=== PATIENT | male | born 1935 | race Hispanic/Latino ===

== ENCOUNTER 2017-12-07 08:13 | Inpatient (IN) | payer MEDICARE ==
[2017-12-07] MEDS ORDERED: Nitroglycerin 50 MG/250 ML BOT 0 ML ONE (08:24)
[2017-12-07] MEDS ORDERED: Nitroglycerin 0.4 MG TAB (25 Tab Bottle) ONE (08:27)
[2017-12-07 08:37] LABS: Actual Bicarbonate (HCO3a) 25.7 mEq/L (22-26); Base Excess (BEa) -0.5 mEq/L (0 (+/-) 2.5); Hematocrit-ABG 37.7 % (42.0-52.0); Hemoglobin (Hb) 11.8 g/dL (14.0-18.0); O2 Tension (PaO2) 64.9 mmHg (80.0-100.0); pH, Arterial 7.34 (7.35-7.45)
[2017-12-07 08:38] LABS: Analyzer IN Cardio ER; Calcium, Ionized 1.2 mmol/L (1.12-1.30); Puncture Site RRA
[2017-12-07 08:44] LABS: #Eosinphils 0.4 thou/uL (0.0-0.7); #Lymphocytes 1.5 thou/uL (1.20-3.40); #Monocytes 0.6 thou/uL (0.11-0.59); #Neutrophils 6.1 thou/uL (1.40-6.50); %Basophils 0.1 % (0.0-1.0); %Eosinophils 4.4 % (0.0-10.0); %Lymphocytes 17.4 % (21.0-51.0); %Monocytes 6.5 % (0.0-10.0); %Neutrophils 71.7 % (42.0-75.0); Hemoglobin 12.2 g/dL (14.0-18.0); Mean Corpuscular HGB CONC 33.6 g/dL (32.0-36.0); Mean Corpuscular Hemoglobin 30.3 pg (27.0-31.0); Mean Platelet Volume 7.9 fL (7.4-10.4); Platelet Count 235 thou/uL (130-400); RBC Distribution Width 15.5 % (11.5-14.5); Red Blood Cell (RBC) Count 4.03 mill/uL (4.70-6.10); White Blood Cell (WBC) Count 8.5 thou/uL (4.8-10.8)
[2017-12-07 08:51] LABS: INR-International Normal Ratio 2.3
--- NOTE | 2017-12-07 09:01 | RAD ---
CHEST ONE VIEW: History: Dyspnea. Comparison: 09-25-14 FINDINGS: Cardiac silhouette is magnified and enlarged. Pulmonary vasculature is engorged. Widespread reticular nodular interstitial opacity is present with partial obscuration of the left cardiac margin. The med iastinum is midline with post-operative changes and a dual lead left subclavian cardiac electronic de vice. environmental geologist leads overlie the chest. IMPRESSION: Cardiomegaly with pulmonary vasculature congestion. Clinical correlation regarding other signs and sy mptoms of CHF is required. POS: DASHAWN
[2017-12-07 09:07] LABS: ALT (SGPT) 15 U/L (8-55); AST (SGOT) 17 U/L (5-34); Alkaline Phosphatase 79 U/L (40-150); Anion Gap 11 mmol/L (10-20); BUN (Urea Nitrogen) 18 mg/dL (8.4-25.7); Bilirubin, Total 0.9 mg/dL (0.2-1.2); CK (CPK) 84 U/L (30-200); Calc. Creatinine Clearance 0 mL/min (70-130); Calcium 8.9 mg/dL (7.8-10.44); Carbon Dioxide 26 mmol/L (23-31); Chloride 109 mmol/L (98-107); Estimated GFR-MDRD Greater than 90; Globulin 3.9 g/dL (2.4-3.5); Glucose 172 mg/dL (83-110); Lipase 37 U/L (8-78); Magnesium 1.8 mg/dL (1.6-2.6); Potassium 3.8 mmol/L (3.5-5.1); Protein, Total 7.9 g/dL (5.8-8.1); Sodium 142 mmol/L (136-145)
[2017-12-07 09:10] LABS: CKMB 1.1 ng/mL (0-6.6); Troponin I Less than 0.010 ng/mL (< 0.028)
[2017-12-07] MEDS ORDERED: Lisinopril 10 MG TAB ONE (11:23)
[2017-12-07] MEDS ORDERED: Nitroglycerin 2% Ointment 1 INCH/1 GM Packet ONE (11:23)
[2017-12-07 12:26] LABS: Troponin I Less than 0.010 ng/mL (< 0.028)
--- NOTE | 2017-12-07 12:40 | CT ---
CT PULMONARY ANGIOGRAM WITH IV CONTRAST AND 3D POST PROCESSING: HISTORY: History of dyspnea. Chest pain. FINDINGS: There is good contrast opacification of the pulmonary arterial vasculature without filling defects to suggest pulmonary embolism. There are vascular calcifications without evidence of aneurysmal dilata tion of the thoracic aorta. There are changes of median sternotomy and CABG. No pericardial effusio ns are seen. There are bilateral pleural effusions, small on the left and moderate on the right. Ad jacent atelectatic changes are present. No pneumothoraces are identified. There are some prominent mediastinal and hilar lymph nodes and some of these are calcified. These are stable since CT chest o f 03/23/2016. There are degenerative changes of the spine. IMPRESSION: 1. No CT evidence of pulmonary embolism. 2. Bilateral pleural effusions, right larger than left. POS: OFF
[2017-12-07] MEDS ORDERED: ISOVUE-370 76%-LOCM 1 ML ONE (14:55)
[2017-12-07] MEDS ORDERED: Docusate 100 MG CAP PO PRN (15:20)
[2017-12-07] MEDS ORDERED: HYDROcodone/Acetaminophen 5/325 mg Tablet PO PRN ×3 (15:20→15:34)
[2017-12-07 15:29] LABS: Troponin I Less than 0.010 ng/mL (< 0.028)
[2017-12-07] MEDS ORDERED: Acetaminophen 325 MG TAB PO PRN (15:31)
[2017-12-07] MEDS ORDERED: Aspirin 325 MG TAB PO SCH (15:45)
[2017-12-07] MEDS ORDERED: Furosemide 40 MG/4 ML VIAL SLOW IVP SCH (15:45)
--- NOTE | 2017-12-07 16:04 | HP ---
DATE OF ADMISSION: 12/07/2017 CHIEF COMPLAINT: Shortness of breath. HISTORY OF PRESENT ILLNESS: This is an 82-year-old morbidly obese white male with a known history of cardiac bypass done many years ago and has a history of pacemaker. He has known history of hyperten johanna. He was in his usual state of health until yesterday. He noted swelling of his arms and he fel t some sort of shortness of breath which and this morning when he woke up, his blood pres sures were in 190s or sometimes in more than 200. It was associated with severe shortness of breath more on exertion, not associated with any chest pain, no nausea, no vomiting, no diarrhea, and no con stipation. He denied having any cough. Denied having any sick contacts. No history of fever. PAST MEDICAL HISTORY: 1. Hypertension. 2. Hyperlipidemia. 3. History of coronary artery disease with CABG. 4. Type 2 diabetes mellitus. 5. History of atrial fibrillation on Coumadin. 6. Hypothyroidism. 7. Obstructive sleep apnea. 8. Morbid obesity. PAST SURGICAL HISTORY: Right ankle surgery in 2009, CABG in 2001, triple bypass, herniated disk surg viridiana in 1993, right knee surgery in 1997, appendectomy in 2001. SOCIAL HISTORY: Former smoker, quit smoking 4 years ago. Lives with his family. ALLERGIES: PENICILLIN. FAMILY HISTORY: No significant family history of coronary artery disease or any cancers in the famil y. HOME MEDICATIONS: 1. Aspirin 81 mg p.o. daily. 2. Atorvastatin 40 mg p.o. daily. 3. Ciprofloxacin. 4. Docusate 100 mg p.o. daily. 5. Avodart 0.5 mg p.o. daily. 6. Lasix 80 mg p.o. daily. 7. Hydrocodone one tablet q.4 hours p.r.n. 8. Isosorbide mononitrate. 9. Levothyroxine. 10. Metoprolol 50 mg p.o. b.i.d. 11. Sitagliptin 1 tablet p.o. b.i.d. 12. Tamsulosin 0.4 mg p.o. daily. 13. Warfarin 2 mg p.o. as directed. REVIEW OF SYSTEMS: All 12 systems reviewed with the patient thoroughly and found to be negative at t his time. 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 PHYSICAL EXAMINATION: VITAL SIGNS: Blood pressure 194/110, respiratory rate is 18, saturation 100%, pulse of 68. GENERAL: The patient is moderately built and morbidly obese. He is alert and oriented x3. HEENT: Atraumatic, normocephalic. PERRLA. Extraocular muscles are intact. Oral mucous pink and mo ist. CARDIOVASCULAR: S1 and S2 normal. No murmurs, rubs or gallops. LUNGS: Bilateral air entry was equal. No wheezing, no crackles. ABDOMEN: Soft, nontender, no guarding, no rebound tenderness. Bowel sounds normal. MUSCULOSKELETAL: No calf tenderness. No pedal edema, no joint tenderness, no joint swelling. SKIN: No cyanosis, no erythema, no rash, no pallor. CENTRAL NERVOUS SYSTEM: Cranial nerve examination II-XII intact. No focal deficits were noted. PSYCHIATRIC: No signs of suicidal ideation and no signs of maury. LABORATORY DATA: WBC 8.5, hemoglobin is 12.2, hematocrit 36.2, platelets 235. Sodium is 142, potass ium 3.8, chloride is 109, bicarbonate 26, BUN is 18, creatinine 0.76, blood sugar 172, INR is 2.3. ASSESSMENT AND PLAN: 1. Acute accelerated hypertension. 2. Acute diastolic heart failure. 3. Acute hypoxic respiratory failure. 4. Type 2 diabetes mellitus. 5. Coronary artery disease with coronary artery bypass grafting. 6. History of atrial fibrillation on anticoagulation. PLAN: 1. Plan is to start the patient on Lasix at 40 mg IV b.i.d. and we will closely monitor the patient. The patient is started on nitropatch. In the ER, patient responded to sublingual nitro. He is alr nereyda on isosorbide mononitrate 60 mg. We will continue with this medication at this time. There was no lisinopril on the medication list, we will start the patient on lisinopril of 10 mg p.o. daily al mike with spironolactone of 12.5 mg p.o. daily. We will consult Cardiology and do a 2D echo to look f or any evidence of wall motion abnormality as the patient was complaining of dyspnea on exertion. Th e patient may need to be further evaluated for coronary artery disease. 2. Type 2 diabetes mellitus, well-controlled. We will hold off on the metformin at this time. Star t the patient on sliding scale insulin. 3. Atrial fibrillation, rate controlled at this time. We will continue the patient on Coreg and con tinue on Coumadin. INR is therapeutic at this time. 4. Morbid obesity: Encouraged the patient to lose weight for better control of the blood pressures. 5. Deep venous thrombosis prophylaxis, patient is on Coumadin. I spent 75 minutes on this patient.
[2017-12-07] MEDS ORDERED: Warfarin Sodium 2 MG TAB PO SCH (18:30)
[2017-12-07 18:41] VITALS: BMI 39.4
[2017-12-07 19:26] LABS: Hemoglobin 12.6 g/dL (14.0-18.0); Platelet Count 272 thou/uL (130-400)
[2017-12-07 19:33] LABS: INR-International Normal Ratio 2.2; PTT 36.5 SEC (22.9-36.1); Prothrombin Time 25.7 SEC (12.0-14.7)
[2017-12-07] MEDS ORDERED: Dextrose 5% in Water 1,000 ML IV PRN (21:21)
[2017-12-07] MEDS ORDERED: HumaLOG 300 UNITS/3 ML VIAL SC PRN (21:21)
[2017-12-07] MEDS ORDERED: Dextrose 50% Abboject 50 ML SYRINGE IVP PRN (21:21)
[2017-12-07] MEDS: Carvedilol 3.125 MG TAB PO SCH (21:52)
[2017-12-08 05:13] LABS: #Basophils 0.1 thou/uL (0.0-0.2); #Eosinphils 0.4 thou/uL (0.0-0.7); #Lymphocytes 1.5 thou/uL (1.20-3.40); #Monocytes 0.7 thou/uL (0.11-0.59); #Neutrophils 7.2 thou/uL (1.40-6.50); %Basophils 0.6 % (0.0-1.0); %Eosinophils 3.9 % (0.0-10.0); %Lymphocytes 14.9 % (21.0-51.0); %Monocytes 6.7 % (0.0-10.0); %Neutrophils 73.9 % (42.0-75.0); Hemoglobin 11.5 g/dL (14.0-18.0); Mean Corpuscular HGB CONC 33.5 g/dL (32.0-36.0); Mean Corpuscular Hemoglobin 29.3 pg (27.0-31.0); Mean Corpuscular Volume 87.4 fl (80.0-94.0); Mean Platelet Volume 7.6 fL (7.4-10.4); Platelet Count 243 thou/uL (130-400); RBC Distribution Width 15.3 % (11.5-14.5); Red Blood Cell (RBC) Count 3.92 mill/uL (4.70-6.10); White Blood Cell (WBC) Count 9.8 thou/uL (4.8-10.8)
[2017-12-08 05:28] LABS: Anion Gap 8 mmol/L (10-20); BUN (Urea Nitrogen) 17 mg/dL (8.4-25.7); Calc. Creatinine Clearance 112 mL/min (70-130); Calcium 8.8 mg/dL (7.8-10.44); Carbon Dioxide 32 mmol/L (23-31); Cardiac Risk 3.8 (Less than 4.5); Chloride 104 mmol/L (98-107); Cholesterol 102 mg/dl (< 200 Desired); Estimated GFR-MDRD Greater than 90; Glucose 89 mg/dL (83-110); HDL Cholesterol 27 mg/dL (>60 Neg Risk); LDL Cholesterol, Calculated 51 mg/dL; Sodium 141 mmol/L (136-145); Triglycerides 121 mg/dL (Less than 150)
[2017-12-08] MEDS: Furosemide 40 MG/4 ML VIAL SLOW IVP SCH ×2 (06:22→15:08)
[2017-12-08] MEDS: Levothyroxine Sodium 100 MCG TAB PO SCH (06:22)
[2017-12-08] MEDS ORDERED: Aspirin 81 mg Enteric Coated Tablet PO SCH (09:00)
[2017-12-08] MEDS ORDERED: Lisinopril 10 MG TAB PO SCH (09:00)
[2017-12-08] MEDS ORDERED: Enoxaparin Sodium 40 MG/0.4 ML SYRINGE SC SCH (09:00)
[2017-12-08] MEDS: Tamsulosin HCl 0.4 MG CAP PO SCH (09:23)
[2017-12-08] MEDS: Spironolactone 25 MG TAB PO SCH (09:23)
[2017-12-08] MEDS: Aspirin 325 MG TAB PO SCH (09:23)
[2017-12-08] MEDS: Atorvastatin Calcium 40 MG TAB PO SCH (09:23)
[2017-12-08] MEDS: Dutasteride 0.5 MG CAP PO SCH (09:23)
[2017-12-08] MEDS: Carvedilol 3.125 MG TAB PO SCH (09:24)
[2017-12-08] MEDS: Insulin NPH/Reg Insulin Hm 300 UNITS/3 ML VIAL SC SCH ×2 (09:26→20:58)
--- NOTE | 2017-12-08 13:24 | PQF ---
CLINICAL DOCUMENTATION IMPROVEMENT CLARIFICATION FORM: ICD-10 Updated PLEASE DO AN ADDENDUM TO THE PROGRESS NOTE WITH ANY DOCUMENTATION UPDATES OR ADDITIONS AND CARRY THROUGH TO DC SUMMARY. THANK YOU. DATE: 12/08/17 ATTN: DR. ZAMORA / DR. IBRAHIM Please exercise your independent, professional judgment in responding to the clarification form. Clinical indicators are provided on the bottom of this form for your review Please check appropriate box(s): [ ] Acute Respiratory Failure: [ ] with Hypoxia[ ] with Hypercapnia [ ] Acute On Chronic Respiratory Failure: [ ] with Hypoxia [ ] with Hypercapnia [ ] Acute Respiratory Failure due to: (etiology) [ ] Acute Respiratory Insufficiency following (if applicable): [ ] trauma [ ] surgery [ ] Chronic Respiratory Failure only [ ] with Hypoxia [ ] with Hypercapnia [ ] Hypoxia [ ] Other diagnosis [ ] Unable to determine In addition, please specify: Present on Admission (POA): [ ] Yes [ ] No [ ] Unable to determine For continuity of documentation, please document condition throughout progress notes and discharge summary. Thank You. CLINICAL INDICATORS - SIGNS / SYMPTOMS / LABS RR 34 86% ROOM AIR RISKS: CHF EXACERBATION TREATMENT: BIPAP IV LASIX SPIRONOLACTONE CARDIAC MONITORING (This form is maintained as a part of the permanent medical record) 2014 [employer]. All Rights Reserved [email or web address] Office: [phone] [facility]
--- NOTE | 2017-12-08 13:50 | PDOC.PN ---
- Subjective Encounter Start Date: 12/08/17 Encounter Start Time: 13:49 Mr. Malloy was seen today in follow-up of CHF. He says he is breathing much better today. He denies any chest pain. - Objective Resuscitation Status: Resuscitation Status FULL:Full Resuscitation MAR Reviewed: Yes Vital Signs & Weight: Vital Signs (12 hours) Temp Pulse Pulse Pulse Pulse Resp BP 12/08/17 11:38 86 75 72 12/08/17 10:46 68 62 12/08/17 09:24 169/72 H 12/08/17 08:00 97.8 F 62 18 12/08/17 04:00 97.8 F 62 18 BP BP BP BP Pulse Ox Pulse Ox Pulse Ox 12/08/17 11:38 192/79 H 162/72 H 144/67 H 85 L 93 L 12/08/17 10:46 168/72 H 168/77 H 92 L 90 L 12/08/17 09:24 12/08/17 08:00 169/72 H 98 12/08/17 04:00 137/66 98 Pulse Ox 12/08/17 11:38 92 L 12/08/17 10:46 12/08/17 09:24 12/08/17 08:00 12/08/17 04:00 Weight Weight 201 lb 9 oz I&O: 12/07/17 12/08/17 12/09/17 06:59 06:59 06:59 Intake Total 320 Balance 320 Result Diagrams: 12/08/17 04:18 12/08/17 04:18 Additional Labs: Accuchecks 12/07/17 12/07/17 20:52 18:23 POC Glucose 133 H 91 Phys Exam - Physical Examination HEENT: PERRLA Respiratory: no wheezing, no rales, no rhonchi, clear to auscultation bilateral Cardiovascular: RRR, no significant murmur, no rub Gastrointestinal: soft, non-tender, no distention, positive bowel sounds Musculoskeletal: edema present 1+ pedal edema Dx/Plan (1) CHF exacerbation Code(s): I50.9 - HEART FAILURE, UNSPECIFIED Status: Acute (2) Hypertension, uncontrolled Code(s): I10 - ESSENTIAL (PRIMARY) HYPERTENSION Status: Acute (3) Atrial fibrillation Code(s): I48.91 - UNSPECIFIED ATRIAL FIBRILLATION Status: Acute (4) Diabetes mellitus Code(s): E11.9 - TYPE 2 DIABETES MELLITUS WITHOUT COMPLICATIONS Status: Acute - Plan * CHF exacerbation- ? type- his last Echo in our system was in 2014, and the EF at that time was 55%- Continue IV Lasix, and await Echo * Also await Cardiology input * HTN- poorly controlled- he says thiis is a recent problem, as his blood pressure had been well controlled- will monitor the trend, and consider increasing the dose of Lisinopril * DM- blood glucose is stable * Replace Potassium * AFIB- HR is stable- monitor PT/INR
[2017-12-08] MEDS ORDERED: Potassium Chloride 20 MEQ TAB PO SCH (14:00)
[2017-12-08] MEDS: Warfarin Sodium 1 MG TAB PO SCH (16:30)
[2017-12-08 20:15] LABS: INR-International Normal Ratio 2.5; PTT 39.4 SEC (22.9-36.1); Prothrombin Time 27.8 SEC (12.0-14.7)
[2017-12-08] MEDS: Metoprolol Tartrate 100 MG TAB PO SCH (20:57)
[2017-12-09] MEDS: Furosemide 40 MG/4 ML VIAL SLOW IVP SCH ×2 (05:37→15:31)
[2017-12-09] MEDS: Levothyroxine Sodium 100 MCG TAB PO SCH (05:37)
[2017-12-09] MEDS: Metoprolol Tartrate 100 MG TAB PO SCH ×2 (09:18→20:54)
[2017-12-09] MEDS: Spironolactone 25 MG TAB PO SCH (09:18)
[2017-12-09] MEDS: Aspirin 325 MG TAB PO SCH (09:19)
[2017-12-09] MEDS: Dutasteride 0.5 MG CAP PO SCH (09:19)
[2017-12-09] MEDS: Atorvastatin Calcium 40 MG TAB PO SCH (09:19)
[2017-12-09] MEDS: Tamsulosin HCl 0.4 MG CAP PO SCH (09:19)
--- NOTE | 2017-12-09 09:34 | CON ---
DATE OF CONSULTATION: 12/08/2017 HISTORY OF PRESENT ILLNESS: Thanh Malloy is an 82-year-old male that I have been following since November 1993. 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 With exertion, he had burning in his chest associated with shortness of breath, relieved with rest in 1 minute. He went to the [facility] for evaluation and was found to have minor changes on his EKG and was transferred to [place]. He had biphasic anterolateral T-wave changes. He underwent cardiac catheterization and had a 90% proximal LAD with the distal vessel filling retrograde from the right coronary artery. There was a 50% proximal circumflex and 60% first obtuse marginal lesion. He had normal left ventricular function. Later that day, he returned to the sugar laboratory assistant and underwent directional coronary atherectomy of the proximal LAD with final result of 10%. In 05/1994, he underwent treadmill testing, which was negative for ischemia. He did not return for followup. In 07/2002, he had an abnormal Cardiolite scan and underwent repeat catheterization by Dr. Willis. This revealed a 90% LAD, 95% apical LAD, 75% circumflex, 99% second obtuse marginal. The right coronary artery did not have any significant disease. He underwent CABG x3 with ALCALA to the LAD and vein graft to the second obtuse marginal and radial artery to the first obtuse marginal. Postoperatively, he had atrial fibrillation. I did see him in 10/2005 and he was walking 2-1/2 to 4 miles per day without difficulty. He was not seen again until 11/2011 when he was admitted complaining of throat soreness and mild cough for 3 days. He had a temperature of 102 at home. He also complained of chest discomfort in the upper part of his sternal incision that was tender to the touch. He was in atrial fibrillation when he presented to the emergency room. CT angiogram was performed due to elevated D-dimer. This revealed no evidence of pulmonary embolism. He was placed on Cardizem drip and converted back to sinus rhythm. He was placed on beta-brooke and Cardizem was tapered. He was on amlodipine and had leg edema and the amlodipine was stopped and he was gently diuresed. He was placed on Lovenox and then Coumadin. 2-1/2 weeks later, he returned with increased shortness of breath and COPD exacerbation. He was noted to be bradycardic with heart rates in the 40s. Due to his bradycardia, metoprolol was reduced and then he started to have episodes of supraventricular tachycardia and possible atrial flutter and atrial fibrillation. He was again given metoprolol and his heart rate was in the 40s. He was seen by Dr. Grover and it was recommended that a pacemaker be placed. Coumadin was held and he ultimately underwent pacemaker placement. He was then placed on Multaq 400 b.i.d. and Coumadin was restarted. In 03/2012, he was doing well when seen in the office. Pacemaker interrogation showed that he had multiple short episodes per day of atrial fibrillation. He was placed on digoxin for better rate control. In 05/2012, he was still having intermittent episodes of atrial fibrillation and his atrial therapies on his pacemaker were turned on. In 07/2012, he was admitted with increased shortness of breath, which was felt to be due to acute on chronic diastolic heart failure. He was placed on intravenous diuretics and his symptoms improved. During that admission, he was chronically in atrial fibrillation. In 08/2012, he again presented complaining of 5-7 days of worsening dyspnea. During that admission, he was seen by Dr. Linda. It was recommended that he undergo catheter ablation of his atrial fibrillation with his significant diastolic dysfunction. Echo during that admission revealed ejection fraction of 50%-55% with evidence of diastolic dysfunction. Tikosyn was also discussed, however, he declined. He was then admitted one month later in September 2012 with increased lower extremity edema for 3-4 days and shortness of breath. He was in atrial fibrillation. Multaq was discontinued at that time. He again declined Tikosyn. He ultimately underwent radiofrequency ablation of the atrial fibrillation on 10/20/2012. Apparently after that, he did not have any significant rhythm issues. After the ablation, he noticed a dramatic increase in his exercise tolerance. In 07/2013, he had no symptoms. In 03/2014, he had been working in a 1 to 1.5 acre garden and continued to work outside. He was then admitted in 09/2014 with left-sided chest discomfort that radiated to his left arm. This lasted for 3-4 hours and ultimately he came to the emergency room. Peak troponin I was 2.135, MBs were normal. He ultimately underwent cardiac catheterization. This revealed moderate anterior hypokinesis with ejection fraction of 45%-50%. The left main had a 60% stenosis, 70% proximal LAD. The diagonal was totally occluded and filled from the graft to the first obtuse marginal and graft to the second obtuse marginal. There was 60 % ramus. The circumflex had an 80% proximal stenosis and was totally occluded in its mid portion. The right coronary artery had a 50% proximal stenosis and 50% distal stenosis. Bypass grafts revealed patent ALCALA to the LAD; however, there was 95% distal LAD and a diffuse disease. The left radial to the first obtuse marginal was patent. The vein to the second obtuse marginal was patent. It was felt that his coronary anatomy was stable except for the diffuse LAD disease distal to the ALCALA. It was also discovered during that admission that he had stopped metoprolol 50 b.i.d. 6-8 weeks prior to admission. After his metoprolol was resumed, he had significant improvement in his breathing. He has continued to be followed in the office. He did need to undergo pacemaker replacement for pacemaker at end of life in 02/2017. He was last seen on 2017. He denied any chest discomfort or shortness of breath. His blood pressure is 137/85 during that office visit. He now is admitted with increased shortness of breath, one episode that lasted 10-15 seconds, but then he had another episode that was continuous. His took his blood pressure and it was 220/104, and he was brought to the emergency room for further evaluation. With intravenous Lasix, his breathing has improved and he feels like he is pretty much back to normal. He denies having run out of any of his medications. He denies any chest discomfort. PAST MEDICAL HISTORY: Hypertension; diabetes; hyperlipidemia; obesity; hypothyroidism; COPD; obstructive sleep apnea, on CPAP; tachybrady syndrome; history of diastolic heart failure; coronary artery disease. PAST SURGICAL HISTORY: CABG, pacemaker placement and ultimately replacement in 02/2017, radiofrequency ablation of atrial fibrillation. MEDICATIONS: When he was last seen in the office include, aspirin 81 daily, atorvastatin 20 mg daily, finasteride 5 mg daily, furosemide 80 mg q.a.m., insulin NPH, isosorbide mononitrate 60, levothyroxine 100 mcg daily, metoprolol 50 mg 1-1/2 tablets b.i.d., potassium 20 mEq daily, Janumet 1 tablet b.i.d., Flomax 0.4 daily, and warfarin. ALLERGIES: PENICILLIN. SOCIAL HISTORY: He smoked 3 packs per day, but stopped 43 years ago. He has not had any alcohol in 38 years. 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 FAMILY HISTORY: Negative for myocardial infarction and CABG. REVIEW OF SYSTEMS: Twelve-point review of systems is otherwise unremarkable. PHYSICAL EXAMINATION: VITAL SIGNS: Blood pressure 120/58, pulse of 65. HEENT: PERRL. NECK: Supple. CHEST: Clear. CARDIAC: S1 and S2 are normal without any S3 or S4. There was a 2/6 systolic murmur in the aortic area. Carotid upstrokes normal. ABDOMEN: Normal bowel sounds without tenderness. The abdomen is obese. EXTREMITIES: Revealed 1+ pretibial edema. NEUROLOGIC: Grossly intact. SKIN: Warm and dry. LABORATORY DATA: EKG reveals atrial pacing without any acute changes, although there is lot of baseline artifact. I do not see the pacemaker interrogation in the chart; however, [employer] account service representative stated that there was no atrial fibrillation. Chest x-ray revealed cardiomegaly with pulmonary vascular congestion and a pacemaker in place. Chest CTA revealed no evidence of pulmonary embolism. There were bilateral pleural effusions. Hemoglobin 11.5, hematocrit 34.2, white count 5800, platelets 243,000. PH 7.34 , pCO2 49.0, pO2 64.9. Sodium 141, potassium 3.0, chloride 104, carbon dioxide 32, BUN 17, creatinine 0.68. Cholesterol 102, triglycerides 121, HDL 27, LDL 51. Cardiac enzymes were unremarkable. BNP is 166.2. IMPRESSION: 1. Acute on chronic diastolic heart failure. 2. Aortic valvular fibrosis in the past; however, this certainly may have progressed since his last echo was 3 years ago. 3. Status post coronary artery bypass graft x3 with grafts patent in 09/2014. 4. History of tachybrady syndrome with paroxysmal atrial fibrillation as well as episodes of significant bradycardia. He has undergone radiofrequency ablation of his atrial fibrillation and pacemaker placement. 5. Continued episodes of atrial arrhythmias on pacemaker, although these were coming less frequent. 6. Diabetes mellitus. 7. Hyperlipidemia, under good control. 8. Hypertension. 9. Obesity. 10. Obstructive sleep apnea. PLAN: The patient will undergo echocardiography. He will continue to be diuresed. We will increase his metoprolol to 100 mg b.i.d. MTDD
--- NOTE | 2017-12-09 10:48 | PDOC.PN ---
- Subjective Encounter Start Date: 12/09/17 Encounter Start Time: 10:46 Mr. Malloy was seen today in follow-up. He says he is feeling much better. He denies feeling short of breath. He denies any chest pain. - Objective Resuscitation Status: Resuscitation Status FULL:Full Resuscitation MAR Reviewed: Yes Vital Signs & Weight: Vital Signs (12 hours) Temp Pulse Resp BP Pulse Ox 12/09/17 07:25 97.4 F L 61 18 169/71 H 98 12/09/17 07:15 97.4 F L 61 18 98 12/09/17 04:00 97.4 F L 63 16 130/60 93 L 12/09/17 01:03 63 16 95 Weight Weight 197 lb 1 oz I&O: 12/08/17 12/09/17 12/10/17 06:59 06:59 06:59 Intake Total 320 150 Output Total 250 Balance 320 -100 Result Diagrams: 12/08/17 04:18 12/08/17 04:18 Additional Labs: Accuchecks 12/09/17 12/08/17 12/08/17 06:03 20:23 15:27 POC Glucose 77 242 H 116 H Phys Exam - Physical Examination HEENT: PERRLA Respiratory: no wheezing, no rales, no rhonchi, clear to auscultation bilateral Cardiovascular: RRR, no significant murmur, no rub Gastrointestinal: soft, non-tender, no distention, positive bowel sounds Musculoskeletal: edema present 1+ pitting edema Dx/Plan (1) CHF exacerbation Code(s): I50.9 - HEART FAILURE, UNSPECIFIED Status: Acute (2) Hypertension, uncontrolled Code(s): I10 - ESSENTIAL (PRIMARY) HYPERTENSION Status: Acute (3) Atrial fibrillation Code(s): I48.91 - UNSPECIFIED ATRIAL FIBRILLATION Status: Acute (4) Diabetes mellitus Code(s): E11.9 - TYPE 2 DIABETES MELLITUS WITHOUT COMPLICATIONS Status: Acute (5) Diuretic-induced hypokalemia Code(s): E87.6 - HYPOKALEMIA; T50.2X5A - ADVRS EFF OF CRBNC-ANHYDR INHIBTR, BENZO/OTH DIURETC, INIT Status: Acute - Plan * Acute on chronic diastolic heart failure- continue IV Lasix * He is diuresing well and has lost 3 pounds * Echo results are pending * DM- blood glucose is stable. * AFIB- his heart rate is stable, periodically paced * Repeat BMP, and replace potassium as needed * Disposition as per Cardiology
[2017-12-09 11:40] LABS: Anion Gap 13 mmol/L (10-20); BUN (Urea Nitrogen) 19 mg/dL (8.4-25.7); Calc. Creatinine Clearance 94 mL/min (70-130); Carbon Dioxide 30 mmol/L (23-31); Chloride 102 mmol/L (98-107); Estimated GFR-MDRD Greater than 90; Glucose 150 mg/dL (83-110); Potassium 3.7 mmol/L (3.5-5.1); Sodium 141 mmol/L (136-145)
[2017-12-09] MEDS: Insulin NPH/Reg Insulin Hm 300 UNITS/3 ML VIAL SC SCH ×2 (15:30→20:54)
[2017-12-09] MEDS: Warfarin Sodium 2 MG TAB PO SCH (16:22)
[2017-12-09 19:18] LABS: Platelet Count 267 thou/uL (130-400)
[2017-12-09 19:25] LABS: PTT 37.3 SEC (22.9-36.1)
[2017-12-09 19:26] LABS: INR-International Normal Ratio 2.3
[2017-12-10 06:05] LABS: INR-International Normal Ratio 2.5; Prothrombin Time 27.6 SEC (12.0-14.7)
[2017-12-10 06:09] LABS: Anion Gap 10 mmol/L (10-20); BUN (Urea Nitrogen) 22 mg/dL (8.4-25.7); Calc. Creatinine Clearance 99 mL/min (70-130); Calcium 8.5 mg/dL (7.8-10.44); Carbon Dioxide 31 mmol/L (23-31); Chloride 105 mmol/L (98-107); Estimated GFR-MDRD Greater than 90; Glucose 63 mg/dL (83-110); Potassium 3.1 mmol/L (3.5-5.1); Sodium 143 mmol/L (136-145)
[2017-12-10] MEDS: Levothyroxine Sodium 100 MCG TAB PO SCH (06:09)
[2017-12-10] MEDS: Furosemide 40 MG/4 ML VIAL SLOW IVP SCH (06:09)
--- NOTE | 2017-12-10 08:14 | PDOC.PN ---
- Subjective Encounter Start Date: 12/10/17 Encounter Start Time: 08:12 Mr. Malloy was seen today in follow-up. He does not have any complaints. He says he has walked all around the nursing station without proble. He denies chest pain or difficulty breathing. - Objective Resuscitation Status: Resuscitation Status FULL:Full Resuscitation MAR Reviewed: Yes Vital Signs & Weight: Vital Signs (12 hours) Temp Pulse Resp BP Pulse Ox 12/10/17 03:44 97.4 F L 62 18 164/77 H 92 L Weight Weight 198 lb 8 oz I&O: 12/09/17 12/10/17 12/11/17 06:59 06:59 06:59 Intake Total 150 630 Output Total 250 600 Balance -100 30 Result Diagrams: 12/09/17 19:12 12/10/17 05:31 Additional Labs: Accuchecks 12/10/17 12/09/17 12/09/17 06:11 20:31 15:54 POC Glucose 67 L 264 H 165 H 12/09/17 10:28 POC Glucose 156 H Phys Exam - Physical Examination HEENT: PERRLA Respiratory: no wheezing, no rales, no rhonchi, clear to auscultation bilateral Cardiovascular: RRR, no significant murmur, no rub Gastrointestinal: soft, non-tender, no distention, positive bowel sounds Musculoskeletal: no edema Dx/Plan (1) CHF exacerbation Code(s): I50.9 - HEART FAILURE, UNSPECIFIED Status: Acute Qualifiers: Heart failure type: diastolic Qualified Code(s): I50.33 - Acute on chronic diastolic (congestive) heart failure (2) Hypertension, uncontrolled Code(s): I10 - ESSENTIAL (PRIMARY) HYPERTENSION Status: Chronic (3) Atrial fibrillation Code(s): I48.91 - UNSPECIFIED ATRIAL FIBRILLATION Status: Chronic (4) Diabetes mellitus Code(s): E11.9 - TYPE 2 DIABETES MELLITUS WITHOUT COMPLICATIONS Status: Chronic (5) Diuretic-induced hypokalemia Code(s): E87.6 - HYPOKALEMIA; T50.2X5A - ADVRS EFF OF CRBNC-ANHYDR INHIBTR, BENZO/OTH DIURETC, INIT Status: Acute - Plan * Acute on chronic diastolic heart failure- patient has diuresed well. He has also symptomatically improved * Echo results noted EF is estimated at 55-60% with LVH * Hypokalemia- replace Potassium * DM- blood glucose is a bit low, will monitor * Likely home soon.
--- NOTE | 2017-12-10 08:15 | RAD ---
CHEST 1 VIEW: Date: 12/10/17 HISTORY: Pulmonary edema. COMPARISON: 12/07/17. FINDINGS: Cardiac silhouette is magnified and upper limits of normal in size. Pulmonary vasculature is upper li mits of normal but improved compared to the prior study. Mediastinum is midline with postoperative ch anges, aortic calcification, and a dual lead left subclavian cardiac electronic device. No lobar cons olidation or evidence of pneumothorax. rac specialist leads overlie the chest. IMPRESSION: Interval decrease in degree of pulmonary vascular congestion. POS: DASHAWN
[2017-12-10] MEDS ORDERED: Potassium Chloride 20 MEQ TAB PO SCH (08:30)
[2017-12-10] MEDS: Aspirin 325 MG TAB PO SCH (09:10)
[2017-12-10] MEDS: Tamsulosin HCl 0.4 MG CAP PO SCH (09:10)
[2017-12-10] MEDS: Dutasteride 0.5 MG CAP PO SCH (09:10)
[2017-12-10] MEDS: Spironolactone 25 MG TAB PO SCH (09:11)
[2017-12-10] MEDS: Atorvastatin Calcium 40 MG TAB PO SCH (09:11)
[2017-12-10] MEDS: Metoprolol Tartrate 100 MG TAB PO SCH ×2 (09:12→20:35)
[2017-12-10] MEDS: Insulin NPH/Reg Insulin Hm 300 UNITS/3 ML VIAL SC SCH ×2 (09:15→20:35)
--- NOTE | 2017-12-10 13:01 | PDOC.CTH ---
<Connie aNsh - Last Filed: 12/10/17 12:59> Cardiology Progress Note - Subjective The pt seen and examined. No overnight events. No cardiac complaints. He has walked the jenkins for more than 4 times with RA and no cardiac complaints. - Objective Vital Signs Temp Pulse Resp BP BP Pulse Ox 12/10/17 12:00 98.2 F 60 16 159/75 H 92 L 12/10/17 08:07 98.5 F 63 20 180/81 H 91 L 12/10/17 03:44 97.4 F L 62 18 164/77 H 92 L Weight 198 lb 8 oz 12/09/17 12/10/17 12/11/17 06:59 06:59 06:59 Intake Total 150 630 Output Total 250 600 Balance -100 30 - Physical Examination General/Neuro: alert & oriented x3 Neck: no JVD present Lungs: CTA, other: Heart: RRR Abdomen: soft Extremities: other: - Telemetry Telemetry Rhythm: A paced - Labs Result Diagrams: 12/09/17 19:12 12/10/17 05:31 Troponin/CKMB CK-MB (CK-2) 1.1 ng/mL (0-6.6) 12/07/17 08:37 Troponin I Less than 0.010 ng/mL (< 0.028) 12/07/17 14:56 - Assessment/Plan 1. Acute on Chronic diastolic HF - stable; On BBlocker; change Lasix 40mg BID from IV to PO; start Lisinopril 20mg daily 2. Paroxysmal Afib - remains in SR; on BBlokcer and Coumadin; cont. to monitor on tele 3. HTN - start Lisinopril 20mg daily; cont. to monitor 4. Hx of SSS with PM placement - A paced; 5. CAD with hx of CABG x3 in 2014 - stable with bblocker, ASA, and statin; 6. Hyperlipidemia - on Statin 7. DM type 2 - managed by PCP 8. MYRNA MAR reviewed * Echo on 12/09/17 showed EF 55-60%, mod LA diated, Mod MR, mild-mod , mild TR Review of Systems - Review of Systems Constitutional: reports: no symptoms reported EENTM: reports: no symptoms reported Respiratory: reports: no symptoms reported Cardiac (ROS): reports: no symptoms reported ABD/GI: reports: no symptoms reported : reports: no symptoms reported Musculoskeletal: reports: no symptoms reported Skin: reports: no symptoms reported Neurological: reports: no symptoms reported <Ashu North - Last Filed: 12/11/17 00:09> Cardiology Progress Note - Objective Vital Signs Temp Pulse Resp BP BP Pulse Ox 12/10/17 20:05 96.5 F L 62 16 149/65 H 94 L 12/10/17 16:00 98.0 F 67 16 165/73 H 92 L 12/10/17 15:14 159/75 H Weight 198 lb 8 oz 12/09/17 12/10/17 12/11/17 06:59 06:59 06:59 Intake Total 150 630 Output Total 250 600 Balance -100 30 - Labs Result Diagrams: 12/09/17 19:12 12/10/17 05:31 Troponin/CKMB CK-MB (CK-2) 1.1 ng/mL (0-6.6) 12/07/17 08:37 Troponin I Less than 0.010 ng/mL (< 0.028) 12/07/17 14:56 - Assessment/Plan Pt. seen and eval. by me. I agree with the A/P by the KICK PRESS OPERATOR. We discussed the pt. and plan.
[2017-12-10] MEDS ORDERED: Lisinopril 20 MG TAB PO SCH (14:00)
[2017-12-10] MEDS: Furosemide 40 MG TAB PO SCH (15:14)
[2017-12-10] MEDS: Warfarin Sodium 1 MG TAB PO SCH (16:18)
[2017-12-10 19:20] LABS: INR-International Normal Ratio 2.3; Prothrombin Time 26.4 SEC (12.0-14.7)
[2017-12-10 19:21] LABS: PTT 35.4 SEC (22.9-36.1)
[2017-12-11] MEDS: Levothyroxine Sodium 100 MCG TAB PO SCH (05:36)
[2017-12-11 05:51] LABS: Anion Gap 12 mmol/L (10-20); BUN (Urea Nitrogen) 22 mg/dL (8.4-25.7); Calc. Creatinine Clearance 104 mL/min (70-130); Calcium 8.8 mg/dL (7.8-10.44); Carbon Dioxide 27 mmol/L (23-31); Chloride 108 mmol/L (98-107); Estimated GFR-MDRD Greater than 90; Glucose 76 mg/dL (83-110); Potassium 3.5 mmol/L (3.5-5.1); Sodium 143 mmol/L (136-145)
[2017-12-11 06:27] LABS: Prothrombin Time 23.5 SEC (12.0-14.7)
[2017-12-11] MEDS: Atorvastatin Calcium 40 MG TAB PO SCH (09:14)
[2017-12-11] MEDS: Dutasteride 0.5 MG CAP PO SCH (09:14)
[2017-12-11] MEDS: Aspirin 325 MG TAB PO SCH (09:15)
[2017-12-11] MEDS: Spironolactone 25 MG TAB PO SCH (09:15)
[2017-12-11] MEDS: Tamsulosin HCl 0.4 MG CAP PO SCH (09:15)
[2017-12-11] MEDS: Metoprolol Tartrate 100 MG TAB PO SCH ×2 (09:16→21:44)
[2017-12-11] MEDS: Lisinopril 20 MG TAB PO SCH (09:16)
[2017-12-11] MEDS: Furosemide 40 MG TAB PO SCH ×2 (09:17→15:11)
[2017-12-11] MEDS: Insulin NPH/Reg Insulin Hm 300 UNITS/3 ML VIAL SC SCH ×2 (09:17→21:37)
--- NOTE | 2017-12-11 09:58 | PDOC.PN ---
- Subjective Encounter Start Date: 12/11/17 Encounter Start Time: 09:56 Mr. Malloy was seen today in follow-up of acute renal failure. He does not have any complaints this morning. He denies dyspnea, or chest pain. - Objective Resuscitation Status: Resuscitation Status FULL:Full Resuscitation MAR Reviewed: Yes Vital Signs & Weight: Vital Signs (12 hours) Temp Pulse Resp BP BP Pulse Ox 12/11/17 09:16 203/84 H 12/11/17 04:11 97.7 F 61 18 152/69 H 94 L 12/11/17 00:13 97.4 F L 61 16 145/68 H 94 L Weight Weight 197 lb 9.6 oz I&O: 12/10/17 12/11/17 12/12/17 06:59 06:59 06:59 Intake Total 630 Output Total 600 Balance 30 Result Diagrams: 12/09/17 19:12 12/11/17 05:09 Additional Labs: Accuchecks 12/11/17 12/10/17 12/10/17 06:00 20:07 15:32 POC Glucose 85 206 H 124 H 12/10/17 10:51 POC Glucose 154 H Phys Exam - Physical Examination HEENT: PERRLA Respiratory: no wheezing, no rales, no rhonchi, clear to auscultation bilateral Cardiovascular: RRR, no significant murmur, no rub Gastrointestinal: soft, non-tender, no distention, positive bowel sounds Musculoskeletal: edema present trace pedal edema Dx/Plan (1) CHF exacerbation Code(s): I50.9 - HEART FAILURE, UNSPECIFIED Status: Acute Qualifiers: Heart failure type: diastolic Qualified Code(s): I50.33 - Acute on chronic diastolic (congestive) heart failure (2) Hypertension, uncontrolled Code(s): I10 - ESSENTIAL (PRIMARY) HYPERTENSION Status: Chronic (3) Atrial fibrillation Code(s): I48.91 - UNSPECIFIED ATRIAL FIBRILLATION Status: Chronic (4) Diabetes mellitus Code(s): E11.9 - TYPE 2 DIABETES MELLITUS WITHOUT COMPLICATIONS Status: Chronic (5) Diuretic-induced hypokalemia Code(s): E87.6 - HYPOKALEMIA; T50.2X5A - ADVRS EFF OF CRBNC-ANHYDR INHIBTR, BENZO/OTH DIURETC, INIT Status: Acute - Plan * Acute on chronic diastolic heart failure- improved he has diuresed well * HTN- blood pressure is labile- ? spike in BP this morning- Lisinopril has been added, and Metoprolol was increased * DM- blood glucose is stable * AFIB- heart rate is stable, and INR is therapeutic * possible home today.
[2017-12-11] MEDS ORDERED: Amlodipine 5 MG TAB PO SCH ×2 (13:00→15:30)
--- NOTE | 2017-12-11 15:17 | PDOC.CTH ---
<Connie Nash - Last Filed: 12/11/17 15:17> Cardiology Progress Note - Subjective The pt seen and examined. No overnight events. No cardiac complaints. He has been walking around the unit without any cardiac complaints. - Objective Vital Signs Temp Pulse Pulse Pulse Resp BP BP 12/11/17 12:00 98.2 F 64 16 12/11/17 10:08 87 64 190/89 H 12/11/17 09:16 203/84 H 12/11/17 08:00 96.3 F L 61 16 12/11/17 04:11 97.7 F 61 18 BP BP Pulse Ox Pulse Ox Pulse Ox 12/11/17 12:00 166/68 H 94 L 12/11/17 10:08 192/84 H 92 L 93 L 12/11/17 09:16 12/11/17 08:00 203/84 H 94 L 12/11/17 04:11 152/69 H 94 L Weight 197 lb 9.6 oz 12/10/17 12/11/17 12/12/17 06:59 06:59 06:59 Intake Total 630 Output Total 600 Balance 30 - Physical Examination General/Neuro: alert & oriented x3 Neck: no JVD present Lungs: CTA (diminished at bases) Heart: RRR Abdomen: soft Extremities: other: (1+ pitting edemas) - Telemetry Telemetry Rhythm: A paced 70s - Labs Result Diagrams: 12/09/17 19:12 12/11/17 05:09 Troponin/CKMB CK-MB (CK-2) 1.1 ng/mL (0-6.6) 12/07/17 08:37 Troponin I Less than 0.010 ng/mL (< 0.028) 12/07/17 14:56 - Assessment/Plan 1. Acute on Chronic diastolic HF - stable; On BBlocker and CRYS; change Lasix 40mg BID from IV to PO; 2. Paroxysmal Afib - remains in SR; on BBlokcer and Coumadin; cont. to monitor on tele 3. HTN - Still remains elevated with Lisinopril 20mg daily and Metoprolol 100mg BID; Start Norvasc 5mg daily; cont. to monitor 4. Hx of SSS with PM placement - A paced; 5. CAD with hx of CABG x3 in 2014 - stable with bblocker, ASA, and statin; 6. Hyperlipidemia - on Statin 7. DM type 2 - managed by PCP 8. MYRNA MAR reviewed * Echo on 12/09/17 showed EF 55-60%, mod LA diated, Mod MR, mild-mod , mild TR Review of Systems - Review of Systems Constitutional: reports: no symptoms reported EENTM: reports: no symptoms reported Respiratory: reports: no symptoms reported Cardiac (ROS): reports: no symptoms reported ABD/GI: reports: no symptoms reported : reports: no symptoms reported Musculoskeletal: reports: no symptoms reported <Ashu North - Last Filed: 12/11/17 19:41> Cardiology Progress Note - Objective Vital Signs Temp Pulse Pulse Pulse Resp BP BP 12/11/17 17:50 68 12/11/17 17:46 60 128/60 12/11/17 12:00 98.2 F 64 16 12/11/17 10:08 87 64 190/89 H 12/11/17 09:16 203/84 H 12/11/17 08:00 96.3 F L 61 16 BP BP Pulse Ox Pulse Ox Pulse Ox 12/11/17 17:50 128/60 12/11/17 17:46 12/11/17 12:00 166/68 H 94 L 12/11/17 10:08 192/84 H 92 L 93 L 12/11/17 09:16 12/11/17 08:00 203/84 H 94 L Weight 197 lb 9.6 oz 12/10/17 12/11/17 12/12/17 06:59 06:59 06:59 Intake Total 630 Output Total 600 Balance 30 - Labs Result Diagrams: 12/11/17 19:02 12/11/17 05:09 Troponin/CKMB CK-MB (CK-2) 1.1 ng/mL (0-6.6) 12/07/17 08:37 Troponin I Less than 0.010 ng/mL (< 0.028) 12/07/17 14:56 - Assessment/Plan Pt. seen and eval. by me. I agree with the A/P by the RECLAMATION WORKER. We discussed the pt. and plan.
[2017-12-11] MEDS: Warfarin Sodium 2 MG TAB PO SCH (17:46)
[2017-12-11 19:07] LABS: Hemoglobin 12.5 g/dL (14.0-18.0); Platelet Count 246 thou/uL (130-400)
[2017-12-11 19:20] LABS: INR-International Normal Ratio 2.2; PTT 36.6 SEC (22.9-36.1); Prothrombin Time 25.4 SEC (12.0-14.7)
[2017-12-12 05:36] LABS: INR-International Normal Ratio 2.2; Prothrombin Time 25.6 SEC (12.0-14.7)
[2017-12-12] MEDS: Levothyroxine Sodium 100 MCG TAB PO SCH (06:04)
[2017-12-12 06:11] LABS: Chloride 108 mmol/L (98-107); Potassium 3.6 mmol/L (3.5-5.1); Sodium 143 mmol/L (136-145)
[2017-12-12 06:12] LABS: Calcium 8.8 mg/dL (7.8-10.44); Glucose 82 mg/dL (83-110)
[2017-12-12 06:13] LABS: Carbon Dioxide 26 mmol/L (23-31)
[2017-12-12 06:14] LABS: Anion Gap 13 mmol/L (10-20)
[2017-12-12 06:15] LABS: Calc. Creatinine Clearance 104 mL/min (70-130); Estimated GFR-MDRD Greater than 90
[2017-12-12 06:16] LABS: BUN (Urea Nitrogen) 20 mg/dL (8.4-25.7)
[2017-12-12] MEDS ORDERED: Amlodipine 5 MG TAB PO SCH (09:00)
[2017-12-12] MEDS: Aspirin 325 MG TAB PO SCH (10:05)
[2017-12-12] MEDS: Dutasteride 0.5 MG CAP PO SCH (10:05)
[2017-12-12] MEDS: Spironolactone 25 MG TAB PO SCH (10:05)
[2017-12-12] MEDS: Lisinopril 20 MG TAB PO SCH (10:05)
[2017-12-12] MEDS: Tamsulosin HCl 0.4 MG CAP PO SCH (10:05)
[2017-12-12] MEDS: Metoprolol Tartrate 100 MG TAB PO SCH (10:06)
[2017-12-12] MEDS: Furosemide 40 MG TAB PO SCH (10:06)
[2017-12-12] MEDS: Atorvastatin Calcium 40 MG TAB PO SCH (10:06)
[2017-12-12] MEDS: Insulin NPH/Reg Insulin Hm 300 UNITS/3 ML VIAL SC SCH (10:07)
[2017-12-12] MEDS ORDERED: Furosemide 40 MG TAB PO SCH ×2 (14:00→21:00)
[2017-12-12] MEDS ORDERED: Furosemide 80 MG TAB PO SCH (14:00)
--- NOTE | 2017-12-12 15:47 | EKG ---
Test Reason : SOB Blood Pressure : / mmHG Vent. Rate : 070 BPM Atrial Rate : 019 BPM P-R Int : 000 ms QRS Dur : 084 ms QT Int : 424 ms P-R-T Axes : 000 -40 028 degrees QTc Int : 457 ms Electronic atrial pacemaker Left axis deviation Nonspecific ST abnormality Abnormal ECG Confirmed by MICHEAL Grossman, NICK ([id number]), rewrite editor JOHANNA STANFORD ([id number]) on 12/12/2017 3:46:27 PM Referred By: MICHEAL Confirmed By:NICK BURTON M.D.
[2017-12-12 15:51] VITALS: BP 113/58; TEMP 98.3
[2017-12-12] MEDS ORDERED: Lisinopril 20 MG TAB PO SCH (21:00)
[2017-12-13] MEDS ORDERED: Furosemide 80 MG TAB PO SCH (09:00)
[2017-12-13] MEDS ORDERED: Aspirin 81 mg Enteric Coated Tablet PO SCH (09:00)
--- NOTE | 2017-12-13 09:29 | DIS ---
DATE OF DISCHARGE: 12/12/2017 DISCHARGE DISPOSITION: Home. FOLLOWUP: 1. Follow up with primary care physician, Dr. Israel Mendes in 1 week. 2. Follow up with Dr. Gio Moreau in 2 weeks. 3. Outpatient cardiac rehab and heart failure clinic/Coumadin Clinic followup. The patient was seen and examined on the day of discharge. Denies any new complaints, no chest pain, shortness of breath, palpitations. DISCHARGE MEDICATIONS: 1. Lisinopril 20 mg b.i.d. 2. Metoprolol tartrate 100 mg b.i.d. 3. Amlodipine 5 mg daily. Other home medications were resumed including: Aspirin 81 mg daily, Lipitor 20 mg daily, finasteride 5 mg daily, Lasix 80 mg daily, Humulin 70/30 45 units b.i.d., Imdur ER 60 mg daily, levothyroxine 10 0 mcg daily, potassium chloride 20 mEq daily, Janumet b.i.d., Flomax 0.4 mg daily, and Coumad in as directed. INPATIENT IMPORT COORDINATION AND PRODUCTION HEAD: Cardiology, Dr. Gio Moreau. DIAGNOSTIC TESTS: 1. CBC showed WBC 8.5 with hemoglobin 12.2. 2. INR on the day of discharge is 2.2. 3. ABGs on admission showed pH 7.34 with pCO2 of 49, pO2 of 64.9 with O2 saturation of 92% on 28% Fi O2. 4. BNP was 166. Troponins were negative. TSH was 1.38. Creatinine was 0.76. Lowest potassium was 3.0, at discharge 3.6. 5. Blood cultures were negative. 6. Echocardiogram showed left ventricular ejection fraction 55%-60% with mild concentric left ventri cular hypertrophy. 7. CT angiogram of the chest was negative for pulmonary embolism. It showed bilateral pleural effus ion, right greater than the left. BRIEF HOSPITAL COURSE: Patient is an 82-year-old male with hypertension, hyperlipidemia, chronic satya stolic heart failure who presented to the emergency room with shortness of breath. Please refer to t he history and physical dated 12/07/2017 for further details. The patient was admitted to the hospital with a diagnosis of acute hypoxic respiratory failure second dee to acute on chronic diastolic heart failure exacerbation. He showed good improvement with diuret ics. His weight on the day of discharge is 186 pounds compared to 202 pounds on admission. His home medications have been optimized by Cardiology. He has been cleared by Cardiology for discharge. FINAL DIAGNOSES: 1. Acute hypoxic respiratory failure secondary to acute on chronic diastolic heart failure. 2. Paroxysmal atrial fibrillation on anticoagulation. 3. Hypertension. 4. History of sick sinus syndrome, status post pacemaker placement. 5. Bilateral pleural effusion. 6. Coronary artery disease, status post coronary artery bypass graft x3. 7. Hyperlipidemia. 8. Diabetes mellitus type 2. 9. Obstructive sleep apnea. 10. Obesity with a body mass index of 36.5. 11. Former smoker. Plan of care was discussed with the patient and the family in detail. They stated understanding.
== END 2017-12-12 16:50 | disposition home or self-care (01) | DRG 291 ==
LOC: ERS 08:13 → ERHOLD 10:56 → 2NO 16:35
PROVIDERS: ADMIT Family Medicine; ATTEND Family Medicine
PROC: 5A09357 Assistance with Respiratory Ventilation, Less than 24 Consecutive Hours, Continuous Positive Airway Pressure (ICD-10-PCS; principal; 2017-12-08)
DX: I11.0 Hypertensive heart disease with heart failure (principal); J96.01 Acute respiratory failure with hypoxia; I50.33 Acute on chronic diastolic (congestive) heart failure; E11.9 Type 2 diabetes mellitus without complications; I48.0 Paroxysmal atrial fibrillation; E78.5 Hyperlipidemia, unspecified; I25.10 Atherosclerotic heart disease of native coronary artery without angina pectoris; G47.33 Obstructive sleep apnea (adult) (pediatric); J44.9 Chronic obstructive pulmonary disease, unspecified; E87.6 Hypokalemia; E66.01 Morbid (severe) obesity due to excess calories; Z68.36 Body mass index [BMI] 36.0-36.9, adult; T50.1X5A Adverse effect of loop [high-ceiling] diuretics, initial encounter; Z87.891 Personal history of nicotine dependence; Z79.01 Long term (current) use of anticoagulants; Z79.82 Long term (current) use of aspirin; Z79.4 Long term (current) use of insulin; Z79.899 Other long term (current) drug therapy; Z95.1 Presence of aortocoronary bypass graft; Z95.0 Presence of cardiac pacemaker; Y92.239 Unspecified place in hospital as the place of occurrence of the external cause
CPT/HCPCS: 36415; 36416; 71045; 71275; 80048; 80053; 80061; 82553; 82805; 83690; 83735; 83880; 84443; 84484; 85014; 85018; 85025; 85049; 85610; 85730; 87040; 93005; 93306; 93798; 94660; 94760; G8978-GP-CH; G8979-GP-CH; G8980-GP-CH; G8987-GO-CI; G8988-GO-CI; G8989-GO-CI; J1940

== ENCOUNTER 2018-01-24 06:01 | Inpatient (IN) | payer MEDICARE ==
[2018-01-24 06:24] LABS: #Basophils 0.1 thou/uL (0.0-0.2); #Eosinphils 0.3 thou/uL (0.0-0.7); #Lymphocytes 1.5 thou/uL (1.20-3.40); #Monocytes 0.6 thou/uL (0.11-0.59); #Neutrophils 5.4 thou/uL (1.40-6.50); %Basophils 0.8 % (0.0-1.0); %Eosinophils 3.5 % (0.0-10.0); %Lymphocytes 19.2 % (21.0-51.0); %Monocytes 7.7 % (0.0-10.0); %Neutrophils 68.9 % (42.0-75.0); Hemoglobin 9.7 g/dL (14.0-18.0); Mean Corpuscular Hemoglobin 29.4 pg (27.0-31.0); Mean Corpuscular Volume 86.6 fl (80.0-94.0); Mean Platelet Volume 7.3 fL (7.4-10.4); Platelet Count 240 thou/uL (130-400); RBC Distribution Width 15.3 % (11.5-14.5); Red Blood Cell (RBC) Count 3.31 mill/uL (4.70-6.10); White Blood Cell (WBC) Count 7.9 thou/uL (4.8-10.8)
[2018-01-24 06:33] LABS: PTT 85.8 SEC (22.9-36.1); Prothrombin Time 84.1 SEC (12.0-14.7)
[2018-01-24 06:43] LABS: INR-International Normal Ratio 9.7
[2018-01-24 06:48] LABS: ALT (SGPT) 11 U/L (8-55); AST (SGOT) 16 U/L (5-34); Albumin 3.5 g/dL (3.4-4.8); Alkaline Phosphatase 65 U/L (40-150); Anion Gap 9 mmol/L (10-20); BUN (Urea Nitrogen) 21 mg/dL (8.4-25.7); Bilirubin, Total 0.7 mg/dL (0.2-1.2); Calc. Creatinine Clearance 0 mL/min (70-130); Calcium 8.4 mg/dL (7.8-10.44); Carbon Dioxide 28 mmol/L (23-31); Chloride 111 mmol/L (98-107); Estimated GFR-MDRD Greater than 90; Globulin 3.4 g/dL (2.4-3.5); Glucose 87 mg/dL (83-110); Potassium 3.3 mmol/L (3.5-5.1); Protein, Total 6.9 g/dL (5.8-8.1); Sodium 145 mmol/L (136-145)
[2018-01-24] MEDS ORDERED: Phytonadione 10 MG in Sodium Chloride 0.9% 50 ML IVPB SCH (07:45)
[2018-01-24] MEDS ORDERED: Potassium Chloride 20 MEQ TAB ONE ×2 (07:56→07:57)
[2018-01-24] MEDS ORDERED: Acetaminophen 325 MG TAB PO PRN (10:12)
[2018-01-24] MEDS ORDERED: HYDROcodone/Acetaminophen 5/325 mg Tablet PO PRN (10:12)
[2018-01-24] MEDS ORDERED: Ondansetron HCl/PF 4 MG/2 ML Vial IVP PRN (10:29)
[2018-01-24] MEDS ORDERED: Ondansetron ODT 4 MG TAB PO PRN (10:29)
[2018-01-24 13:29] LABS: Hemoglobin 9.3 g/dL (14.0-18.0)
--- NOTE | 2018-01-24 14:34 | HP ---
DATE OF ADMISSION: 01/24/2018 CHIEF COMPLAINT: Blood in the stool. HISTORY OF PRESENT ILLNESS: This is an 82-year-old, morbidly obese, male who came in with a complaint that he saw a cup full of blood mixed in the stool this morning at around 4:00 a.m. The p atient was feeling dizzy whole night and the following morning around 4:00 a.m., he felt he had a bow el movement and noticed some blood in the stool. He was also noticing some bruising in his lower ext remities as he is walking, he is feeling pain in his lower extremities. The patient came to the ER a nd was noted to have an INR of 9.0. The patient was on Coumadin for chronic atrial fibrillation. He has been closely managed by his Coumadin clinic. On Tuesday, his INR was checked and it was 8.0 and advised the patient to hold Coumadin on Tuesday and Tuesday, but as the patient saw the blood in the s tool, he decided to come to the ER. When patient came to the ER, he was alert and oriented. He did not appear to be in any distress. No dizziness or no headache was noted. No diarrhea or no constipa tion except for blood in the stool. No abdominal pain. He does have some bruising in the lower extr emities and pain on walking. The patient was in the hospital recently for elevated blood pressures. He follows with Cardiology, Dr. Moreau, who has seen him 3 weeks ago as a regular followup visit. The patient has a history of CABG and also a history of atrial fibrillation. PAST MEDICAL HISTORY: 1. Hypertension. 2. Hyperlipidemia. 3. Coronary artery disease with coronary artery bypass grafting. 4. Type 2 diabetes mellitus. 5. History of atrial fibrillation, on Coumadin. 6. Hypothyroidism. 7. Obstructive sleep apnea. 8. Morbid obesity. PAST SURGICAL HISTORY: Right ankle surgery in 2009, CABG in 2007, triple bypass, herniated disk surg virid[place] in 1983. SOCIAL HISTORY: The patient is a former smoker, quit smoking 4 years ago. Lives with his family. ALLERGIES: PENICILLIN. FAMILY HISTORY: No significant family history of coronary artery disease or any premature deaths or cancers in the family. HOME MEDICATIONS: 1. Aspirin 81 mg daily. 2. Atorvastatin 40 mg p.o. daily. 3. Docusate 100 mg p.o. daily. 4. Avodart 0.5 mg p.o. daily. 5. Lasix 80 mg p.o. daily. 6. Hydrocodone 1 tablet p.o. q.4 hours p.r.n. 7. Isosorbide mononitrate. 8. Metoprolol 50 mg p.o. b.i.d. 9. Sitagliptin 1 tablet p.o. b.i.d. 10. Tamsulosin 0.4 mg p.o. daily. 11. Warfarin 2 mg p.o. as directed. REVIEW OF SYSTEMS: All 12 systems are reviewed with the patient thoroughly and found to be negative at this time. Systems reviewed are HEENT, CVS, AUTO BODY TECHNICIAN, respiratory, GI, , musculoskeletal, skin and i ntegument, psychiatric. Constitutional: Weight loss or gain, sense of well-being, ability to conduct usual activities, exerc ise tolerance. Skin/Breast: Rash, itching, changes in hair growth or loss, nail changes, breast lumps, tenderness, swelling, nipple discharge. Eyes: Vision, double vision, tearing, blind spots, pain. ENT/Mouth: Headaches (location, time of onset, duration, precipitating factors), vertigo, lightheadedness, injury. Vision, double vision, tearing, blind spots, pain, nose b leeding, colds, obstruction, discharge, dental difficulties, gingival bleeding, dentures, neck stiffn ess, pain, tenderness, masses in thyroid or other areas Cardiovascular: Precordial pain, substernal distress, palpitations, syncope, dyspnea on exertion, or thopnea, nocturnal paroxysmal dyspnea, edema, cyanosis, hypertension, heart murmurs, varicosities, ph lebitis, claudication. Respiratory: Pain, shortness of breath, wheezing, stridor, cough, hemoptysis, fever or night sweats Gastrointestinal: Poor appetite, dysphagia, indigestion, abdominal pain, heartburn, eructation, naus ea, vomiting, hematemesis, jaundice, constipation, or diarrhea, abnormal stools (lakia-colored, tarry, bloody, greasy, foul smelling), flatulence, hemorrhoids, recent changes in bowel habits. Genitourinary: Urgency, frequency, dysuria, nocturia, hematuria, polyuria, oliguria, unusual (or mahi nge in) color of urine, stones, hesitancy, change in size of stream, dribbling, acute retention or in continence, libido, potency. Musculoskeletal: Pain, swelling, redness or heat of muscles or joints, limitation, of motion, muscular weakness, atrophy, cramps. Neurologic/Psychiatric: Convulsions, paralyses, tremor, incoordination, parasthesias, difficulties w ith memory of speech, sensory or motor disturbances, or muscular coordination (ataxia, tremor), emoti onal problems, anxiety, depression, previous psychiatric care, unusual perceptions, hallucinations. Allergy/Immunologic: Skin rash, anemia, bleeding tendency, polydipsia, polyuria, intolerance to heat or cold. PHYSICAL EXAMINATION: VITAL SIGNS: Blood pressure is 174/75, heart rate is 67, respiration is 18, saturation 93% on room a ir. GENERAL: The patient is seen lying in the bed supine, does not appear to be in acute distress. He i s alert and oriented. The patient is morbidly obese. HEENT: Atraumatic, normocephalic. PERRLA. Extraocular muscles were intact. Oral mucosa is pink an d moist. CARDIOVASCULAR: S1, S2 normal with irregularly irregular rhythm. NECK: No JVD was noted. LUNGS: Bilateral air entry was equal. No wheezing, no crackles. ABDOMEN: Soft, nontender. No guarding, no rebound tenderness. Bowel sounds normal. MUSCULOSKELETAL: No calf tenderness. No pedal edema. No joint tenderness, but has bruising noted o n the dorsum of the bilateral lower foot, which is more deep. Bruising was noted likely a hematoma f rom the high INR. SKIN: As described above, bruising was noted in the lower extremities. No jaundice, no pallor was n oted. PSYCHIATRIC: No signs of suicidal ideation. No signs of maury was noted. LYMPHADENOPATHY: No evidence of any generalized lymph nodes or any cervical or axillary lymph nodes were noted. LABORATORY DATA: WBC 7.1, hemoglobin is 9.7, hematocrit is 28.7, platelets are 240. INR is 9.7. So dium 145, potassium 3.3, chloride 111, bicarbonate 28, BUN is 21, creatinine is 0.69. ASSESSMENT: 1. Acute lower gastrointestinal bleed. 2. Supratherapeutic INR. 3. Chronic atrial fibrillation. 4. Coronary artery disease with coronary artery bypass graft. 5. Hypertension. 6. Hyperlipidemia. 7. Type 2 diabetes mellitus. 8. Morbid obesity. PLAN: 1. The plan is to closely monitor this patient at this time. The patient rhythm looks more regular. I will do an EKG at this time and will monitor closely monitor. The patient most likely has bleedi ng from the Coumadin toxicity. We will closely monitor for any further bleeds. We will repeat hemog lobin later in the afternoon. 2. The patient has supratherapeutic INR of 9.7. He already got 10 units of vitamin K and 1 unit of FFP in the ER. We will repeat the INR at 1400 to look for any improvement. The patient is also requ esting to see Dr. Prieto Powers to see if the patient needs to be continued on the Coumadin. 3. The patient has a history of congestive heart failure. No evidence of any exacerbation is noted. We will continue to monitor at this time and continue the patient's Lasix. 4. The patient has coronary artery disease. We will hold the patient's aspirin because of the high bleeding risk and continue on the beta blockers and statins. 5. Hypertension is well controlled. We will continue the patient's home medications. Goal blood pr essure is less than 135/85. 6. Deep venous thrombosis prophylaxis, SCDs. I spent 75 minutes with this patient.
[2018-01-24 14:51] LABS: INR-International Normal Ratio 1.9
[2018-01-24 16:00] VITALS: BMI 42.3
[2018-01-24] MEDS: metFORMIN 500 MG TAB PO SCH (17:31)
[2018-01-24] MEDS: Insulin NPH/Reg Insulin Hm 300 UNITS/3 ML VIAL SC SCH (17:31)
[2018-01-24] MEDS: Metoprolol Tartrate 50 MG TAB PO SCH (21:08)
[2018-01-24] MEDS: Docusate 100 MG CAP PO SCH (21:08)
[2018-01-24] MEDS: Pantoprazole 40 MG VIAL IVP SCH (21:08)
[2018-01-24] MEDS: Lisinopril 20 MG TAB PO SCH (21:08)
[2018-01-25] MEDS: Amlodipine 5 MG TAB PO SCH (04:45)
[2018-01-25] MEDS: Lisinopril 20 MG TAB PO SCH ×2 (04:45→21:08)
[2018-01-25] MEDS: Levothyroxine Sodium 100 MCG TAB PO SCH (04:45)
[2018-01-25 04:48] LABS: #Basophils 0.1 thou/uL (0.0-0.2); #Eosinphils 0.1 thou/uL (0.0-0.7); #Lymphocytes 0.9 thou/uL (1.20-3.40); #Monocytes 0.5 thou/uL (0.11-0.59); #Neutrophils 8.7 thou/uL (1.40-6.50); %Basophils 0.8 % (0.0-1.0); %Eosinophils 0.8 % (0.0-10.0); %Lymphocytes 8.9 % (21.0-51.0); %Monocytes 4.4 % (0.0-10.0); %Neutrophils 85.1 % (42.0-75.0); Hemoglobin 9.4 g/dL (14.0-18.0); Mean Corpuscular HGB CONC 32.9 g/dL (32.0-36.0); Mean Corpuscular Hemoglobin 28.7 pg (27.0-31.0); Mean Corpuscular Volume 87.3 fl (80.0-94.0); Mean Platelet Volume 7.9 fL (7.4-10.4); Platelet Count 242 thou/uL (130-400); RBC Distribution Width 15.3 % (11.5-14.5); Red Blood Cell (RBC) Count 3.26 mill/uL (4.70-6.10); White Blood Cell (WBC) Count 10.2 thou/uL (4.8-10.8)
[2018-01-25 05:04] LABS: Anion Gap 8 mmol/L (10-20); BUN (Urea Nitrogen) 12 mg/dL (8.4-25.7); Calc. Creatinine Clearance 146 mL/min (70-130); Calcium 8.2 mg/dL (7.8-10.44); Carbon Dioxide 29 mmol/L (23-31); Chloride 108 mmol/L (98-107); Estimated GFR-MDRD Greater than 90; Glucose 62 mg/dL (83-110); Potassium 3.2 mmol/L (3.5-5.1); Sodium 142 mmol/L (136-145)
[2018-01-25] MEDS: Potassium Chloride 20 MEQ TAB PO SCH (08:35)
[2018-01-25] MEDS: Tamsulosin HCl 0.4 MG CAP PO SCH (08:36)
[2018-01-25] MEDS: Alogliptin 6.25 MG TAB PO SCH ×2 (08:36→17:07)
[2018-01-25] MEDS: metFORMIN 500 MG TAB PO SCH ×2 (08:36→17:07)
[2018-01-25] MEDS: Metoprolol Tartrate 50 MG TAB PO SCH ×2 (08:37→21:08)
[2018-01-25] MEDS: Finasteride 5 MG TAB PO SCH (08:37)
[2018-01-25] MEDS: Furosemide 80 MG TAB PO SCH (08:37)
[2018-01-25] MEDS: Docusate 100 MG CAP PO SCH ×2 (08:37→21:09)
[2018-01-25] MEDS: Atorvastatin Calcium 20 MG TAB PO SCH (08:37)
[2018-01-25] MEDS: Pantoprazole 40 MG VIAL IVP SCH ×2 (08:39→21:12)
[2018-01-25] MEDS: Insulin NPH/Reg Insulin Hm 300 UNITS/3 ML VIAL SC SCH ×2 (08:39→17:08)
--- NOTE | 2018-01-25 12:57 | PDOC.PN ---
- Subjective Encounter Start Date: 01/25/18 Encounter Start Time: 11:00 Subjective: had 2 episode of blood mixed stool this am -: no abd pain or nausea -: at bedside - Objective Resuscitation Status: Resuscitation Status FULL:Full Resuscitation MAR Reviewed: Yes Vital Signs & Weight: Vital Signs (12 hours) Temp Pulse Resp BP BP Pulse Ox 01/25/18 11:00 97.7 F 61 18 158/82 H 98 01/25/18 08:56 97.8 F 60 18 97 01/25/18 08:55 97.8 F 60 18 179/70 H 97 01/25/18 07:35 97.6 F 59 L 16 169/67 H 98 01/25/18 04:45 62 186/72 H 01/25/18 04:30 62 22 H 186/72 H 98 01/25/18 01:10 60 20 164/65 H 94 L I&O: 01/24/18 01/25/18 01/26/18 06:59 06:59 06:59 Intake Total 500 Balance 500 Result Diagrams: 01/25/18 03:51 01/25/18 03:51 Additional Labs: Accuchecks 01/25/18 01/25/18 01/24/18 11:27 04:18 20:57 POC Glucose 193 H 96 92 01/24/18 01/24/18 16:40 12:52 POC Glucose 128 H 76 Phys Exam - Physical Examination HEENT: PERRLA, moist MMs Neck: no JVD, supple Respiratory: no wheezing, no rales Cardiovascular: RRR, no significant murmur Gastrointestinal: soft, non-tender, positive bowel sounds Musculoskeletal: no edema, pulses present Neurological: non-focal, moves all 4 limbs Psychiatric: normal affect, A&O x 3 Dx/Plan (1) Warfarin-induced coagulopathy Code(s): D68.32 - HEMORRHAGIC DISORD D/T EXTRINSIC CIRCULATING ANTICOAGULANTS; T45.515A - ADVERSE EFFECT OF ANTICOAGULANTS, INITIAL ENCOUNTER Status: Acute (2) GI bleed Code(s): K92.2 - GASTROINTESTINAL HEMORRHAGE, UNSPECIFIED Status: Acute Qualifiers: GI bleed type/associated pathology: unspecified gastrointestinal hemorrhage type Qualified Code(s): K92.2 - Gastrointestinal hemorrhage, unspecified (3) HTN (hypertension) Code(s): I10 - ESSENTIAL (PRIMARY) HYPERTENSION Status: Chronic Qualifiers: Hypertension type: essential hypertension Qualified Code(s): I10 - Essential (primary) hypertension (4) Obesity Code(s): E66.9 - OBESITY, UNSPECIFIED Status: Chronic Qualifiers: Obesity classification: adult class 3 (BMI >= 40) Body mass index: BMI 40.0 -44.9 (5) CAD (coronary artery disease) Code(s): I25.10 - ATHSCL HEART DISEASE OF [place] CORONARY ARTERY W/O ANG PCTRS Status: Chronic Qualifiers: Coronary Disease-Associated Artery/Lesion type: bypass graft [place] vs. transplanted heart: [place] heart Associated angina: without angina Qualified Code(s): I25.810 - Atherosclerosis of coronary artery bypass graft(s) without angina pectoris (6) Hypothyroidism Code(s): E03.9 - HYPOTHYROIDISM, UNSPECIFIED Status: Chronic Qualifiers: Hypothyroidism type: unspecified Qualified Code(s): E03.9 - Hypothyroidism , unspecified (7) Chronic anemia Code(s): D64.9 - ANEMIA, UNSPECIFIED Status: Chronic (8) Chronic obstructive lung disease Code(s): J44.9 - CHRONIC OBSTRUCTIVE PULMONARY DISEASE, UNSPECIFIED Status: Chronic (9) Atrial fibrillation Code(s): I48.91 - UNSPECIFIED ATRIAL FIBRILLATION Status: Chronic (10) Diabetes mellitus Code(s): E11.9 - TYPE 2 DIABETES MELLITUS WITHOUT COMPLICATIONS Status: Chronic - Plan inr is 1.9 today from 9.7 on admission -: gi bleed sec to coagulopathy and closely watch his h/h -: GI consultation if h/h or vitals get unstable -: d/w and pt at bedside -: on lasix, avodart, flomax, lisinopril, proscar, imdur,metformin and aloglip * . inr and cbc in am, replace electrolytes. Review of Systems - Medications/Allergies Allergies/Adverse Reactions: Allergies Allergy/AdvReac Type Severity Reaction Status Date / Time Penicillins Allergy Verified 12/07/17 16:58 Medications: Current Medications Acetaminophen (Tylenol) 650 mg PO Q4H PRN PRN Reason: Headache/Fever or Pain Hydrocodone Bitart/Acetaminophen ([place] 5/325) 1 tab PO Q4H PRN PRN Reason: Moderate Pain (4-6) Alogliptin Benzoate (Alogliptin) 12.5 mg PO BID-[facility] Last Admin: 01/25/18 08:36 Dose: 12.5 mg Amlodipine Besylate (Norvasc) 5 mg PO DAILY [facility] Last Admin: 01/25/18 04:45 Dose: 5 mg Atorvastatin Calcium (Lipitor) 20 mg PO DAILY [facility] [place] Last Admin: 01/25/18 08:37 Dose: 20 mg Docusate Sodium (Colace) 100 mg PO BID [facility] [place] Last Admin: 01/25/18 08:37 Dose: Not Given Finasteride (Proscar) 5 mg PO DAILY [facility] Last Admin: 01/25/18 08:37 Dose: 5 mg Furosemide (Lasix) 80 mg PO DAILY [facility] Last Admin: 01/25/18 08:37 Dose: 80 mg Insulin Human Isoph/Insulin Regular ([facility] 70/30) [facility] Last Admin: 01/25/18 08:39 Dose: Not Given Isosorbide Mononitrate (Imdur) 60 mg PO DAILY [facility] Last Admin: 01/25/18 08:38 Dose: 60 mg Levothyroxine Sodium (Synthroid) 100 mcg PO 0600 [facility] Last Admin: 01/25/18 04:45 Dose: 100 mcg Lisinopril (Zestril) 20 mg PO BID [facility] Last Admin: 01/25/18 04:45 Dose: 20 mg Metformin HCl (Glucophage) 1,000 mg PO BID-[facility] Last Admin: 01/25/18 08:36 Dose: 1,000 mg Metoprolol Tartrate (Lopressor) 75 mg PO BID [facility] Last Admin: 01/25/18 08:37 Dose: 75 mg Pantoprazole Sodium (Protonix) 40 mg IVP Q12HR [facility] Last Admin: 01/25/18 08:39 Dose: 40 mg Potassium Chloride (K-Dur) 20 meq PO QAM-[facility] Last Admin: 01/25/18 08:35 Dose: 20 meq Sodium Chloride (Flush - Normal Saline) 10 ml IVF Q12HR [facility] [place] Last Admin: 01/25/18 08:39 Dose: 10 ml Sodium Chloride (Flush - Normal Saline) 10 ml IVF PRN PRN PRN Reason: Saline Flush Tamsulosin HCl (Flomax) 0.4 mg PO DAILY [facility] [place] Last Admin: 01/25/18 08:36 Dose: 0.4 mg
[2018-01-26 04:55] LABS: #Eosinphils 0.4 thou/uL (0.0-0.7); #Lymphocytes 1.6 thou/uL (1.20-3.40); #Monocytes 0.7 thou/uL (0.11-0.59); #Neutrophils 7.8 thou/uL (1.40-6.50); %Basophils 0.3 % (0.0-1.0); %Eosinophils 3.9 % (0.0-10.0); %Lymphocytes 15.1 % (21.0-51.0); %Monocytes 6.8 % (0.0-10.0); %Neutrophils 73.9 % (42.0-75.0); Hemoglobin 8.5 g/dL (14.0-18.0); Mean Corpuscular HGB CONC 33.6 g/dL (32.0-36.0); Mean Corpuscular Hemoglobin 29.1 pg (27.0-31.0); Mean Corpuscular Volume 86.6 fl (80.0-94.0); Mean Platelet Volume 7.8 fL (7.4-10.4); Platelet Count 274 thou/uL (130-400); RBC Distribution Width 15.5 % (11.5-14.5); Red Blood Cell (RBC) Count 2.92 mill/uL (4.70-6.10); White Blood Cell (WBC) Count 10.5 thou/uL (4.8-10.8)
[2018-01-26] MEDS: Levothyroxine Sodium 100 MCG TAB PO SCH (05:50)
[2018-01-26] MEDS: Alogliptin 6.25 MG TAB PO SCH ×2 (08:00→17:00)
[2018-01-26] MEDS: metFORMIN 500 MG TAB PO SCH ×2 (08:00→17:00)
[2018-01-26] MEDS: Potassium Chloride 20 MEQ TAB PO SCH (08:00)
[2018-01-26] MEDS: Insulin NPH/Reg Insulin Hm 300 UNITS/3 ML VIAL SC SCH ×2 (08:00→16:53)
[2018-01-26 08:20] LABS: INR-International Normal Ratio 1.4; PTT 30.8 SEC (22.9-36.1); Prothrombin Time 17.1 SEC (12.0-14.7)
[2018-01-26] MEDS: Finasteride 5 MG TAB PO SCH (09:12)
[2018-01-26] MEDS: Metoprolol Tartrate 50 MG TAB PO SCH ×2 (09:13→20:41)
[2018-01-26] MEDS: Tamsulosin HCl 0.4 MG CAP PO SCH (09:13)
[2018-01-26] MEDS: Docusate 100 MG CAP PO SCH ×2 (09:13→20:41)
[2018-01-26] MEDS: Lisinopril 20 MG TAB PO SCH ×2 (09:14→20:41)
[2018-01-26] MEDS: Atorvastatin Calcium 20 MG TAB PO SCH (09:14)
[2018-01-26] MEDS: Amlodipine 5 MG TAB PO SCH (09:14)
[2018-01-26] MEDS: Pantoprazole 40 MG VIAL IVP SCH ×2 (09:15→20:41)
[2018-01-26] MEDS: Furosemide 80 MG TAB PO SCH (09:16)
--- NOTE | 2018-01-26 12:16 | PDOC.PN ---
- Subjective Encounter Start Date: 01/26/18 Encounter Start Time: 11:00 Subjective: no further bleeding per rectum (no bm from yesterday) -: no nausea/abd pain, is sitting in chair -: is tolerating oral diet - Objective Resuscitation Status: Resuscitation Status FULL:Full Resuscitation MAR Reviewed: Yes Vital Signs & Weight: Vital Signs (12 hours) Temp Pulse Resp BP BP Pulse Ox 01/26/18 11:43 97.5 F L 63 16 120/68 99 01/26/18 09:14 81 151/69 H 01/26/18 07:19 98 F 81 16 01/26/18 07:12 98 F 81 16 151/69 H 95 01/26/18 04:19 97.8 F 67 20 138/66 96 01/26/18 01:19 97.3 F L 60 20 124/69 96 I&O: 01/25/18 01/26/18 01/27/18 06:59 06:59 06:59 Intake Total 500 2220 Balance 500 2220 Result Diagrams: 01/26/18 03:58 01/25/18 03:51 Additional Labs: Accuchecks 01/26/18 01/25/18 01/25/18 04:57 21:09 16:39 POC Glucose 107 87 286 H Phys Exam - Physical Examination HEENT: PERRLA, moist MMs Neck: no JVD, supple Respiratory: no wheezing, no rales Cardiovascular: RRR, no significant murmur Gastrointestinal: soft, non-tender, positive bowel sounds Musculoskeletal: no edema, pulses present Neurological: non-focal, moves all 4 limbs Psychiatric: normal affect, A&O x 3 Dx/Plan (1) Warfarin-induced coagulopathy Code(s): D68.32 - HEMORRHAGIC DISORD D/T EXTRINSIC CIRCULATING ANTICOAGULANTS; T45.515A - ADVERSE EFFECT OF ANTICOAGULANTS, INITIAL ENCOUNTER Status: Acute (2) GI bleed Code(s): K92.2 - GASTROINTESTINAL HEMORRHAGE, UNSPECIFIED Status: Acute Qualifiers: GI bleed type/associated pathology: unspecified gastrointestinal hemorrhage type Qualified Code(s): K92.2 - Gastrointestinal hemorrhage, unspecified (3) HTN (hypertension) Code(s): I10 - ESSENTIAL (PRIMARY) HYPERTENSION Status: Chronic Qualifiers: Hypertension type: essential hypertension Qualified Code(s): I10 - Essential (primary) hypertension (4) Obesity Code(s): E66.9 - OBESITY, UNSPECIFIED Status: Chronic Qualifiers: Obesity classification: adult class 3 (BMI >= 40) Body mass index: BMI 40.0 -44.9 (5) CAD (coronary artery disease) Code(s): I25.10 - ATHSCL HEART DISEASE OF [place] CORONARY ARTERY W/O ANG PCTRS Status: Chronic Qualifiers: Coronary Disease-Associated Artery/Lesion type: bypass graft [place] vs. transplanted heart: [place] heart Associated angina: without angina Qualified Code(s): I25.810 - Atherosclerosis of coronary artery bypass graft(s) without angina pectoris (6) Hypothyroidism Code(s): E03.9 - HYPOTHYROIDISM, UNSPECIFIED Status: Chronic Qualifiers: Hypothyroidism type: unspecified Qualified Code(s): E03.9 - Hypothyroidism , unspecified (7) Chronic anemia Code(s): D64.9 - ANEMIA, UNSPECIFIED Status: Chronic (8) Chronic obstructive lung disease Code(s): J44.9 - CHRONIC OBSTRUCTIVE PULMONARY DISEASE, UNSPECIFIED Status: Chronic (9) Atrial fibrillation Code(s): I48.91 - UNSPECIFIED ATRIAL FIBRILLATION Status: Chronic (10) Diabetes mellitus Code(s): E11.9 - TYPE 2 DIABETES MELLITUS WITHOUT COMPLICATIONS Status: Chronic - Plan progressive drop in Hb to 8.5g this am, was 12 g in december -: will get GI consult as pt requires coumadin for afib later on -: d/w pt in person and again over phone about current plan -: inr is 1.4 this am (was 8 on admission) -: to amb as tolerated * . Review of Systems - Medications/Allergies Allergies/Adverse Reactions: Allergies Allergy/AdvReac Type Severity Reaction Status Date / Time Penicillins Allergy Verified 12/07/17 16:58 Medications: Current Medications Acetaminophen (Tylenol) 650 mg PO Q4H PRN PRN Reason: Headache/Fever or Pain Hydrocodone Bitart/Acetaminophen ([place] 5/325) 1 tab PO Q4H PRN PRN Reason: Moderate Pain (4-6) Last Admin: 01/25/18 14:52 Dose: 1 tab Alogliptin Benzoate (Alogliptin) 12.5 mg PO BID-[facility] Last Admin: 01/26/18 08:00 Dose: 12.5 mg Amlodipine Besylate (Norvasc) 5 mg PO DAILY [facility] Last Admin: 01/26/18 09:14 Dose: 5 mg Atorvastatin Calcium (Lipitor) 20 mg PO DAILY [facility] Last Admin: 01/26/18 09:14 Dose: 20 mg Docusate Sodium (Colace) 100 mg PO BID [facility] Last Admin: 01/26/18 09:13 Dose: 100 mg Finasteride (Proscar) 5 mg PO DAILY [facility] Last Admin: 01/26/18 09:12 Dose: 5 mg Furosemide (Lasix) 80 mg PO DAILY [facility] Last Admin: 01/26/18 09:16 Dose: 80 mg Insulin Human Isoph/Insulin Regular (Humulin 70/30) 44 units SC BID-[facility] Last Admin: 01/26/18 08:00 Dose: 44 unit Isosorbide Mononitrate (Imdur) 60 mg PO DAILY [facility] Last Admin: 01/26/18 09:14 Dose: 60 mg Levothyroxine Sodium (Synthroid) 100 mcg PO 0600 [facility] Last Admin: 01/26/18 05:50 Dose: 100 mcg Lisinopril (Zestril) 20 mg PO BID [facility] Last Admin: 01/26/18 09:14 Dose: 20 mg Metformin HCl (Glucophage) 1,000 mg PO BID-[facility] Last Admin: 01/26/18 08:00 Dose: 1,000 mg Metoprolol Tartrate (Lopressor) 75 mg PO BID [facility] Last Admin: 01/26/18 09:13 Dose: 75 mg Pantoprazole Sodium (Protonix) 40 mg IVP Q12HR [facility] Last Admin: 01/26/18 09:15 Dose: 40 mg Potassium Chloride (K-Dur) 20 meq PO QAM-[facility] Last Admin: 01/26/18 08:00 Dose: 20 meq Sodium Chloride (Flush - Normal Saline) 10 ml IVF Q12HR [facility] Last Admin: 01/26/18 09:15 Dose: 10 ml Sodium Chloride (Flush - Normal Saline) 10 ml IVF PRN PRN PRN Reason: Saline Flush Tamsulosin HCl (Flomax) 0.4 mg PO DAILY [facility] Last Admin: 01/26/18 09:13 Dose: 0.4 mg
--- NOTE | 2018-01-26 18:51 | CON ---
DATE OF CONSULTATION: 01/26/2018 HISTORY OF PRESENT ILLNESS: Patient is an 82-year-old gentleman who was in his normal state of health until the day of admission when he passed a large amount of blood per rectum. He describe s his blood as bright red without any pain in his abdomen. He had no nausea, vomiting. He has not h ad any prior bleeding such as this in the past. He has continued to bleed the last several days and he has been treated for a coagulopathy secondary to his Coumadin. He reports colonoscopy maybe 12 ye ars ago at [facility]. He had an EGD by Dr. Pena approximately 10 years ago show ed some esophagitis. He denies any weight loss. He denies any NSAID use. PAST MEDICAL HISTORY: Significant for diabetes mellitus, hypertension, hyperlipidemia, coronary kierra ry disease, atrial fibrillation on Coumadin, hypothyroidism, sleep apnea. PAST SURGICAL HISTORY: Includes coronary artery bypass, appendectomy, back surgery, ankle surgery. ALLERGIES: PENICILLIN. SOCIAL HISTORY: He does not smoke or drink. FAMILY HISTORY: Negative for GI or liver disease. MEDICATIONS: Include Zestril 20 mg p.o. daily, Norvasc 5 mg p.o. daily, aspirin 81 mg p.o. daily, in sulin, and tamsulosin 0.4 mg p.o. daily, Lipitor 20 mg p.o. daily, metoprolol 75 mg p.o. every day, w arfarin 1 mg p.o. daily, alternating with 2 mg p.o. daily, isosorbide mononitrate 60 mg p.o. every da y, levothyroxine 100 mcg p.o. daily, Lasix 80 mg p.o. daily, metformin 1 p.o. b.i.d., potassium chlor diana 20 mEq p.o. daily, finasteride 5 mg p.o. daily. REVIEW OF SYSTEMS: Constitutional: No fever, chills, no weight loss. Eyes: No blurred vision or d ouble vision. ENT: No sore throat or earache. Cardiovascular: No chest pain or palpitations. Pul monary: No shortness of breath, cough, or wheezing. Skin: No rashes. Neurologic: No numbness or seizure activity. PHYSICAL EXAMINATION: GENERAL: Shows overweight male in no acute distress. VITAL SIGNS: Temperature 97.5, pulse is 63, respiratory rate 16, blood pressure 120/68. HEENT: Unremarkable. NECK: Supple. CHEST: Clear. CARDIOVASCULAR: Regular rate and rhythm without murmurs or gallops. ABDOMEN: Soft, nontender, without organomegaly or masses. RECTAL: Deferred. EXTREMITIES: Normal. NEUROLOGIC: Nonfocal. LABORATORY DATA: Shows admission hemoglobin of 9.7. Repeat shows a dropping to 8.5, MCV is normal. PT on admission was 84.1 with an INR 9.7. Today's PT is 71 with an INR of 1.4. Admission chemistri es showed potassium 3.3, chloride 111. ASSESSMENT: 1. Lower gastrointestinal bleed. 2. Coagulopathy. 3. Atrial fibrillation. 4. Diabetes mellitus. 5. Coronary artery disease. RECOMMENDATION: Colonoscopy tomorrow.
[2018-01-26] MEDS ORDERED: GoLYTELY 4,000 ml Bottle PO SCH (21:15)
[2018-01-27] MEDS: Levothyroxine Sodium 100 MCG TAB PO SCH (05:19)
[2018-01-27] MEDS: Metoprolol Tartrate 50 MG TAB PO SCH ×2 (05:20→20:09)
[2018-01-27 05:23] LABS: #Basophils 0.1 thou/uL (0.0-0.2); #Eosinphils 0.5 thou/uL (0.0-0.7); #Lymphocytes 2.1 thou/uL (1.20-3.40); #Monocytes 0.7 thou/uL (0.11-0.59); %Basophils 0.8 % (0.0-1.0); %Lymphocytes 22.3 % (21.0-51.0); %Monocytes 7.1 % (0.0-10.0); %Neutrophils 64.7 % (42.0-75.0); Hemoglobin 7.3 g/dL (14.0-18.0); Mean Corpuscular HGB CONC 33.8 g/dL (32.0-36.0); Mean Corpuscular Hemoglobin 29.3 pg (27.0-31.0); Mean Corpuscular Volume 86.8 fl (80.0-94.0); Mean Platelet Volume 7.7 fL (7.4-10.4); Platelet Count 251 thou/uL (130-400); RBC Distribution Width 15.9 % (11.5-14.5); White Blood Cell (WBC) Count 9.2 thou/uL (4.8-10.8)
[2018-01-27 06:11] LABS: INR-International Normal Ratio 1.4; Prothrombin Time 17.6 SEC (12.0-14.7)
[2018-01-27 06:12] LABS: PTT 31.6 SEC (22.9-36.1)
[2018-01-27] MEDS: Potassium Chloride 20 MEQ TAB PO SCH (08:28)
[2018-01-27] MEDS: Atorvastatin Calcium 20 MG TAB PO SCH (08:28)
[2018-01-27] MEDS: Docusate 100 MG CAP PO SCH ×2 (08:28→20:10)
[2018-01-27] MEDS: Finasteride 5 MG TAB PO SCH (08:28)
[2018-01-27] MEDS: Pantoprazole 40 MG VIAL IVP SCH ×2 (08:29→20:10)
[2018-01-27] MEDS: metFORMIN 500 MG TAB PO SCH (08:29)
[2018-01-27] MEDS: Amlodipine 5 MG TAB PO SCH (08:29)
[2018-01-27] MEDS: Tamsulosin HCl 0.4 MG CAP PO SCH (08:29)
[2018-01-27] MEDS: Alogliptin 6.25 MG TAB PO SCH (08:29)
[2018-01-27] MEDS: Lisinopril 20 MG TAB PO SCH ×2 (08:30→20:09)
[2018-01-27] MEDS: Insulin NPH/Reg Insulin Hm 300 UNITS/3 ML VIAL SC SCH (08:35)
--- NOTE | 2018-01-27 13:14 | PDOC.PN ---
- Subjective Encounter Start Date: 01/27/18 Encounter Start Time: 08:20 Subjective: no further bleeding per rectum, had a rough night due to [place] - Objective Resuscitation Status: Resuscitation Status FULL:Full Resuscitation MAR Reviewed: Yes Vital Signs & Weight: Vital Signs (12 hours) Temp Pulse Resp BP BP Pulse Ox 01/27/18 11:15 98.5 F 88 16 103/58 L 95 01/27/18 08:30 112/59 L 01/27/18 08:29 64 112/59 L 01/27/18 08:00 97.5 F L 64 16 01/27/18 07:31 97.5 F L 64 16 112/59 L 97 01/27/18 05:16 97.8 F 71 18 136/53 L 95 I&O: 01/26/18 01/27/18 01/28/18 06:59 06:59 06:59 Intake Total 2220 1500 Balance 2220 1500 Result Diagrams: 01/27/18 04:24 01/25/18 03:51 Additional Labs: Accuchecks 01/27/18 01/27/18 01/27/18 11:16 05:58 05:11 POC Glucose 127 H 110 54 L* 01/26/18 01/26/18 20:18 16:40 POC Glucose 95 93 Phys Exam - Physical Examination HEENT: PERRLA, moist MMs Neck: no JVD, supple Respiratory: no wheezing, no rales Cardiovascular: RRR, no significant murmur Gastrointestinal: soft, non-tender, positive bowel sounds Musculoskeletal: pulses present, edema present Neurological: non-focal, moves all 4 limbs Psychiatric: normal affect, A&O x 3 Dx/Plan (1) Acute blood loss anemia Code(s): D62 - ACUTE POSTHEMORRHAGIC ANEMIA Status: Acute (2) Warfarin-induced coagulopathy Code(s): D68.32 - HEMORRHAGIC DISORD D/T EXTRINSIC CIRCULATING ANTICOAGULANTS; T45.515A - ADVERSE EFFECT OF ANTICOAGULANTS, INITIAL ENCOUNTER Status: Resolved (3) GI bleed Code(s): K92.2 - GASTROINTESTINAL HEMORRHAGE, UNSPECIFIED Status: Acute Qualifiers: GI bleed type/associated pathology: unspecified gastrointestinal hemorrhage type Qualified Code(s): K92.2 - Gastrointestinal hemorrhage, unspecified (4) HTN (hypertension) Code(s): I10 - ESSENTIAL (PRIMARY) HYPERTENSION Status: Chronic Qualifiers: Hypertension type: essential hypertension Qualified Code(s): I10 - Essential (primary) hypertension (5) Obesity Code(s): E66.9 - OBESITY, UNSPECIFIED Status: Chronic Qualifiers: Obesity classification: adult class 3 (BMI >= 40) Body mass index: BMI 40.0 -44.9 (6) CAD (coronary artery disease) Code(s): I25.10 - ATHSCL HEART DISEASE OF [place] CORONARY ARTERY W/O ANG PCTRS Status: Chronic Qualifiers: Coronary Disease-Associated Artery/Lesion type: bypass graft [place] vs. transplanted heart: [place] heart Associated angina: without angina Qualified Code(s): I25.810 - Atherosclerosis of coronary artery bypass graft(s) without angina pectoris (7) Hypothyroidism Code(s): E03.9 - HYPOTHYROIDISM, UNSPECIFIED Status: Chronic Qualifiers: Hypothyroidism type: unspecified Qualified Code(s): E03.9 - Hypothyroidism , unspecified (8) Chronic anemia Code(s): D64.9 - ANEMIA, UNSPECIFIED Status: Chronic (9) Chronic obstructive lung disease Code(s): J44.9 - CHRONIC OBSTRUCTIVE PULMONARY DISEASE, UNSPECIFIED Status: Chronic (10) Atrial fibrillation Code(s): I48.91 - UNSPECIFIED ATRIAL FIBRILLATION Status: Chronic (11) Diabetes mellitus Code(s): E11.9 - TYPE 2 DIABETES MELLITUS WITHOUT COMPLICATIONS Status: Chronic - Plan hypoglcemic this am, npo for colonoscopy, hold all dm meds -: h/h around 03/25, will check in am and transfuse if Hb <7g -: inr is 1.4 today -: d/w reg switching to newer anticoag -: on lisinopril, lopressor and lasix * . Review of Systems - Medications/Allergies Allergies/Adverse Reactions: Allergies Allergy/AdvReac Type Severity Reaction Status Date / Time Penicillins Allergy Verified 12/07/17 16:58 Medications: Current Medications Acetaminophen (Tylenol) 650 mg PO Q4H PRN PRN Reason: Headache/Fever or Pain Hydrocodone Bitart/Acetaminophen ([place] 5/325) 1 tab PO Q4H PRN PRN Reason: Moderate Pain (4-6) Last Admin: 01/25/18 14:52 Dose: 1 tab Amlodipine Besylate (Norvasc) 5 mg PO DAILY [facility] Last Admin: 01/27/18 08:29 Dose: 5 mg Atorvastatin Calcium (Lipitor) 20 mg PO DAILY [facility] Last Admin: 01/27/18 08:28 Dose: 20 mg Docusate Sodium (Colace) 100 mg PO BID [facility] Last Admin: 01/27/18 08:28 Dose: Not Given Finasteride (Proscar) 5 mg PO DAILY [facility] Last Admin: 01/27/18 08:28 Dose: 5 mg Isosorbide Mononitrate (Imdur) 60 mg PO DAILY [facility] Last Admin: 01/27/18 08:28 Dose: 60 mg Levothyroxine Sodium (Synthroid) 100 mcg PO 0600 [facility] Last Admin: 01/27/18 05:19 Dose: Not Given Lisinopril (Zestril) 20 mg PO BID [facility] Last Admin: 01/27/18 08:30 Dose: 20 mg Metoprolol Tartrate (Lopressor) 75 mg PO BID [facility] Last Admin: 01/27/18 05:20 Dose: 75 mg Pantoprazole Sodium (Protonix) 40 mg IVP Q12HR [facility] Last Admin: 01/27/18 08:29 Dose: 40 mg Potassium Chloride (K-Dur) 20 meq PO QAM-WM [facility] Last Admin: 01/27/18 08:28 Dose: 20 meq Sodium Chloride (Flush - Normal Saline) 10 ml IVF Q12HR [facility] Last Admin: 01/27/18 08:29 Dose: 10 ml Sodium Chloride (Flush - Normal Saline) 10 ml IVF PRN PRN PRN Reason: Saline Flush Tamsulosin HCl (Flomax) 0.4 mg PO DAILY [facility] Last Admin: 01/27/18 08:29 Dose: 0.4 mg
[2018-01-27] MEDS ORDERED: Lidocaine 1% PF 5 ML VIAL ONE (13:27)
[2018-01-27] MEDS ORDERED: PROPOFOL 200 MG/20 ML VIAL ONE (13:27)
[2018-01-27] MEDS ORDERED: PHENYLEPHRINE-NS 100 MCG/ML 10 ML SYRINGE ONE ×2 (13:27→15:01)
[2018-01-27] MEDS ORDERED: Ondansetron HCl/PF 4 MG/2 ML Vial IVP PRN (14:50)
[2018-01-27] MEDS ORDERED: Promethazine HCl 25 MG/ML VIAL IM PRN (14:50)
[2018-01-27] MEDS ORDERED: Promethazine HCl 25 MG/ML VIAL SLOW IVP PRN (14:50)
--- NOTE | 2018-01-27 15:55 | OP ---
PREOPERATIVE DIAGNOSIS: Gastrointestinal bleeding. PROCEDURE: After informed consent was obtained, the patient placed in left lateral decubitus positio n. Anesthesia was administered per the Anesthesia Department. Forward-viewing colonoscope was inser adriana into the rectum after perianal inspection and rectal exam were normal. This passed to the cecum with some difficulty secondary to looping. The terminal ileum could not be entered, but bloody efflu ent was noted throughout the colon. This was washed somewhat and no reaccumulation of blood was seen . There were two small polyps, one in the ascending and one in the rectum. Both of these were remov ed with hot snare polypectomy. Left-sided diverticula were noted. Retroflexion in the rectum showed internal hemorrhoids. ASSESSMENT: 1. Left-sided diverticulosis coli - question whether this is the source of the bleeding since the pa tient's effluent was bloody throughout the colon. 2. Two small colon polyps, one in the ascending, one in the rectum - status post a hot polypectomy, snare. 3. Bloody effluent throughout the colon. 4. Internal hemorrhoids. RECOMMENDATIONS: 1. Continue to hold anticoagulation. 2. Serial H&H. 3. We will perform EGD to rule out upper gastrointestinal bleed. PROCEDURE: After informed consent was obtained, the patient placed in the left lateral decubitus pos ition. Anesthesia was administered per the Anesthesia Department. Forward-viewing endoscope was ins erted into the esophagus under direct visualization with ease and passed to the second portion of the duodenum with ease. Second portion of duodenum and duodenal bulb were normal. The pylorus, antrum, body, fundus, and cardia were normal. Retroflexion in the stomach was normal. Esophagus was normal throughout. No blood was seen in the upper GI tract. ASSESSMENT: Normal esophagogastroduodenoscopy. RECOMMENDATIONS: 1. Gastrointestinal bleeding scan. 2. Continue serial H&H. 3. Hold anticoagulation.
[2018-01-27] MEDS ORDERED: Phytonadione 10 MG/ML AMP PO SCH (19:00)
--- NOTE | 2018-01-27 19:04 | NM ---
NUCLEAR MEDICINE TAGGED RED CELL SCAN: CLINICAL HISTORY: Bright red blood per rectum. FINDINGS: There is abnormal increased scintigraphic activity localizing to the right abdomen, which does ana cristina se the expected confines of the right hepatic flexure, indicating an acute colonic bleed, active sour ce centered about the mid ascending colon. IMPRESSION: Abnormal tagged red cell scan with findings to indicate active source of bleeding centered about the mid ascending colon. These findings were conveyed to the ordering physician, Zenon Huynh M.D., of gastroenterology, at the time of the interpretation, 1820 hours, on 01/27/2018. CODE CR POS: [id number]
[2018-01-27] MEDS ORDERED: Phytonadione 10 MG/ML AMP SC SCH (19:15)
[2018-01-28] MEDS: Levothyroxine Sodium 100 MCG TAB PO SCH (05:32)
[2018-01-28 05:41] LABS: INR-International Normal Ratio 1.4
[2018-01-28] MEDS: Pantoprazole 40 MG VIAL IVP SCH ×2 (07:53→21:21)
[2018-01-28] MEDS: Finasteride 5 MG TAB PO SCH (07:54)
[2018-01-28] MEDS: Tamsulosin HCl 0.4 MG CAP PO SCH (07:54)
[2018-01-28] MEDS: Potassium Chloride 20 MEQ TAB PO SCH (07:54)
[2018-01-28] MEDS: Atorvastatin Calcium 20 MG TAB PO SCH (07:54)
[2018-01-28] MEDS: Docusate 100 MG CAP PO SCH ×2 (07:55→21:22)
[2018-01-28] MEDS: Lisinopril 20 MG TAB PO SCH ×2 (07:55→21:22)
[2018-01-28] MEDS: Amlodipine 5 MG TAB PO SCH (07:56)
[2018-01-28] MEDS: Metoprolol Tartrate 50 MG TAB PO SCH (07:56)
[2018-01-28 08:30] LABS: #Basophils 0.1 thou/uL (0.0-0.2); #Eosinphils 0.5 thou/uL (0.0-0.7); #Lymphocytes 1.3 thou/uL (1.20-3.40); #Monocytes 0.7 thou/uL (0.11-0.59); #Neutrophils 6.6 thou/uL (1.40-6.50); %Basophils 0.7 % (0.0-1.0); %Eosinophils 5.1 % (0.0-10.0); %Lymphocytes 14.7 % (21.0-51.0); %Monocytes 7.2 % (0.0-10.0); %Neutrophils 72.2 % (42.0-75.0); Hemoglobin 6.9 g/dL (14.0-18.0); Mean Corpuscular Hemoglobin 29.1 pg (27.0-31.0); Mean Corpuscular Volume 88.1 fl (80.0-94.0); Platelet Count 237 thou/uL (130-400); RBC Distribution Width 16.3 % (11.5-14.5); Red Blood Cell (RBC) Count 2.36 mill/uL (4.70-6.10); White Blood Cell (WBC) Count 9.1 thou/uL (4.8-10.8)
[2018-01-28 08:48] LABS: Anion Gap 10 mmol/L (10-20); BUN (Urea Nitrogen) 11 mg/dL (8.4-25.7); Calc. Creatinine Clearance 104 mL/min (70-130); Calcium 8.5 mg/dL (7.8-10.44); Carbon Dioxide 28 mmol/L (23-31); Chloride 106 mmol/L (98-107); Estimated GFR-MDRD Greater than 90; Glucose 232 mg/dL (83-110); Potassium 3.9 mmol/L (3.5-5.1); Sodium 140 mmol/L (136-145)
--- NOTE | 2018-01-28 11:14 | PDOC.PN ---
- Subjective Encounter Start Date: 01/28/18 Encounter Start Time: 09:40 Subjective: no abd pain or sob -: is sitting in chair - Objective Resuscitation Status: Resuscitation Status FULL:Full Resuscitation MAR Reviewed: Yes Vital Signs & Weight: Vital Signs (12 hours) Temp Pulse Resp BP BP BP Pulse Ox 01/28/18 08:00 98.0 F 73 16 97 01/28/18 07:56 73 130/72 01/28/18 07:55 130/72 01/28/18 07:14 98 F 73 16 130/72 97 01/28/18 04:21 97.7 F 74 20 125/73 96 01/27/18 23:53 97.8 F 90 20 120/64 95 I&O: 01/27/18 01/28/18 01/29/18 06:59 06:59 06:59 Intake Total 1500 720 Balance 1500 720 Result Diagrams: 01/28/18 08:23 01/28/18 08:23 Additional Labs: Accuchecks 01/28/18 01/28/18 01/27/18 04:29 01:37 11:16 POC Glucose 157 H 196 H 127 H Phys Exam - Physical Examination HEENT: PERRLA, moist MMs Neck: no JVD, supple Respiratory: no wheezing, no rales Cardiovascular: RRR, no significant murmur Gastrointestinal: soft, non-tender, positive bowel sounds Musculoskeletal: pulses present, edema present Neurological: non-focal, moves all 4 limbs Psychiatric: A&O x 3 Dx/Plan (1) Acute blood loss anemia Code(s): D62 - ACUTE POSTHEMORRHAGIC ANEMIA Status: Acute (2) Warfarin-induced coagulopathy Code(s): D68.32 - HEMORRHAGIC DISORD D/T EXTRINSIC CIRCULATING ANTICOAGULANTS; T45.515A - ADVERSE EFFECT OF ANTICOAGULANTS, INITIAL ENCOUNTER Status: Resolved (3) GI bleed Code(s): K92.2 - GASTROINTESTINAL HEMORRHAGE, UNSPECIFIED Status: Acute Qualifiers: GI bleed type/associated pathology: diverticulosis Qualified Code(s): K57.91 - Diverticulosis of intestine, part unspecified, without perforation or abscess with bleeding (4) HTN (hypertension) Code(s): I10 - ESSENTIAL (PRIMARY) HYPERTENSION Status: Chronic Qualifiers: Hypertension type: essential hypertension Qualified Code(s): I10 - Essential (primary) hypertension (5) Obesity Code(s): E66.9 - OBESITY, UNSPECIFIED Status: Chronic Qualifiers: Obesity classification: adult class 3 (BMI >= 40) Body mass index: BMI 40.0 -44.9 (6) CAD (coronary artery disease) Code(s): I25.10 - ATHSCL HEART DISEASE OF [place] CORONARY ARTERY W/O ANG PCTRS Status: Chronic Qualifiers: Coronary Disease-Associated Artery/Lesion type: bypass graft [place] vs. transplanted heart: [place] heart Associated angina: without angina Qualified Code(s): I25.810 - Atherosclerosis of coronary artery bypass graft(s) without angina pectoris (7) Hypothyroidism Code(s): E03.9 - HYPOTHYROIDISM, UNSPECIFIED Status: Chronic Qualifiers: Hypothyroidism type: unspecified Qualified Code(s): E03.9 - Hypothyroidism , unspecified (8) Chronic anemia Code(s): D64.9 - ANEMIA, UNSPECIFIED Status: Chronic (9) Chronic obstructive lung disease Code(s): J44.9 - CHRONIC OBSTRUCTIVE PULMONARY DISEASE, UNSPECIFIED Status: Chronic (10) Atrial fibrillation Code(s): I48.91 - UNSPECIFIED ATRIAL FIBRILLATION Status: Chronic (11) Diabetes mellitus Code(s): E11.9 - TYPE 2 DIABETES MELLITUS WITHOUT COMPLICATIONS Status: Chronic - Plan 1 unit prbc today -: nuclear scan reveals bleeding in asc colon -: serial h/h, is off coumadin -: to ambulate as tolerated -: diet per GI advice * . Review of Systems - Medications/Allergies Allergies/Adverse Reactions: Allergies Allergy/AdvReac Type Severity Reaction Status Date / Time Penicillins Allergy Verified 12/07/17 16:58 Medications: Current Medications Acetaminophen (Tylenol) 650 mg PO Q4H PRN PRN Reason: Headache/Fever or Pain Hydrocodone Bitart/Acetaminophen ([place] 5/325) 1 tab PO Q4H PRN PRN Reason: Moderate Pain (4-6) Last Admin: 01/25/18 14:52 Dose: 1 tab Amlodipine Besylate (Norvasc) 5 mg PO DAILY [facility] Last Admin: 01/28/18 07:56 Dose: 5 mg Atorvastatin Calcium (Lipitor) 20 mg PO DAILY [facility] Last Admin: 01/28/18 07:54 Dose: 20 mg Docusate Sodium (Colace) 100 mg PO BID [facility] Last Admin: 01/28/18 07:55 Dose: Not Given Finasteride (Proscar) 5 mg PO DAILY [facility] Last Admin: 01/28/18 07:54 Dose: 5 mg Isosorbide Mononitrate (Imdur) 60 mg PO DAILY [facility] Last Admin: 01/28/18 07:54 Dose: 60 mg Levothyroxine Sodium (Synthroid) 100 mcg PO 0600 [facility] Last Admin: 01/28/18 05:32 Dose: 100 mcg Lisinopril (Zestril) 20 mg PO BID [facility] Last Admin: 01/28/18 07:55 Dose: 20 mg Metoprolol Tartrate (Lopressor) 100 mg PO BID [facility] Pantoprazole Sodium (Protonix) 40 mg IVP Q12HR [facility] Last Admin: 01/28/18 07:53 Dose: 40 mg Potassium Chloride (K-Dur) 20 meq PO QAM-WM [facility] Last Admin: 01/28/18 07:54 Dose: 20 meq Sodium Chloride (Flush - Normal Saline) 10 ml IVF Q12HR [facility] Last Admin: 01/28/18 07:54 Dose: 10 ml Sodium Chloride (Flush - Normal Saline) 10 ml IVF PRN PRN PRN Reason: Saline Flush Tamsulosin HCl (Flomax) 0.4 mg PO DAILY [facility] Last Admin: 01/28/18 07:54 Dose: 0.4 mg
--- NOTE | 2018-01-28 12:00 | PRG ---
DATE OF SERVICE: 01/28/2018 SUBJECTIVE: The patient has had a few bowel movements today. They seem to be getting frame nailer as far as the blood is concerned. He is, otherwise, without complaints. OBJECTIVE: VITAL SIGNS: Temperature is 98.0, pulse 73, respiratory rate 16, blood pressure 130/72. CHEST: Clear. CARDIOVASCULAR: Irregular rate and rhythm. ABDOMEN: Benign. LABORATORY DATA: Laboratory shows a glucose of 232, hemoglobin 6.9, hematocrit 20.8. PT is 17.0 wit h an INR of 1.4. GI bleeding scan done yesterday showed an abnormal tagged red cell scan with findin gs to indicate active bleeding in the mid ascending colon. ASSESSMENT: 1. Lower gastrointestinal bleed - bleeding scan seemed to indicate a mid ascending colon. No lesion s were noted over there, but the prep was suboptimal. 2. Coagulopathy secondary to Coumadin - the patient has been seen by Dr. Moreau and maybe switched to Eliquis or Xarelto. 3. Atrial fibrillation. 4. Diabetes mellitus. 5. Coronary artery disease. RECOMMENDATIONS: 1. Transfuse 1 unit. 2. Continue serial H and H. 3. Continue to hold all anticoagulants.
--- NOTE | 2018-01-28 20:12 | CON ---
DATE OF CONSULTATION: 01/28/2018 HISTORY OF PRESENT ILLNESS: Thanh Malloy is an 82-year-old [place] male that I have been following since 11/1993. 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 He also would have this after climbing one-half mile to the top of the hill. With exertion, he would have burning in his chest associated with shortness of breath, relieved with rest in 1 minute. He went to [facility] for evaluation and was found to have minor changes on his EKG and was transferred to [place]. He had biphasic anterolateral T-wave changes. He underwent cardiac catheterization, and there was a 90% proximal LAD lesion with distal vessel filling retrograde from the right coronary artery. There was a 50% proximal circumflex, 60% first obtuse marginal lesion. He had normal left ventricular function. 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 In 05/1994, he underwent treadmill testing, which was negative for ischemia. He did not return for followup. In 07/2002, he had an abnormal Cardiolite scan and underwent repeat catheterization by Dr. Willis. This revealed 90% LAD, 95% apical LAD, 75% circumflex, 99% second obtuse marginal. Right coronary artery did not have any significant disease. He then underwent CABG x3 with ALCALA to the LAD and vein graft to second obtuse marginal and radial artery to the first obtuse marginal. Postoperatively, he had atrial fibrillation. He did return for followup in and was walking 2-1/2 to 4 miles per day without difficulty. He was not seen again for 6 years until 11/2011, when he was admitted complaining of throat soreness and mild cough for 3 days. He had a temperature of 102 at home. He also complained of chest discomfort in the upper part of his sternal incision that was tender to the touch. He was in atrial fibrillation when he presented to the emergency room. CT angiogram was performed due to elevated D-dimer. This revealed no evidence of pulmonary embolism. He was placed on Cardizem drip and converted back to sinus rhythm. He was placed on beta-brooke and Cardizem was tapered. He was on amlodipine and had leg edema and the amlodipine was stopped, and he was gently diuresed. He was placed on Lovenox and then Coumadin. Two and one-half weeks later, he returned with increased shortness of breath and COPD exacerbation. He is also noted to be bradycardic with heart rates in the 40s. Due to bradycardia, metoprolol was reduced and then he started to have episodes of supraventricular tachycardia and possible atrial flutter and atrial fibrillation. He was given metoprolol and his heart rate was in the 40s. He was seen by Dr. Grover and it was recommended that a pacemaker be placed. Coumadin was held, and ultimately, he underwent pacemaker placement and then was placed on Multaq 400 mg b.i.d. and Coumadin was restarted. In 2011, he is doing well when seen in the office. Pacemaker interrogation showed that he had multiple short episodes of the atrial fibrillation every day. He was placed on digoxin for better rate control. In 05/2012, he continued to have intermittent episodes of atrial fibrillation and atrial therapies on the pacemaker was turned on. In 07/2012, he was admitted with increased shortness of breath, which was felt due to acute on chronic diastolic heart failure. He was placed on intravenous diuretics and symptoms improved. During that admission, he appeared to be chronically in atrial fibrillation. In 08/2012, he again presented with 5-7 days of worsening dyspnea. He was seen by Dr. Linda during that admission, and it was recommended that he undergo catheter ablation of his atrial fibrillation with his significant diastolic dysfunction. Echo during that admission revealed ejection fraction of 50% to 55 % with evidence of diastolic dysfunction. Tikosyn was discussed; however, he declined. He was then admitted one month later in 09/2012 with increased lower extremity edema for 3-4 days and shortness of breath. He is in atrial fibrillation. Multaq was discontinued. He again declined Tikosyn. He ultimately underwent radiofrequency ablation of the atrial fibrillation on 10/20 in [place]. After the ablation, he noted a dramatic increase in his exercise tolerance. In 07/2013, he had no symptoms. In 03/2014, he had been working on a 1 to 1.5-acre [employer] and continued to work outside. In 09/2014, he was admitted with left-sided chest discomfort that radiated to his left arm. This lasted 3-4 hours, and ultimately, he came to the emergency room. Peak troponin I was 2.135. MBs were normal. He ultimately underwent catheterization, which revealed moderate anterior hypokinesis with ejection fraction of 45% to 50%. There was 60% left main stenosis, 70% proximal LAD. The diagonal was totally occluded and filled from the graft to the first obtuse marginal and the graft to the second obtuse marginal. There was a 60% ramus lesion. Circumflex had an 80% proximal stenosis and was totally occluded in its mid portion. The right coronary artery had a 50% proximal stenosis and a 50 % distal stenosis. Bypass grafts revealed patent ALCALA to the LAD; however, there was 95% distal LAD stenosis and diffuse disease. The left radial to the first obtuse marginal was patent. The vein to the second obtuse marginal was patent. It was felt that his coronary anatomy was stable except for the diffuse LAD disease distal to the ALCALA insertion. It was also discovered during that admission that he had stopped metoprolol 50 b.i.d. 6-8 weeks prior to admission. It is unclear why he had stopped it. Metoprolol was resumed. He had significant improvement in his breathing. He continued to be followed in the office. He did need to undergo pacemaker replacement for pacemaker at elective replacement indicator in 02/2017. In 11/2017, in the office, he denied any chest pain or shortness of breath, and blood pressure was 137/85 during that visit. He was admitted on 12/07/2017 with increased shortness of breath. One episode lasted 10-15 seconds, but then he had another episode that was continuous. At home, his blood pressure was 220/104, and he was brought to the emergency room. With intravenous Lasix, his breathing improved and he pretty much returned to normal. He was discharged 6 days later. Echocardiogram showed ejection fraction of 55% to 60% with mild concentric left ventricular hypertrophy. CT angiogram of the chest was negative for pulmonary embolism, but did show bilateral pleural effusion, right greater than the left. He was last seen in the office on 12/26/2017 and his breathing had been doing well at home. He now is admitted on 01/24/2018 with blood in his stool as well as feeling dizzy. He was found to have an INR of 9.0. He denied any chest discomfort or significant worsening of his shortness of breath. He underwent EGD, which was normal. Colonoscopy revealed bloody effluent throughout the colon. There were internal hemorrhoids. There was left-sided diverticulosis coli. There were 2 small colonic polyps; 1 in the rectum and 1 in the ascending colon, which were removed. He then underwent a bleeding scan, which revealed an active source of bleeding in the mid ascending colon. Question is regarding his long-term anticoagulation with Coumadin. PAST MEDICAL HISTORY: Hypertension; diabetes; hyperlipidemia; obesity; hypothyroidism; COPD; obstructive sleep apnea, on CPAP; tachybrady syndrome; paroxysmal atrial fibrillation; history of diastolic heart failure; coronary artery disease; and [id number] aortic stenosis. OPERATIONS: CABG; pacemaker placement, and ultimately, replacement in 02/2017; radiofrequency ablation of atrial fibrillation; back surgery; right ankle surgery. MEDICATIONS: Aspirin 81 daily, atorvastatin 20 at bedtime, Colace 100 daily, Avodart 0.5 mg daily, furosemide 80 mg q.a.m., hydrocodone q.4 hours p.r.n., isosorbide mononitrate 60 mg q.a.m., metoprolol 100 mg b.i.d., Flomax 0.4 daily , warfarin 2 mg daily as directed, amlodipine 5 daily, finasteride 5, levothyroxine 100 mcg daily, lisinopril 20 b.i.d., potassium chloride 20 mEq q.a.m., Humulin 70/30 of 44 units b.i.d., Janumet 1 tablet b.i.d. (). ALLERGIES: PENICILLINS. SOCIAL HISTORY: He smoked 3 packs per day, but stopped 43 years ago. He has not had any alcohol in 38 years. 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 FAMILY HISTORY: Negative for myocardial infarction or CABG. REVIEW OF SYSTEMS: Twelve-point review of systems, otherwise, unremarkable. PHYSICAL EXAMINATION: VITAL SIGNS: Blood pressure 130/72, pulse of 73. HEENT: PERRL. NECK: Supple. CHEST: Clear. CARDIAC EXAMINATION: S1 and S2 normal, without any S3 or S4. There is a 2/6 systolic murmur in the aortic area. Carotid upstroke is normal. ABDOMEN: Obese. Normal bowel sounds, no tenderness. EXTREMITIES: Revealed 1+ pretibial edema. NEUROLOGIC: Grossly intact. SKIN: Warm and dry. LABORATORY DATA: EKG revealed atrial pacing with nonspecific ST- and T-wave changes. Pacemaker was interrogated. He has not had any significant atrial fibrillation since he was last interrogated in the hospital in 12/2017. He has had three-mode switch episodes for atrial arrhythmias, lasting less than 1 minute. Hemoglobin 6.9, hematocrit 20.8, white count 9100, platelets 237,000. INR was 9.4, then 9.7 at admission. It is now down to 1.4. Sodium 140, potassium is 3.9, chloride 106, carbon dioxide 28, BUN 11, creatinine 0.79. IMPRESSION: 1. Gastrointestinal bleed, which appears to be localized to the mid ascending colon on bleeding scan. 2. Over-anticoagulation with INR going up to 9.7. 3. Status post coronary artery bypass grafting x3 with grafts patent in 2014 with progression of distal disease in the left anterior descending, distal to the left internal mammary artery insertion. 4. History of tachybrady syndrome with paroxysmal atrial fibrillation as well as episodes of significant bradycardia. He had pacemaker placed, and also has undergone radiofrequency ablation of the atrial fibrillation. 5. History of chronic diastolic heart failure. 6. Diabetes. 7. Hyperlipidemia. 8. Hypertension. 9. Obesity. 10. Obstructive sleep apnea. 11. Mild to moderate Aortic Stenosis. PLAN: It would certainly be reasonable to change to one of the newer anticoagulation agents once it is felt safe by Gastroenterology. Overall, I would probably place him on Eliquis 5 mg b.i.d. once it is considered to safe to resume anticoagulation. With his hemoglobin of 6.9 today, he certainly may require transfusion. Also, he is on metoprolol 100 mg b.i.d. and this dosage will be corrected on his orders. [facility]
[2018-01-28] MEDS: Metoprolol Tartrate 100 MG TAB PO SCH (21:22)
[2018-01-29] MEDS: Levothyroxine Sodium 100 MCG TAB PO SCH (05:57)
[2018-01-29 05:59] LABS: Anion Gap 7 mmol/L (10-20); BUN (Urea Nitrogen) 12 mg/dL (8.4-25.7); Calc. Creatinine Clearance 109 mL/min (70-130); Calcium 8.8 mg/dL (7.8-10.44); Carbon Dioxide 31 mmol/L (23-31); Chloride 108 mmol/L (98-107); Estimated GFR-MDRD Greater than 90; Glucose 171 mg/dL (83-110); Potassium 3.5 mmol/L (3.5-5.1); Sodium 142 mmol/L (136-145)
[2018-01-29 06:22] LABS: #Basophils 0.1 thou/uL (0.0-0.2); #Eosinphils 0.4 thou/uL (0.0-0.7); #Lymphocytes 1.6 thou/uL (1.20-3.40); #Monocytes 0.6 thou/uL (0.11-0.59); #Neutrophils 4.7 thou/uL (1.40-6.50); %Basophils 0.8 % (0.0-1.0); %Eosinophils 5.7 % (0.0-10.0); %Lymphocytes 21.9 % (21.0-51.0); %Monocytes 8.6 % (0.0-10.0); Anisocytosis SLIGHT = 6-15 cells (100X) (0-5/hpf); Hemoglobin 7.4 g/dL (14.0-18.0); MDiff Complete? YES; Mean Corpuscular HGB CONC 33.7 g/dL (32.0-36.0); Mean Corpuscular Hemoglobin 30.1 pg (27.0-31.0); Mean Corpuscular Volume 89.4 fl (80.0-94.0); Mean Platelet Volume 7.6 fL (7.4-10.4); Platelet Count 236 thou/uL (130-400); RBC Distribution Width 16.2 % (11.5-14.5); Red Blood Cell (RBC) Count 2.46 mill/uL (4.70-6.10); White Blood Cell (WBC) Count 7.4 thou/uL (4.8-10.8)
[2018-01-29] MEDS ORDERED: Furosemide 80 MG TAB PO SCH (08:00)
[2018-01-29] MEDS: Lisinopril 20 MG TAB PO SCH ×2 (08:04→20:57)
[2018-01-29] MEDS: Metoprolol Tartrate 100 MG TAB PO SCH ×2 (08:05→20:57)
[2018-01-29] MEDS: Amlodipine 5 MG TAB PO SCH (08:05)
[2018-01-29] MEDS: Tamsulosin HCl 0.4 MG CAP PO SCH (08:05)
[2018-01-29] MEDS: Potassium Chloride 20 MEQ TAB PO SCH (08:05)
[2018-01-29] MEDS: Docusate 100 MG CAP PO SCH ×2 (08:06→20:57)
[2018-01-29] MEDS: Atorvastatin Calcium 20 MG TAB PO SCH (09:51)
[2018-01-29] MEDS: Finasteride 5 MG TAB PO SCH (09:51)
[2018-01-29] MEDS ORDERED: Aspirin 81 mg Enteric Coated Tablet PO SCH (10:30)
--- NOTE | 2018-01-29 11:00 | PDOC.PN ---
- Subjective Encounter Start Date: 01/29/18 Encounter Start Time: 09:00 Subjective: still has blood mixed with stool -: no abd pain or sob - Objective Resuscitation Status: Resuscitation Status FULL:Full Resuscitation MAR Reviewed: Yes Vital Signs & Weight: Vital Signs (12 hours) Temp Pulse Resp BP BP Pulse Ox 01/29/18 08:05 70 147/67 H 01/29/18 08:04 147/67 H 01/29/18 08:00 98.4 F 70 16 97 01/29/18 07:46 98.4 F 70 16 147/67 H 97 01/29/18 00:00 97.8 F 76 20 139/63 98 Weight Weight 201 lb 12.8 oz I&O: 01/28/18 01/29/18 01/30/18 06:59 06:59 06:59 Intake Total 720 1050 Balance 720 1050 Result Diagrams: 01/29/18 04:25 01/29/18 04:25 Additional Labs: Accuchecks 01/29/18 01/28/18 01/28/18 05:00 20:15 16:51 POC Glucose 188 H 290 H 236 H 01/28/18 11:18 POC Glucose 220 H Phys Exam - Physical Examination HEENT: PERRLA, moist MMs Neck: no JVD, supple Respiratory: no wheezing, no rales Cardiovascular: RRR, no significant murmur Gastrointestinal: soft, non-tender, positive bowel sounds Musculoskeletal: no edema, pulses present Neurological: non-focal, moves all 4 limbs Psychiatric: normal affect, A&O x 3 Dx/Plan (1) Acute blood loss anemia Code(s): D62 - ACUTE POSTHEMORRHAGIC ANEMIA Status: Acute Comment: got 1 unit prbc 01/28 (2) Warfarin-induced coagulopathy Code(s): D68.32 - HEMORRHAGIC DISORD D/T EXTRINSIC CIRCULATING ANTICOAGULANTS; T45.515A - ADVERSE EFFECT OF ANTICOAGULANTS, INITIAL ENCOUNTER Status: Resolved (3) GI bleed Code(s): K92.2 - GASTROINTESTINAL HEMORRHAGE, UNSPECIFIED Status: Acute Qualifiers: GI bleed type/associated pathology: diverticulosis Qualified Code(s): K57.91 - Diverticulosis of intestine, part unspecified, without perforation or abscess with bleeding (4) HTN (hypertension) Code(s): I10 - ESSENTIAL (PRIMARY) HYPERTENSION Status: Chronic Qualifiers: Hypertension type: essential hypertension Qualified Code(s): I10 - Essential (primary) hypertension (5) Obesity Code(s): E66.9 - OBESITY, UNSPECIFIED Status: Chronic Qualifiers: Obesity classification: adult class 3 (BMI >= 40) Body mass index: BMI 40.0 -44.9 (6) CAD (coronary artery disease) Code(s): I25.10 - ATHSCL HEART DISEASE OF [place] CORONARY ARTERY W/O ANG PCTRS Status: Chronic Qualifiers: Coronary Disease-Associated Artery/Lesion type: bypass graft [place] vs. transplanted heart: [place] heart Associated angina: without angina Qualified Code(s): I25.810 - Atherosclerosis of coronary artery bypass graft(s) without angina pectoris (7) Hypothyroidism Code(s): E03.9 - HYPOTHYROIDISM, UNSPECIFIED Status: Chronic Qualifiers: Hypothyroidism type: unspecified Qualified Code(s): E03.9 - Hypothyroidism , unspecified (8) Chronic anemia Code(s): D64.9 - ANEMIA, UNSPECIFIED Status: Chronic (9) Chronic obstructive lung disease Code(s): J44.9 - CHRONIC OBSTRUCTIVE PULMONARY DISEASE, UNSPECIFIED Status: Chronic (10) Atrial fibrillation Code(s): I48.91 - UNSPECIFIED ATRIAL FIBRILLATION Status: Chronic (11) Diabetes mellitus Code(s): E11.9 - TYPE 2 DIABETES MELLITUS WITHOUT COMPLICATIONS Status: Chronic - Plan nuclear scan showed bleed/ooze from asc colon area -: H/h 03/26, labs in am, has ongoing bleeding still -: to amb as tolerated -: to switch to eliquis once cleared by GI, likely 2 weeks out -: on lopressor 100 bid, lisinopril 20 bid, lasix 80 daily * . to continue flomax and proscar. Review of Systems - Medications/Allergies Allergies/Adverse Reactions: Allergies Allergy/AdvReac Type Severity Reaction Status Date / Time Penicillins Allergy Verified 12/07/17 16:58 Medications: Current Medications Acetaminophen (Tylenol) 650 mg PO Q4H PRN PRN Reason: Headache/Fever or Pain Hydrocodone Bitart/Acetaminophen ([place] 5/325) 1 tab PO Q4H PRN PRN Reason: Moderate Pain (4-6) Last Admin: 01/25/18 14:52 Dose: 1 tab Amlodipine Besylate (Norvasc) 5 mg PO DAILY [facility] Last Admin: 01/29/18 08:05 Dose: 5 mg Aspirin (Ecotrin) 81 mg PO DAILY [facility] Aspirin (Ecotrin) 81 mg PO NOW [facility] Stop: 01/29/18 12:30 Atorvastatin Calcium (Lipitor) 20 mg PO DAILY [facility] Last Admin: 01/29/18 09:51 Dose: 20 mg Docusate Sodium (Colace) 100 mg PO BID [facility] Last Admin: 01/29/18 08:06 Dose: Not Given Finasteride (Proscar) 5 mg PO DAILY [facility] Last Admin: 01/29/18 09:51 Dose: 5 mg Furosemide (Lasix) 80 mg PO DAILY[facility] Isosorbide Mononitrate (Imdur) 60 mg PO DAILY [facility] Last Admin: 01/29/18 08:05 Dose: 60 mg Levothyroxine Sodium (Synthroid) 100 mcg PO 0600 [facility] Last Admin: 01/29/18 05:57 Dose: 100 mcg Lisinopril (Zestril) 20 mg PO BID [facility] Last Admin: 01/29/18 08:04 Dose: 20 mg Metoprolol Tartrate (Lopressor) 100 mg PO BID [facility] Last Admin: 01/29/18 08:05 Dose: 100 mg Pantoprazole Sodium (Protonix) 40 mg PO DAILY [facility] Last Admin: 01/29/18 09:51 Dose: 40 mg Potassium Chloride (K-Dur) 20 meq PO QAM-WM [facility] Last Admin: 01/29/18 08:05 Dose: 20 meq Sodium Chloride (Flush - Normal Saline) 10 ml IVF Q12HR [facility] Last Admin: 01/29/18 09:51 Dose: 10 ml Sodium Chloride (Flush - Normal Saline) 10 ml IVF PRN PRN PRN Reason: Saline Flush Tamsulosin HCl (Flomax) 0.4 mg PO DAILY [facility] Last Admin: 01/29/18 08:05 Dose: 0.4 mg
--- NOTE | 2018-01-29 12:24 | PRG ---
DATE OF SERVICE: 01/29/2018 SUBJECTIVE: The patient is doing well. He reports his bowel movements today were very little blood he says. He is eating well. OBJECTIVE: VITAL SIGNS: Temperature is 98.4, pulse 70, respiratory rate 16, blood pressure 147/67. CHEST: Clear. CARDIOVASCULAR: Regular rate and rhythm. ABDOMEN: Benign. LABORATORY DATA: Shows hemoglobin of 7.4, this is compared to yesterdays of 6.9. ASSESSMENT: 1. Lower gastrointestinal bleed. 2. Coagulopathy, secondary to Coumadin. 3. Atrial fibrillation. 4. Diabetes mellitus. 5. Coronary artery disease. RECOMMENDATIONS: 1. Hold Coumadin for at least [address] Moreau as mentioned, possibly switching him to Xarelto or Eliquis. 2. Recheck H&H in the a.m.; if stable, possibly consider discharge.
[2018-01-30 05:09] LABS: #Basophils 0.1 thou/uL (0.0-0.2); #Eosinphils 0.4 thou/uL (0.0-0.7); #Lymphocytes 1.6 thou/uL (1.20-3.40); #Monocytes 0.7 thou/uL (0.11-0.59); #Neutrophils 5.2 thou/uL (1.40-6.50); %Eosinophils 4.9 % (0.0-10.0); %Lymphocytes 20.1 % (21.0-51.0); %Monocytes 8.6 % (0.0-10.0); %Neutrophils 65.5 % (42.0-75.0); Hemoglobin 6.9 g/dL (14.0-18.0); Mean Corpuscular HGB CONC 33.2 g/dL (32.0-36.0); Mean Corpuscular Hemoglobin 29.8 pg (27.0-31.0); Mean Corpuscular Volume 89.7 fl (80.0-94.0); Mean Platelet Volume 7.6 fL (7.4-10.4); Platelet Count 224 thou/uL (130-400); RBC Distribution Width 16.3 % (11.5-14.5); Red Blood Cell (RBC) Count 2.33 mill/uL (4.70-6.10)
[2018-01-30] MEDS: Levothyroxine Sodium 100 MCG TAB PO SCH (05:53)
[2018-01-30] MEDS: Lisinopril 20 MG TAB PO SCH ×2 (08:14→21:55)
[2018-01-30] MEDS: Docusate 100 MG CAP PO SCH ×2 (08:14→21:54)
[2018-01-30] MEDS: Potassium Chloride 20 MEQ TAB PO SCH (08:14)
[2018-01-30] MEDS: Tamsulosin HCl 0.4 MG CAP PO SCH (08:14)
[2018-01-30] MEDS: Aspirin 81 mg Enteric Coated Tablet PO SCH (08:15)
[2018-01-30] MEDS: Atorvastatin Calcium 20 MG TAB PO SCH (08:15)
[2018-01-30] MEDS: Amlodipine 5 MG TAB PO SCH (08:15)
[2018-01-30] MEDS: Furosemide 80 MG TAB PO SCH (08:16)
[2018-01-30] MEDS: Finasteride 5 MG TAB PO SCH (08:21)
--- NOTE | 2018-01-30 08:23 | PRG ---
DATE OF SERVICE: 01/30/2018 SUBJECTIVE; The patient had 1 bowel movement today, looking at it, it is somewhat blood tinged. The re is some red pinkish tint to the water. He had no bowel movements yesterday. He is eating well. He is having no abdominal pain. OBJECTIVE: VITAL SIGNS: Temperature 98.3, pulse 62, respiratory rate 18, blood pressure 148/53. CHEST: Chest is clear. CARDIOVASCULAR: Regular rate and rhythm. ABDOMEN: Soft, nontender, without organomegaly or masses. LABORATORY DATA: Shows a glucose 235, hemoglobin of 6.9, hematocrit 20.9. ASSESSMENT: 1. Gastrointestinal bleed - suspect diverticular. He may still be actively bleeding since his H&H i s the same as yesterday and he has gotten 1 unit of packed RBCs. 2. Coagulopathy secondary to Coumadin - he has been off now 6 days and should be back to baseline. 3. Atrial fibrillation. 4. Diabetes mellitus. 5. Coronary artery disease. PLAN: 1. Transfuse 1 unit. 2. Continue to hold Coumadin for at least 2 weeks. 3. Recheck H&H this afternoon. He possibly could go home this afternoon or maybe tomorrow morning i f H&H remains stable.
[2018-01-30] MEDS: Metoprolol Tartrate 100 MG TAB PO SCH ×2 (08:24→21:55)
--- NOTE | 2018-01-30 12:43 | PDOC.PN ---
- Subjective Encounter Start Date: 01/30/18 Encounter Start Time: 12:42 Patient seen and examined, no new issues or complaints, all questions answered. - Objective Resuscitation Status: Resuscitation Status FULL:Full Resuscitation Vital Signs & Weight: Vital Signs (12 hours) Temp Pulse Pulse Resp BP BP BP 01/30/18 11:09 98.0 F 64 18 166/70 H 01/30/18 08:15 62 148/53 H 01/30/18 08:14 148/53 H 01/30/18 08:00 98.3 F 62 18 148/53 H Pulse Ox 01/30/18 11:09 01/30/18 08:15 01/30/18 08:14 01/30/18 08:00 97 Weight Weight 201 lb 12.8 oz I&O: 01/29/18 01/30/18 01/31/18 06:59 06:59 06:59 Intake Total 1050 480 0 Balance 1050 480 0 Result Diagrams: 01/30/18 04:23 01/29/18 04:25 Additional Labs: Accuchecks 01/30/18 01/29/18 01/29/18 06:16 20:21 16:52 POC Glucose 235 H 266 H 208 H Phys Exam - Physical Examination Constitutional: NAD HEENT: PERRLA, moist MMs, sclera anicteric Neck: no nodes, no JVD, supple, full ROM Respiratory: no wheezing, no rales, no rhonchi Cardiovascular: no significant murmur, no rub, irregular Gastrointestinal: soft, non-tender, no distention, positive bowel sounds Musculoskeletal: pulses present, edema present (trace) Neurological: non-focal, normal sensation Psychiatric: normal affect, A&O x 3 Dx/Plan (1) Acute blood loss anemia Code(s): D62 - ACUTE POSTHEMORRHAGIC ANEMIA Status: Acute Comment: got 1 unit prbc 01/28 (2) GI bleed Code(s): K92.2 - GASTROINTESTINAL HEMORRHAGE, UNSPECIFIED Status: Acute Qualifiers: GI bleed type/associated pathology: diverticulosis Qualified Code(s): K57.91 - Diverticulosis of intestine, part unspecified, without perforation or abscess with bleeding (3) CAD (coronary artery disease) Code(s): I25.10 - ATHSCL HEART DISEASE OF [place] CORONARY ARTERY W/O ANG PCTRS Status: Chronic Qualifiers: Coronary Disease-Associated Artery/Lesion type: bypass graft [place] vs. transplanted heart: [place] heart Associated angina: without angina Qualified Code(s): I25.810 - Atherosclerosis of coronary artery bypass graft(s) without angina pectoris (4) HTN (hypertension) Code(s): I10 - ESSENTIAL (PRIMARY) HYPERTENSION Status: Chronic Qualifiers: Hypertension type: essential hypertension Qualified Code(s): I10 - Essential (primary) hypertension (5) Hypothyroidism Code(s): E03.9 - HYPOTHYROIDISM, UNSPECIFIED Status: Chronic Qualifiers: Hypothyroidism type: unspecified Qualified Code(s): E03.9 - Hypothyroidism , unspecified (6) Obesity Code(s): E66.9 - OBESITY, UNSPECIFIED Status: Chronic Qualifiers: Obesity classification: adult class 3 (BMI >= 40) Body mass index: BMI 40.0 -44.9 (7) Atrial fibrillation Code(s): I48.91 - UNSPECIFIED ATRIAL FIBRILLATION Status: Chronic (8) Diabetes mellitus Code(s): E11.9 - TYPE 2 DIABETES MELLITUS WITHOUT COMPLICATIONS Status: Chronic - Plan * Hgb at 6.9 from 7.4, being transfused, repeat CBC in AM if Hgb stable will consider possible DC if ok with GI * no other changes in plan of care otherwise * plan d/w patient at length, he understands and agrees with this plan
[2018-01-30] MEDS ORDERED: Dextrose 5% in Water 1,000 ML IV PRN (22:04)
[2018-01-30] MEDS ORDERED: Dextrose 50% Abboject 50 ML SYRINGE IVP PRN (22:04)
[2018-01-30] MEDS ORDERED: HumaLOG 300 UNITS/3 ML VIAL SC PRN (22:04)
[2018-01-31 05:06] LABS: #Basophils 0.1 thou/uL (0.0-0.2); #Eosinphils 0.5 thou/uL (0.0-0.7); #Lymphocytes 1.5 thou/uL (1.20-3.40); #Monocytes 0.7 thou/uL (0.11-0.59); #Neutrophils 5.4 thou/uL (1.40-6.50); %Basophils 0.7 % (0.0-1.0); %Eosinophils 5.9 % (0.0-10.0); %Lymphocytes 18.6 % (21.0-51.0); %Monocytes 8.5 % (0.0-10.0); %Neutrophils 66.3 % (42.0-75.0); Hemoglobin 8.6 g/dL (14.0-18.0); Mean Corpuscular HGB CONC 33.6 g/dL (32.0-36.0); Mean Corpuscular Hemoglobin 30.3 pg (27.0-31.0); Mean Corpuscular Volume 90.1 fl (80.0-94.0); Mean Platelet Volume 7.6 fL (7.4-10.4); Platelet Count 222 thou/uL (130-400); RBC Distribution Width 15.9 % (11.5-14.5); Red Blood Cell (RBC) Count 2.82 mill/uL (4.70-6.10); White Blood Cell (WBC) Count 8.1 thou/uL (4.8-10.8)
[2018-01-31] MEDS: Levothyroxine Sodium 100 MCG TAB PO SCH (05:20)
[2018-01-31] MEDS: HumaLOG 300 UNITS/3 ML VIAL SC PRN ×2 (05:20→13:07)
[2018-01-31] MEDS: Amlodipine 5 MG TAB PO SCH (08:10)
[2018-01-31] MEDS: Atorvastatin Calcium 20 MG TAB PO SCH (08:10)
[2018-01-31] MEDS: Docusate 100 MG CAP PO SCH (08:10)
[2018-01-31] MEDS: Lisinopril 20 MG TAB PO SCH (08:10)
[2018-01-31] MEDS: Aspirin 81 mg Enteric Coated Tablet PO SCH (08:10)
[2018-01-31] MEDS: Metoprolol Tartrate 100 MG TAB PO SCH (08:10)
[2018-01-31] MEDS: Finasteride 5 MG TAB PO SCH (08:11)
[2018-01-31] MEDS: Furosemide 80 MG TAB PO SCH (08:11)
[2018-01-31] MEDS: Potassium Chloride 20 MEQ TAB PO SCH (08:11)
[2018-01-31] MEDS: Tamsulosin HCl 0.4 MG CAP PO SCH (08:11)
[2018-01-31 11:20] VITALS: BP 140/63; TEMP 97.8
--- NOTE | 2018-01-31 12:00 | PDOC.EVN ---
Event Note - Event Note Event Note: DC SUMMARY #[id number]
--- NOTE | 2018-01-31 12:16 | DIS ---
DATE OF ADMISSION: 01/24/2018 DATE OF DISCHARGE: 01/31/2018 ADMITTING DIAGNOSES: 1. Gastrointestinal bleed. 2. History of hypertension. 3. History of hyperlipidemia. 4. History of coronary artery disease, status post history of CABG. 5. History of diabetes mellitus type 2. 6. History of atrial fibrillation. 7. History of hypothyroidism. 8. Obstructive sleep apnea. 9. Morbid obesity. DISCHARGE DIAGNOSES: 1. Gastrointestinal bleed, resolved. 2. History of hypertension. 3. Hyperlipidemia. 4. Coronary artery disease status post coronary artery bypass graft. 5. Diabetes mellitus type 2. 6. History of atrial fibrillation. 7. Hypothyroidism. 8. Obstructive sleep apnea. 9. Morbid obesity. HOSPITAL COURSE: This is an 82-year-old female, morbidly obese, admitted for GI bleed, was found to have severe significantly low hemoglobins. INR was checked and was found to be very high around 8. The patient was admitted to Internal Medicine. Cardiology was consulted as well as Gastroenterology. The patient had blood transfusions done as well. She had a nuclear medicine scan done during his h ospitalization stay. Nuclear Medicine Scan did show that there was an active source of bleeding cent ered around the mid ascending colon. The patient went through a colonoscopy as well during his stay. At the point in time of discharge, the patient's hemoglobin had gone up to 8.6, the day prior it wa s 6.9. The patient at the point in time of discharge was cleared by GI as well as Internal Medicine for discharge. The patient was to follow up with his PCP in 2-3 weeks as well as GI in 2-3 weeks. T nica all medications as directed and keep all appointments as requested. DISPOSITION: Home. MEDICATIONS: See MAR patient. Coumadin held, switched to Eliquis for now 60 day supply 30-day suppl y given 2.5 p.o. b.i.d. DIET: Low fat, low calorie, high fiber diet. CONDITION: Stable. PROGNOSIS: Guarded. ACTIVITY: As tolerated with assistance as appropriate. Case and plan discussed with the patient and family at length prior to discharge. They understand an d agree with this plan.
== END 2018-01-31 14:14 | disposition home or self-care (01) | DRG 378 ==
LOC: ERS 06:01 → T4-A 09:58
PROVIDERS: ADMIT Family Medicine; ATTEND Family Medicine
PROC: 0BH17EZ Insertion of Endotracheal Airway into Trachea, Via Natural or Artificial Opening (ICD-10-PCS; 2018-01-24)
PROC: 5A1945Z Respiratory Ventilation, 24-96 Consecutive Hours (ICD-10-PCS; 2018-01-24)
PROC: 30233K1 Transfusion of Nonautologous Frozen Plasma into Peripheral Vein, Percutaneous Approach (ICD-10-PCS; 2018-01-24)
PROC: 0DBK8ZX Excision of Ascending Colon, Via Natural or Artificial Opening Endoscopic, Diagnostic (ICD-10-PCS; principal; 2018-01-27)
PROC: 0DBP8ZX Excision of Rectum, Via Natural or Artificial Opening Endoscopic, Diagnostic (ICD-10-PCS; 2018-01-27)
PROC: 0DJ08ZZ Inspection of Upper Intestinal Tract, Via Natural or Artificial Opening Endoscopic (ICD-10-PCS; 2018-01-27)
PROC: 30233N1 Transfusion of Nonautologous Red Blood Cells into Peripheral Vein, Percutaneous Approach (ICD-10-PCS; 2018-01-28)
DX: K57.31 Diverticulosis of large intestine without perforation or abscess with bleeding (principal); Z68.41 Body mass index [BMI] 40.0-44.9, adult; D68.32 Hemorrhagic disorder due to extrinsic circulating anticoagulants; I50.32 Chronic diastolic (congestive) heart failure; D62 Acute posthemorrhagic anemia; I25.810 Atherosclerosis of coronary artery bypass graft(s) without angina pectoris; I11.0 Hypertensive heart disease with heart failure; E78.5 Hyperlipidemia, unspecified; E11.9 Type 2 diabetes mellitus without complications; G47.33 Obstructive sleep apnea (adult) (pediatric); E66.01 Morbid (severe) obesity due to excess calories; K64.8 Other hemorrhoids; I35.0 Nonrheumatic aortic (valve) stenosis; I48.2 Chronic atrial fibrillation; J44.9 Chronic obstructive pulmonary disease, unspecified; K63.5 Polyp of colon; E03.9 Hypothyroidism, unspecified; I25.2 Old myocardial infarction; T45.515A Adverse effect of anticoagulants, initial encounter; Z95.1 Presence of aortocoronary bypass graft; Z87.891 Personal history of nicotine dependence; Z79.4 Long term (current) use of insulin; Z79.01 Long term (current) use of anticoagulants; Z79.82 Long term (current) use of aspirin; Z95.0 Presence of cardiac pacemaker; Y92.009 Unspecified place in unspecified non-institutional (private) residence as the place of occurrence of the external cause
CPT/HCPCS: 36415; 36416; 36430; 78278; 80048; 80053; 85025; 85610; 85730; 86850; 86900; 86901; 88305; 96365; A4216; A9604; C9113; G8978-GP-CJ; G8979-GP-CJ; G8980-GP-CJ; G8987-GO-CI; G8988-GO-CI; G8989-GO-CI; J2001; J2704; J3430; J7050; P9016; P9059

== ENCOUNTER 2018-02-08 15:26 | Inpatient (IN) | payer MEDICARE ==
[2018-02-08 16:13] LABS: #Basophils 0.1 thou/uL (0.0-0.2); #Eosinphils 0.3 thou/uL (0.0-0.7); #Lymphocytes 1.5 thou/uL (1.20-3.40); #Monocytes 0.6 thou/uL (0.11-0.59); %Basophils 0.7 % (0.0-1.0); %Eosinophils 3.1 % (0.0-10.0); %Lymphocytes 17.5 % (21.0-51.0); %Monocytes 7.3 % (0.0-10.0); %Neutrophils 71.4 % (42.0-75.0); Mean Corpuscular HGB CONC 32.4 g/dL (32.0-36.0); Mean Corpuscular Hemoglobin 29.7 pg (27.0-31.0); Mean Corpuscular Volume 91.7 fl (80.0-94.0); Mean Platelet Volume 7.2 fL (7.4-10.4); Platelet Count 275 thou/uL (130-400); RBC Distribution Width 16.7 % (11.5-14.5); White Blood Cell (WBC) Count 8.5 thou/uL (4.8-10.8)
[2018-02-08 16:15] LABS: INR-International Normal Ratio 1.2; PTT 30.1 SEC (22.9-36.1); Prothrombin Time 14.9 SEC (12.0-14.7)
--- NOTE | 2018-02-08 16:21 | RAD ---
TWO VIEW CHEST SERIES: 02/08/18 INDICATION: Dizziness. COMPARISON: 07/11/12. FINDINGS: Redemonstration of a prominent cardiac silhouette with postoperative change of sternotomy. Left sided cardiac pacing device remains. There is no lobar consolidation, effusion or discrete pneumothorax. IMPRESSION: CHF. POS: [facility]
[2018-02-08 16:27] LABS: Anion Gap 11 mmol/L (10-20); BUN (Urea Nitrogen) 16 mg/dL (8.4-25.7); Calc. Creatinine Clearance 0 mL/min (70-130); Calcium 8.5 mg/dL (7.8-10.44); Carbon Dioxide 28 mmol/L (23-31); Chloride 108 mmol/L (98-107); Estimated GFR-MDRD 90; Glucose 149 mg/dL (83-110); Potassium 3.5 mmol/L (3.5-5.1); Sodium 143 mmol/L (136-145)
[2018-02-08 16:33] LABS: CKMB 0.9 ng/mL (0-6.6); Troponin I Less than 0.010 ng/mL (< 0.028)
[2018-02-08] MEDS ORDERED: Pantoprazole 40 MG VIAL ONE (16:54)
[2018-02-08 17:29] LABS: Bilirubin Negative (Negative); Blood, Urine Negative (Negative); Clarity CLEAR (Clear); Glucose, Urine (Dipstick) Negative (Negative); Leukocyte Negative (Negative); Nitrite Negative (Negative); Protein, Urine (Dipstick) Negative (Neg-Trace); Specific Gravity, Urine 1.016 (1.002-1.036); Urobilinogen 0.2 mg/dL (0.2-1.0)
[2018-02-08 17:52] VITALS: BMI 39.1
[2018-02-08] MEDS ORDERED: Dextrose 50% Abboject 50 ML SYRINGE SLOW IVP PRN (20:11)
[2018-02-08] MEDS ORDERED: Ondansetron HCl/PF 4 MG/2 ML Vial IVP PRN (20:11)
[2018-02-08] MEDS ORDERED: Ondansetron ODT 4 MG TAB PO PRN (20:11)
[2018-02-08] MEDS ORDERED: HumaLOG 300 UNITS/3 ML VIAL SC PRN (20:11)
[2018-02-08] MEDS ORDERED: Dextrose 5% in Water 1,000 ML IV PRN (20:11)
[2018-02-08] MEDS ORDERED: Acetaminophen 325 MG TAB PO PRN (20:11)
[2018-02-08] MEDS: Famotidine 20 MG TAB PO SCH (20:48)
[2018-02-08] MEDS: Metoprolol Tartrate 50 MG TAB PO SCH (20:49)
--- NOTE | 2018-02-08 22:48 | CON ---
DATE OF CONSULTATION: 02/08/2018 HISTORY OF PRESENT ILLNESS: The patient is an 82-year-old gentleman, well known to me from recent hospitalization here at [facility] for GI bleed. He was supratherapeut ic on his Coumadin. His Coumadin was stopped and he was reversed and subsequently underwent a colono scopy that showed some bloody effluent throughout the colon and two small polyps. He also had international accountant al hemorrhoids. EGD was normal. The patient continued to have some bleeding after this period of ti me and underwent a GI bleeding scan, this showed some abnormal tagged red cell scan findings in the m id ascending colon. Patient subsequently bleeding resolved, he was having small amounts of blood whe n he left the hospital. He said this continued up until about 4 days ago when he has not seen any mo re blood. He started Eliquis about 4-5 days ago. He has no abdominal pain, no nausea, vomiting, no diarrhea. PAST MEDICAL HISTORY: Significant for diabetes mellitus, hypertension, hyperlipidemia, coronary kierra ry disease, atrial fibrillation, previously on Coumadin, but now on Eliquis, hypothyroidism, sleep ap kae. PAST SURGICAL HISTORY: Includes coronary artery bypass, appendectomy, back surgery, ankle surgery. ALLERGIES: PENICILLIN. SOCIAL HISTORY: Does not smoke or drink. FAMILY HISTORY: Negative for GI or liver disease. MEDICATIONS: Include Zestril 20 mg p.o. daily, Norvasc 5 mg p.o. daily, aspirin 81 mg p.o. daily, in sulin, tamsulosin 0.4 mg p.o. daily, Lipitor 20 mg p.o. daily, metoprolol 75 mg p.o. daily, isosorbid e mononitrate 60 mg p.o. every day, levothyroxine 100 mcg p.o. daily, Lasix 80 mg p.o. daily, metform in 1 gram p.o. b.i.d., potassium chloride 20 mEq p.o. daily, finasteride 5 mg p.o. daily. REVIEW OF SYSTEMS: Ten systems were reviewed and were negative except for above. PHYSICAL EXAMINATION: GENERAL: Shows an overweight, pale male, in no acute distress. VITAL SIGNS: Temperature 98.3, pulse 80, respiratory rate 16, blood pressure 164/71. HEENT: Unremarkable. NECK: Supple. CHEST: Clear. CARDIOVASCULAR: Regular rate and rhythm without murmurs or gallops. ABDOMEN: Soft, nontender, without organomegaly or masses. Bowel sounds are present and normoactive. RECTAL: Deferred. EXTREMITIES: Normal. NEUROLOGIC: Nonfocal. LABORATORY: Shows a hemoglobin 8.6 when he left the hospital. Repeat today was 6.0. PT is 49 with an INR of 1.2. ASSESSMENT: Gastrointestinal bleed - this is probably leftover from his previous gastrointestinal bl eed as the patient continued to have bleeding when he went home. He has not had any blood in the [facility] that he has seen over the last 4-5 days. This includes starting some Eliquis. RECOMMENDATIONS: 1. Transfuse 1 unit packed RBCs. 2. Continue iron. 3. Okay to continue Eliquis at this point. 4. Close followup of hemoglobin and hematocrit as an outpatient.
[2018-02-09] MEDS: Sodium Chloride 0.9% 1,000 ML IV SCH ×2 (03:10→12:35)
[2018-02-09] MEDS: Levothyroxine Sodium 100 MCG TAB PO SCH (05:13)
[2018-02-09 06:15] LABS: #Basophils 0.1 thou/uL (0.0-0.2); #Eosinphils 0.4 thou/uL (0.0-0.7); #Lymphocytes 1.7 thou/uL (1.20-3.40); #Monocytes 0.6 thou/uL (0.11-0.59); #Neutrophils 4.9 thou/uL (1.40-6.50); %Basophils 0.7 % (0.0-1.0); %Eosinophils 4.9 % (0.0-10.0); %Monocytes 7.4 % (0.0-10.0); Hemoglobin 7.9 g/dL (14.0-18.0); Mean Corpuscular HGB CONC 33.1 g/dL (32.0-36.0); Mean Corpuscular Hemoglobin 29.9 pg (27.0-31.0); Mean Corpuscular Volume 90.5 fl (80.0-94.0); Mean Platelet Volume 7.1 fL (7.4-10.4); Platelet Count 250 thou/uL (130-400); RBC Distribution Width 15.5 % (11.5-14.5); Red Blood Cell (RBC) Count 2.63 mill/uL (4.70-6.10); White Blood Cell (WBC) Count 7.6 thou/uL (4.8-10.8)
[2018-02-09 06:33] LABS: Anion Gap 10 mmol/L (10-20); BUN (Urea Nitrogen) 12 mg/dL (8.4-25.7); Calc. Creatinine Clearance 110 mL/min (70-130); Calcium 8.2 mg/dL (7.8-10.44); Carbon Dioxide 26 mmol/L (23-31); Chloride 110 mmol/L (98-107); Estimated GFR-MDRD Greater than 90; Glucose 88 mg/dL (83-110); Potassium 3.3 mmol/L (3.5-5.1); Sodium 143 mmol/L (136-145)
[2018-02-09] MEDS ORDERED: Lisinopril 20 MG TAB PO SCH (10:00)
[2018-02-09] MEDS: Potassium Chloride 20 MEQ TAB PO SCH ×2 (10:42→12:36)
[2018-02-09] MEDS: Famotidine 20 MG TAB PO SCH ×2 (10:42→20:03)
[2018-02-09] MEDS: Finasteride 5 MG TAB PO SCH (10:42)
[2018-02-09] MEDS: Metoprolol Tartrate 50 MG TAB PO SCH ×2 (10:43→20:03)
[2018-02-09] MEDS: Tamsulosin HCl 0.4 MG CAP PO SCH (10:44)
--- NOTE | 2018-02-09 15:29 | PRG ---
DATE OF SERVICE: 02/09/2018 SUBJECTIVE: The patient has had multiple bloody bowel movements today. His last Eliquis was yesterd ay morning. He denies any abdominal pain or any hematemesis. OBJECTIVE: VITAL SIGNS: Temperature is 97.8, pulse 78, respiratory rate 18, blood pressure 154/93. HEENT: Unremarkable. CHEST: Clear. CARDIOVASCULAR: Regular rate and rhythm. ABDOMEN: Soft, nontender, without organomegaly or masses. LABORATORY DATA: Shows hemoglobin of 7.9, hematocrit 23.8. Recurrent lower gastrointestinal bleeding. It was unclear on his last colonoscopy with the bleeding source. He did have diverticula on the left side; however, the GI bleeding scan seemed to indicate t he ascending colon. He had bloody fluid throughout the colon. EGD at that time was normal. He did undergo a hot polypectomy snare. ASSESSMENT: 1. Recurrent gastrointestinal bleeding. 2. Anemia secondary to gastrointestinal blood loss. 3. Atrial fibrillation, previously on Coumadin and switched to Eliquis with his last Eliquis less th an 48 hours. 4. Left-sided diverticulosis coli. RECOMMENDATIONS: 1. Transfuse 1 unit packed RBCs. 2. Discontinue all anticoagulants at this point. 3. Serial H and H. 4. Consider cardiology opinion. 5. GI bleeding scan. 6. Repeat colonoscopy.
[2018-02-09] MEDS ORDERED: GoLYTELY 4,000 ml Bottle PO SCH (18:00)
[2018-02-09 19:16] LABS: Hemoglobin 8.5 g/dL (14.0-18.0)
--- NOTE | 2018-02-09 20:13 | NM ---
NUCLEAR MEDICINE GI BLEED 02/09/18 COMPARISON: 01/27/18 HISTORY: Bloody stools. TECHNIQUE: Patient administered 28 millicuries of technetium 99m tagged red blood cells intravenously. Imaging w as performed for 93 minutes. FINDINGS: Static and real time images demonstrate evidence of radiotracer localization in the right aspect of t he abdomen, in a similar location to the previous examination. Ascending colon gastrointestinal bleed is favored. IMPRESSION: Redemonstration of abnormal localization of radiotracer in the mid ascending colon. Active GI bleed i n this region is suspected. POS: [facility]
[2018-02-10 00:10] LABS: Hemoglobin 7.7 g/dL (14.0-18.0)
[2018-02-10] MEDS: Sodium Chloride 0.9% 1,000 ML IV SCH ×2 (03:07→09:30)
[2018-02-10] MEDS: Levothyroxine Sodium 100 MCG TAB PO SCH (05:14)
[2018-02-10 07:35] LABS: Hemoglobin 8.7 g/dL (14.0-18.0)
[2018-02-10] MEDS: Lisinopril 20 MG TAB PO SCH ×2 (09:22→20:18)
[2018-02-10] MEDS: Finasteride 5 MG TAB PO SCH (09:23)
[2018-02-10] MEDS: Tamsulosin HCl 0.4 MG CAP PO SCH (09:24)
[2018-02-10] MEDS: Famotidine 20 MG TAB PO SCH ×2 (09:24→20:16)
[2018-02-10] MEDS: Metoprolol Tartrate 50 MG TAB PO SCH ×2 (09:24→20:16)
--- NOTE | 2018-02-10 12:12 | PDOC.PN ---
- Subjective Encounter Start Date: 02/10/18 Encounter Start Time: 09:00 follow up for rectal bleeding, had another tagged scan yesterday with localization to mid ascening colon, again. No F/C, no n/V/D/C, no SOB, no new complaints For colonoscopy today All systems reviewed and neg x as per HPI - Objective Resuscitation Status: Resuscitation Status FULL:Full Resuscitation MAR Reviewed: Yes Vital Signs & Weight: Vital Signs (12 hours) Temp Pulse Resp BP BP BP Pulse Ox 02/10/18 09:22 168/74 H 02/10/18 08:41 99.1 F 74 12 168/74 H 92 L 02/10/18 08:00 99.1 F 74 12 02/10/18 04:15 98.0 F 77 22 H 175/79 H 93 L 02/10/18 01:43 93 L Weight Weight 200 lb 6 oz I&O: 02/09/18 02/10/18 02/11/18 06:59 06:59 06:59 Intake Total 1210 6281 Output Total 450 Balance 760 6281 Result Diagrams: 02/10/18 07:13 02/09/18 05:35 Additional Labs: Accuchecks 02/10/18 02/09/18 05:18 20:05 POC Glucose 133 H 207 H Radiology Reviewed by me: Yes EKG Reviewed by me: Yes Phys Exam - Physical Examination Constitutional: NAD HEENT: PERRLA, moist MMs, sclera anicteric, oral pharynx no lesions Neck: no nodes, no JVD, supple, full ROM Respiratory: no wheezing, no rales, no rhonchi, clear to auscultation bilateral Cardiovascular: RRR, no significant murmur Gastrointestinal: soft, non-tender, no distention, positive bowel sounds Musculoskeletal: pulses present, edema present Neurological: non-focal, normal sensation, moves all 4 limbs Lymphatic: no nodes Psychiatric: normal affect, A&O x 3 Skin: no rash, normal turgor, cap refill <2 seconds Dx/Plan (1) LGI bleed Code(s): K92.2 - GASTROINTESTINAL HEMORRHAGE, UNSPECIFIED Status: Acute Comment: colonoscopy today, follow up GI findings (2) Acute blood loss anemia Code(s): D62 - ACUTE POSTHEMORRHAGIC ANEMIA Status: Acute Comment: got 1 unit prbc 01/28 (3) Atrial fibrillation Code(s): I48.91 - UNSPECIFIED ATRIAL FIBRILLATION Status: Chronic (4) CAD (coronary artery disease) Code(s): I25.10 - ATHSCL HEART DISEASE OF [place] CORONARY ARTERY W/O ANG PCTRS Status: Chronic Qualifiers: Coronary Disease-Associated Artery/Lesion type: bypass graft [place] vs. transplanted heart: [place] heart Associated angina: without angina Qualified Code(s): I25.810 - Atherosclerosis of coronary artery bypass graft(s) without angina pectoris (5) Chronic anemia Code(s): D64.9 - ANEMIA, UNSPECIFIED Status: Chronic (6) Chronic obstructive lung disease Code(s): J44.9 - CHRONIC OBSTRUCTIVE PULMONARY DISEASE, UNSPECIFIED Status: Chronic (7) Diabetes mellitus Code(s): E11.9 - TYPE 2 DIABETES MELLITUS WITHOUT COMPLICATIONS Status: Chronic (8) HTN (hypertension) Code(s): I10 - ESSENTIAL (PRIMARY) HYPERTENSION Status: Chronic Qualifiers: Hypertension type: essential hypertension Qualified Code(s): I10 - Essential (primary) hypertension (9) Hypothyroidism Code(s): E03.9 - HYPOTHYROIDISM, UNSPECIFIED Status: Chronic Qualifiers: Hypothyroidism type: unspecified Qualified Code(s): E03.9 - Hypothyroidism , unspecified (10) Obesity Code(s): E66.9 - OBESITY, UNSPECIFIED Status: Chronic Qualifiers: Obesity classification: adult class 3 (BMI >= 40) Body mass index: BMI 40.0 -44.9 - Plan cont current plan of care, PT/OT, respiratory therapy, out of bed/ambulate * .
--- NOTE | 2018-02-10 12:26 | OP ---
DATE OF PROCEDURE: 02/10/2018 SURGEON: Dat Frias M.D. PROCEDURE: Colonoscopy to control bleeding. PREPROCEDURE DIAGNOSES: 1. Recurrent lower GI bleeding complicated by chronic anticoagulation therapy. 2. Tagged red blood cell scan showed bleeding in the right colon. POST-PROCEDURE DIAGNOSES: 1. Diverticulosis coli throughout the colon with old blood scattered throughout the colon. 2. Small AVM or even more like just a punctate bleeding site identified in the right colon with acti ve mild arterial bleeding. The remainder of the colon was evaluated. No other lesions were found. The ileum was entered and no lesions were found. 3. The lesion was again located still oozing and ablated with argon plasma coagulation on right colo n settings. RECOMMENDATIONS: 1. Follow H&H. 2. Wait 5 days before resuming anticoagulation. PROCEDURE IN DETAIL: After the patient was informed of the risks, benefits, possible complications o f endoscopy including perforation, bleeding, reaction to medication and aspiration, informed consent was obtained. The patient brought to the endoscopy suite where he was sedated in a gradual fashion. Once he was comfortable, a rectal exam was performed. The endoscope was advanced in the anal canal, through the colon to the cecum which was identified by the ileocecal valve and appendiceal orifice. The terminal ileum was ultimately entered. Examination was difficult due to body habitus. He was r olled on his back and pressure was used to reach the cecum. There was some old blood scattered throu ghout the colon. This was irrigated away to the best of our ability, probably used about a liter of irrigating solution. Ultimately a bleeding site was found, like a pinpoint oozing area in the right colon. It was not a typical appearing AVM, irrigating away it tended to bleed in a very slow pulsati le fashion consistent with arterial bleeding. The remainder of the colon was evaluated again. No le sions were seen. This was still bleeding. It was ablated with argon plasma coagulation. Retroflexi on in the rectum was normal. The scope was removed. The patient tolerated the procedure well with n o complications.
[2018-02-10] MEDS ORDERED: Promethazine HCl 25 MG/ML VIAL IM PRN (12:39)
[2018-02-10] MEDS ORDERED: Promethazine HCl 25 MG/ML VIAL SLOW IVP PRN (12:39)
[2018-02-10] MEDS ORDERED: Ondansetron HCl/PF 4 MG/2 ML Vial IVP PRN (12:39)
[2018-02-10] MEDS ORDERED: Lidocaine 1% PF 5 ML VIAL ONE (17:36)
[2018-02-11] MEDS: Levothyroxine Sodium 100 MCG TAB PO SCH (04:27)
[2018-02-11 04:55] LABS: #Eosinphils 0.4 thou/uL (0.0-0.7); #Lymphocytes 0.8 thou/uL (1.20-3.40); #Monocytes 0.4 thou/uL (0.11-0.59); #Neutrophils 4.8 thou/uL (1.40-6.50); %Basophils 0.6 % (0.0-1.0); %Eosinophils 6.5 % (0.0-10.0); %Lymphocytes 12.5 % (21.0-51.0); %Monocytes 6.7 % (0.0-10.0); %Neutrophils 73.7 % (42.0-75.0); Hemoglobin 7.2 g/dL (14.0-18.0); Mean Corpuscular Hemoglobin 29.2 pg (27.0-31.0); Mean Corpuscular Volume 91.2 fl (80.0-94.0); Mean Platelet Volume 6.8 fL (7.4-10.4); Platelet Count 237 thou/uL (130-400); RBC Distribution Width 15.3 % (11.5-14.5); Red Blood Cell (RBC) Count 2.46 mill/uL (4.70-6.10); White Blood Cell (WBC) Count 6.5 thou/uL (4.8-10.8)
[2018-02-11 04:58] LABS: Hemoglobin 7.2 g/dL (14.0-18.0)
[2018-02-11 05:18] LABS: Anion Gap 9 mmol/L (10-20); BUN (Urea Nitrogen) 7 mg/dL (8.4-25.7); Calc. Creatinine Clearance 107 mL/min (70-130); Calcium 8.1 mg/dL (7.8-10.44); Carbon Dioxide 27 mmol/L (23-31); Chloride 109 mmol/L (98-107); Estimated GFR-MDRD Greater than 90; Glucose 119 mg/dL (83-110); Magnesium 1.9 mg/dL (1.6-2.6); Potassium 3.6 mmol/L (3.5-5.1); Sodium 141 mmol/L (136-145)
[2018-02-11] MEDS: Famotidine 20 MG TAB PO SCH ×2 (08:36→20:24)
[2018-02-11] MEDS: Lisinopril 20 MG TAB PO SCH ×2 (08:36→20:24)
[2018-02-11] MEDS: Tamsulosin HCl 0.4 MG CAP PO SCH (08:37)
[2018-02-11] MEDS: Finasteride 5 MG TAB PO SCH (08:37)
[2018-02-11] MEDS: Metoprolol Tartrate 50 MG TAB PO SCH ×2 (08:37→20:24)
--- NOTE | 2018-02-11 13:57 | PDOC.PN ---
- Subjective Encounter Start Date: 02/11/18 Encounter Start Time: 10:00 Patient seen and examined for Anemia/GI bleeding. Feels better. No new GI bleeding. No overnight events - Objective MAR Reviewed: Yes Vital Signs & Weight: Vital Signs (12 hours) Temp Pulse Pulse Resp BP BP Pulse Ox 02/11/18 13:10 98.4 F 68 18 159/65 H 100 02/11/18 11:45 98.4 F 67 18 168/81 H 98 02/11/18 10:39 98.7 F 60 16 132/63 02/11/18 10:20 98.7 F 69 18 170/72 H 92 L I&O: 02/10/18 02/11/18 02/12/18 06:59 06:59 06:59 Intake Total 350 Balance 350 Result Diagrams: 02/11/18 04:18 02/11/18 04:18 Additional Labs: Accuchecks 02/11/18 10:51 POC Glucose 240 H Phys Exam - Physical Examination Constitutional: NAD Respiratory: no wheezing, no rhonchi Cardiovascular: RRR, no rub Gastrointestinal: soft, non-tender, positive bowel sounds Musculoskeletal: no edema Neurological: moves all 4 limbs Dx/Plan (1) LGI bleed Code(s): K92.2 - GASTROINTESTINAL HEMORRHAGE, UNSPECIFIED Status: Acute Comment: s/p colonoscopy (2) Acute blood loss anemia Code(s): D62 - ACUTE POSTHEMORRHAGIC ANEMIA Status: Acute (3) HTN (hypertension) Code(s): I10 - ESSENTIAL (PRIMARY) HYPERTENSION Status: Chronic (4) DM2 (diabetes mellitus, type 2) Status: Chronic (5) Chronic a-fib Code(s): I48.2 - CHRONIC ATRIAL FIBRILLATION Status: Chronic Comment: Eliquis on hold (6) CAD (coronary artery disease) Code(s): I25.10 - ATHSCL HEART DISEASE OF [place] CORONARY ARTERY W/O ANG PCTRS Status: Chronic (7) Obesity (BMI 30-39.9) Code(s): E66.9 - OBESITY, UNSPECIFIED Status: Chronic (8) BPH (benign prostatic hyperplasia) Code(s): N40.0 - BENIGN PROSTATIC HYPERPLASIA WITHOUT LOWER URINRY TRACT SYMP Status: Acute - Plan DVT proph w/SCDs Change to inpt, transfuse 1 unit PRBC due to drop in HH from 8.7 to 7.2 -: HH in AM -: Cont Lisinopril, Metoprolol, Imdur and other meds as below -: Cont to monitor -: Cont sliding scale Review of Systems - Review of Systems Respiratory: negative: Cough, Dry, Shortness of Breath, Hemoptysis, SOB with Excertion, Pleuritic Pain, Sputum, Wheezing Cardiovascular: negative: chest pain, palpitations, orthopnea, paroxysmal nocturnal dyspnea, edema, light headedness, other - Medications/Allergies Allergies/Adverse Reactions: Allergies Allergy/AdvReac Type Severity Reaction Status Date / Time Penicillins Allergy Verified 02/08/18 17:49 Medications: Current Medications Acetaminophen (Tylenol) 650 mg PO Q4H PRN PRN Reason: Headache/Fever or Pain Last Admin: 02/09/18 05:16 Dose: 650 mg Dextrose/Water (Dextrose 50%) 25 gm SLOW IVP PRN PRN PRN Reason: Hypoglycemia Famotidine (Pepcid) 20 mg PO BID [facility] Last Admin: 02/11/18 08:36 Dose: 20 mg Finasteride (Proscar) 5 mg PO DAILY [facility] Last Admin: 02/11/18 08:37 Dose: 5 mg Glucagon (Glucagon) 1 mg IM PRN PRN PRN Reason: Hypoglycemia Dextrose/Water (D5w) 1,000 mls @ 0 mls/hr IV .Q0M PRN; As Directed PRN Reason: Hypoglycemia Insulin Human Lispro (Humalog) 0 units SC .MILD SLIDING SCALE PRN PRN Reason: Mild Correctional Scale Insulin Human Lispro (Humalog) 0 units SC .BEDTIME SLIDING SC PRN PRN Reason: Bedtime Correctional Scale Isosorbide Mononitrate (Imdur) 60 mg PO DAILY [facility] Last Admin: 02/11/18 08:37 Dose: 60 mg Levothyroxine Sodium (Synthroid) 100 mcg PO 0600 [facility] Last Admin: 02/11/18 04:27 Dose: 100 mcg Lisinopril (Zestril) 20 mg PO BID [facility] Last Admin: 02/11/18 08:36 Dose: 20 mg Metoprolol Tartrate (Lopressor) 75 mg PO BID [facility] Last Admin: 02/11/18 08:37 Dose: 75 mg Ondansetron HCl (Zofran Odt) 4 mg PO Q6H PRN PRN Reason: Nausea/Vomiting Ondansetron HCl (Zofran) 4 mg IVP Q6H PRN PRN Reason: Nausea/Vomiting Sodium Chloride (Flush - Normal Saline) 10 ml IVF Q12HR [facility] Last Admin: 02/11/18 08:37 Dose: 10 ml Sodium Chloride (Flush - Normal Saline) 10 ml IVF PRN PRN PRN Reason: Saline Flush Tamsulosin HCl (Flomax) 0.4 mg PO DAILY [facility] Last Admin: 02/11/18 08:37 Dose: 0.4 mg
[2018-02-11] MEDS: HumaLOG 300 UNITS/3 ML VIAL SC PRN (17:30)
--- NOTE | 2018-02-11 18:49 | PRG ---
DATE OF SERVICE: 02/11/2018 SUBJECTIVE: Mr. Malloy has had no further bleeding. He is on a regular diet. He denies any short ness of breath, chest pain, abdominal pain. PHYSICAL EXAMINATION: VITAL SIGNS: Temperature is 98, respirations 18, pulse 68, blood pressure 159/65. LUNGS: Clear. HEART: Regular rate and rhythm without clicks or murmurs. ABDOMEN: Nontender. LABORATORY STUDIES: Hemoglobin 7.2, it was 8.7 yesterday morning 7.7. He was given 1 unit of blood today for hemoglobin of 7.2. INR 1.2 on 02/08/2018. Sodium 141, potassium 3.6, chloride 109, bicarb vivi 27, BUN and creatinine 70 and 0.75. ASSESSMENT: 1. Lower gastrointestinal bleeding in right colon from small arteriovenous malformation, cauterized yesterday. 2. Anemia, symptomatic. Agree with transfusion. 3. Patient had been on chronic anticoagulation in the past for atrial fibrillation. RECOMMENDATIONS: If the patient has no further bleeding and stable hemoglobin, he can go home tomorr ow. Hold anticoagulation for 5 days.
[2018-02-12 04:47] LABS: Hemoglobin 8.3 g/dL (14.0-18.0); Platelet Count 210 thou/uL (130-400)
[2018-02-12] MEDS: Levothyroxine Sodium 100 MCG TAB PO SCH (05:17)
[2018-02-12 07:27] VITALS: BP 196/79; TEMP 98.1
[2018-02-12] MEDS: Famotidine 20 MG TAB PO SCH (07:28)
[2018-02-12] MEDS: Lisinopril 20 MG TAB PO SCH (07:28)
[2018-02-12] MEDS: Finasteride 5 MG TAB PO SCH (07:28)
[2018-02-12] MEDS: Metoprolol Tartrate 50 MG TAB PO SCH (07:28)
[2018-02-12] MEDS: Tamsulosin HCl 0.4 MG CAP PO SCH (07:29)
[2018-02-12] MEDS: HumaLOG 300 UNITS/3 ML VIAL SC PRN (12:16)
--- NOTE | 2018-02-12 13:11 | PRG ---
DATE OF SERVICE: 02/12/2018 SUBJECTIVE: Mr. Malloy has had no further bleeding. He has had a bowel movement, which is brown, I looked at it. He denies any pain. OBJECTIVE: VITAL SIGNS: Temperature is 98, pulse 74, blood pressure 196/79. LUNGS: Clear. HEART: Regular rate and rhythm. ABDOMEN: Nontender. LABORATORY STUDIES: Hemoglobin is 8.3 after 1 unit of blood yesterday. ASSESSMENT: Lower gastrointestinal bleeding from AVM in the right colon cauterized. At this point i n time, seems his bleeding has resolved. I think he can go home today. Follow up with his PCP in outpatient for recheck hemoglobin in a week, given him iron once a day would be reasonable. At thi s time, I will go and sign off. If I can be any further assistance in his hospitalization, please do not hesitate to contact me.
--- NOTE | 2018-02-12 16:32 | DIS ---
DATE OF DISCHARGE: 02/12/2018 DISCHARGE DISPOSITION: Home. FOLLOWUP: Follow up with primary care physician, Dr. Israel Mendes next week. Follow up with gastroe nterology clinic in the next 1-2 weeks. BRIEF HOSPITAL COURSE: The patient was advised to check his hemoglobin after 4 days. He may restart the Eliquis if his hemoglobin is stable per GI. He was advised to take over the counter iron supple mentation. The patient was seen and examined on the day of discharge. Denies any new complaints. No chest pain , shortness of breath or palpitations. SIGNIFICANT LABORATORIES: 1. H&H on the day of discharge is 8.3, on admission was 6.0. 2. Potassium 3.3, replaced. 3. Troponins were negative. 4. Stool for occult blood was positive. INPATIENT PROCEDURES: On 02/20/2018, the patient underwent colonoscopy, it showed small AVMs in the right colon with active bleeding. It also showed diverticulosis coli throughout the colon with old b lood scattered throughout the colon. BRIEF HOSPITAL COURSE: The patient is an 82-year-old male with recent hospitalization for GI bleedin g secondary to supratherapeutic INR, who presented to the hospital with lower GI bleeding. Please re hayley to the history and physical for further details. The patient was admitted to the hospital with a diagnosis of GI bleeding. He received a total of 3 u nits PRBC for hemoglobin of 6.0. His hemoglobin on the day of discharge is 8.3. He also underwent c olonoscopy with control of bleeding. He has been cleared by Gastroenterology for discharge. He was advised to resume anticoagulation after 5 days if his hemoglobin stays stable per Gastroenterology. FINAL DIAGNOSES: 1. 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 2. History of gastrointestinal bleeding last month due to supratherapeutic INR. 3. Anemia due to gastrointestinal blood loss. 4. Hypertension. 5. Hyperlipidemia. 6. Hypokalemia. 7. Coronary artery disease, status post coronary artery bypass grafting. 8. Diabetes mellitus type 2. 9. History of atrial fibrillation. 10. Hypothyroidism. 11. Obstructive sleep apnea. 12. Obesity with a BMI 39.1. Plan of care was discussed with the patient in detail. He stated understanding.
== END 2018-02-12 14:35 | disposition home or self-care (01) | DRG 378 ==
LOC: ERS 15:26 → 2SW 16:42 → OBSVTOIN 02-11 09:30 → T4-A 02-11 11:42
PROVIDERS: ADMIT Internal Medicine Infectious Disease; ATTEND Internal Medicine Infectious Disease
PROC: 0W3P8ZZ Control Bleeding in Gastrointestinal Tract, Via Natural or Artificial Opening Endoscopic (ICD-10-PCS; principal; 2018-02-11)
PROC: 30233N1 Transfusion of Nonautologous Red Blood Cells into Peripheral Vein, Percutaneous Approach (ICD-10-PCS; 2018-02-11)
DX: K55.21 Angiodysplasia of colon with hemorrhage (principal); D62 Acute posthemorrhagic anemia; E11.9 Type 2 diabetes mellitus without complications; I48.2 Chronic atrial fibrillation; I25.10 Atherosclerotic heart disease of native coronary artery without angina pectoris; E66.9 Obesity, unspecified; N40.0 Benign prostatic hyperplasia without lower urinary tract symptoms; J44.9 Chronic obstructive pulmonary disease, unspecified; E03.9 Hypothyroidism, unspecified; K57.31 Diverticulosis of large intestine without perforation or abscess with bleeding; I10 Essential (primary) hypertension; E78.5 Hyperlipidemia, unspecified; E87.6 Hypokalemia; G47.33 Obstructive sleep apnea (adult) (pediatric); Z68.39 Body mass index [BMI] 39.0-39.9, adult; Z79.01 Long term (current) use of anticoagulants; Z79.82 Long term (current) use of aspirin; Z79.4 Long term (current) use of insulin; Z95.1 Presence of aortocoronary bypass graft
CPT/HCPCS: 36415; 36416; 36430; 71046; 78278; 80048; 81003; 82274; 82553; 83735; 84484; 85014; 85018; 85025; 85049; 85610; 85730; 86850; 86900; 86901; 93005; 96361; 96374; A4216; A9604; C9113; J2001; P9016

== ENCOUNTER 2018-06-28 10:20 | Outpatient (CLI) | payer MEDICARE ==
[2018-06-28 11:19] LABS: ALT (SGPT) 9 U/L (8-55); AST (SGOT) 15 U/L (5-34); Albumin 3.9 g/dL (3.4-4.8); Alkaline Phosphatase 85 U/L (40-150); Bilirubin, Direct 0.3 mg/dL (0.1-0.3); Bilirubin, Total 0.7 mg/dL (0.2-1.2); Protein, Total 7.8 g/dL (5.8-8.1)
--- NOTE | 2018-06-28 12:15 | RAD ---
ABDOMEN TWO VIEWS: History: 83-year-old male with history of R10.13, R19.7 - midabdominal pain for four days with some left sided abdominal repair secondary to bleeding many years ago. Comparison: 06-16-09 FINDINGS: No evidence for free intraperitoneal air. Post underlying sternotomy and coronary artery bypass patel es and ICD. Evidence for laminectomy at L4 and L5. No evidence for large or small bowel obstruction. No overt calculus. IMPRESSION: Unremarkable flat and upright abdomen. POS: DASHAWN
[2018-06-28 12:27] LABS: #Eosinphils 0.2 thou/uL (0.0-0.7); #Lymphocytes 1.3 thou/uL (1.20-3.40); #Monocytes 0.7 thou/uL (0.11-0.59); #Neutrophils 6.4 thou/uL (1.40-6.50); %Basophils 0.5 % (0.0-1.0); %Eosinophils 2.9 % (0.0-10.0); %Lymphocytes 14.6 % (21.0-51.0); %Monocytes 7.5 % (0.0-10.0); %Neutrophils 74.5 % (42.0-75.0); Hemoglobin 11.8 g/dL (14.0-18.0); Mean Corpuscular HGB CONC 31.3 g/dL (32.0-36.0); Mean Corpuscular Hemoglobin 26.4 pg (27.0-31.0); Mean Corpuscular Volume 84.4 fL (78.0-98.0); Mean Platelet Volume 7.8 fL (7.4-10.4); Platelet Count 212 thou/uL (130-400); RBC Distribution Width 16.1 % (11.5-14.5); Red Blood Cell (RBC) Count 4.45 mill/uL (4.70-6.10); White Blood Cell (WBC) Count 8.6 thou/uL (4.8-10.8)
== END 2018-06-28 10:21 | disposition home or self-care (01) ==
LOC: SCSRAD 10:20
PROVIDERS: ATTEND Family Medicine
DX: R10.13 Epigastric pain (principal); R19.7 Diarrhea, unspecified
CPT/HCPCS: 36415; 74019; 80076; 85025

== ENCOUNTER 2018-09-17 13:15 | Emergency (ER) | payer MEDICARE ==
[~2018-09-17 13:15] MED LIST: ISOVUE-370 76%-LOCM 1 ML ONE
[2018-09-17 14:11] LABS: #Eosinphils 0.1 thou/uL (0.0-0.7); #Lymphocytes 0.8 thou/uL (1.20-3.40); #Monocytes 0.8 thou/uL (0.11-0.59); #Neutrophils 11.7 thou/uL (1.40-6.50); %Basophils 0.2 % (0.0-1.0); %Eosinophils 0.5 % (0.0-10.0); %Monocytes 5.6 % (0.0-10.0); %Neutrophils 87.7 % (42.0-75.0); Hemoglobin 12.9 g/dL (14.0-18.0); Mean Corpuscular HGB CONC 33.5 g/dL (32.0-36.0); Mean Corpuscular Volume 89.5 fL (78.0-98.0); Mean Platelet Volume 7.7 fL (7.4-10.4); Platelet Count 222 thou/uL (130-400); RBC Distribution Width 14.4 % (11.5-14.5); White Blood Cell (WBC) Count 13.4 thou/uL (4.8-10.8)
[2018-09-17 14:32] LABS: ALT (SGPT) 9 U/L (8-55); AST (SGOT) 13 U/L (5-34); Albumin 3.8 g/dL (3.4-4.8); Alkaline Phosphatase 85 U/L (40-150); Anion Gap 16 mmol/L (10-20); BUN (Urea Nitrogen) 13 mg/dL (8.4-25.7); CK (CPK) 58 U/L (30-200); Calc. Creatinine Clearance 0 mL/min (70-130); Calcium 9.3 mg/dL (7.8-10.44); Carbon Dioxide 23 mmol/L (23-31); Chloride 102 mmol/L (98-107); Estimated GFR-MDRD 90; Globulin 3.9 g/dL (2.4-3.5); Glucose 99 mg/dL (83-110); Potassium 3.5 mmol/L (3.5-5.1); Protein, Total 7.7 g/dL (5.8-8.1); Sodium 137 mmol/L (136-145)
--- NOTE | 2018-09-17 15:12 | CT ---
CT ANGIOGRAM OF HEAD: DATE: 09/17/2018. HISTORY: Dizziness. TECHNIQUE: Axial CT imaging at 5 mm intervals from the vertex through the skull base without contrast. Then, se rial axial CT imaging is obtained at 1.25 mm intervals from the skull base through the vertex with IV contrast using a CT angiogram protocol. Coronal and sagittal 3D reformatted imaging obtained. FINDINGS: Noncontrast-enhanced head CT demonstrates no intracranial hemorrhage, midline shift, mass effect, or ventricular enlargement. The imaged paranasal sinuses and mastoid air cells are well aerated. There is no displaced calvarial fracture. There is atherosclerotic calcification of the cavernous carotid arteries and the distal r ight vertebral artery. Postcontrast imaging demonstrates patency of bilateral distal vertebral arteries. There is atheroscl erotic calcification involving the distal aspect of the bilateral vertebral arteries at the axial lev el of the foramen magnum. There is mild stenosis involving bilateral vertebral arteries at this leve l. The basilar artery is patent and grossly normal in caliber with patency of bilateral posterior cerebr al arteries noted. Mild scattered areas of stenosis seen involving the distal aspect of the left pos terior cerebral artery. There is no sacular aneurysm, high-grade stenosis, or vascular occlusion inv olving the posterior circulation. The imaged extracranial internal carotid artery is patent bilaterally. There is a moderate degree of stenosis involving the internal carotid artery on the right at the junction of the petrous segment a nd the cavernous segment, best seen on axial image 40. The A1 segment is hypoplastic and/or aplastic on the right. Bilateral anterior cerebral arteries katarzyna ear patent. The M1 segment is patent bilaterally. The MCA bifurcation and the distal MCA branches appear grossly unremarkable with no high-grade stenosis, vascular occlusion, or sacular aneurysm seen involving the anterior circulation. IMPRESSION: 1. Noncontrast-enhanced head CT demonstrates no intracranial hemorrhage, midline shift, or mass effe ct. 2. CT angiogram demonstrates no central arterial occlusion. If there is clinical concern for an acu te infarction, brain MRI recommended. POS: DASHAWN
== END 2018-09-17 16:00 | disposition home or self-care (01) ==
LOC: ERS 13:15
DX: R42 Dizziness and giddiness (principal); E11.9 Type 2 diabetes mellitus without complications; I10 Essential (primary) hypertension; Z87.891 Personal history of nicotine dependence; W19.XXXA Unspecified fall, initial encounter
CPT/HCPCS: 36415; 70496; 80053; 82550; 83930; 84484; 85025; 93005

== ENCOUNTER 2019-07-04 00:49 | Inpatient (IN) | payer MEDICARE ==
[2019-07-04] MEDS ORDERED: Acetaminophen 500 MG TAB ONE (01:01)
[2019-07-04 01:18] LABS: #Eosinphils 0.1 thou/uL (0.0-0.7); #Lymphocytes 0.9 thou/uL (1.20-3.40); #Neutrophils 15.4 thou/uL (1.40-6.50); %Basophils 0.1 % (0.0-1.0); %Eosinophils 0.9 % (0.0-10.0); %Lymphocytes 5.3 % (21.0-51.0); %Monocytes 5.6 % (0.0-10.0); %Neutrophils 88.1 % (42.0-75.0); Hemoglobin 13.1 g/dL (14.0-18.0); Mean Corpuscular HGB CONC 33.5 g/dL (32.0-36.0); Mean Corpuscular Hemoglobin 30.4 pg (27.0-31.0); Mean Corpuscular Volume 90.9 fL (78.0-98.0); Mean Platelet Volume 7.9 fL (7.4-10.4); Platelet Count 200 thou/uL (130-400); Red Blood Cell (RBC) Count 4.31 mill/uL (4.70-6.10); White Blood Cell (WBC) Count 17.5 thou/uL (4.8-10.8)
[2019-07-04] MEDS ORDERED: Clindamycin/D5W 900 mg/50 ml Premix Bag ONE ×2 (01:21→02:16)
[2019-07-04] MEDS ORDERED: Cefepime 2 GM VIAL ONE (01:21)
[2019-07-04 01:38] LABS: ALT (SGPT) 13 U/L (8-55); AST (SGOT) 14 U/L (5-34); Albumin 4.1 g/dL (3.4-4.8); Alkaline Phosphatase 92 U/L (40-110); Anion Gap 12 mmol/L (10-20); BUN (Urea Nitrogen) 18 mg/dL (8.4-25.7); Bilirubin, Total 0.8 mg/dL (0.2-1.2); Calc. Creatinine Clearance 0 mL/min (70-130); Carbon Dioxide 28 mmol/L (23-31); Chloride 102 mmol/L (98-107); Estimated GFR-MDRD 90; Globulin 3.5 g/dL (2.4-3.5); Glucose 109 mg/dL (83-110); Potassium 3.6 mmol/L (3.5-5.1); Protein, Total 7.6 g/dL (5.8-8.1); Sodium 138 mmol/L (136-145)
[2019-07-04 02:08] LABS: Bilirubin Negative (Negative); Blood, Urine Trace (Negative); Glucose, Urine (Dipstick) Negative (Negative); Leukocyte Negative (Negative); Nitrite Negative (Negative); Protein, Urine (Dipstick) > or equal to 300 mg/dL (Neg-Trace)
[2019-07-04 02:12] LABS: Clarity Clear (Clear)
[2019-07-04 02:20] LABS: Bacteria/HPF None Seen HPF (None Seen); RBC/HPF 0-3 HPF (0-3); Squamous Epithelial 0-3 HPF (0-3); WBC/HPF 0-3 HPF (0-3)
[2019-07-04] MEDS ORDERED: Acetaminophen 325 MG TAB PO PRN ×2 (05:09→08:34)
[2019-07-04] MEDS ORDERED: Ondansetron PF 4 MG/2 ML Vial IVP PRN (05:09)
[2019-07-04] MEDS ORDERED: Ondansetron ODT 4 MG TAB SL PRN (05:09)
[2019-07-04] MEDS ORDERED: HYDROcodone/Acetaminophen 5/325 mg Tablet PO PRN ×3 (05:09→08:34)
[2019-07-04 05:43] LABS: Lactic Acid 1.1 mmol/L (0.5-2.2)
[2019-07-04 05:46] VITALS: BMI 39.2
[2019-07-04] MEDS ORDERED: HumaLOG 300 UNITS/3 ML VIAL SC PRN (08:34)
[2019-07-04] MEDS ORDERED: Dextrose 50% Abboject 50 ML SYRINGE SLOW IVP PRN (08:34)
[2019-07-04] MEDS ORDERED: Ondansetron ODT 4 MG TAB PO PRN (08:34)
[2019-07-04] MEDS ORDERED: Dextrose 5% in Water 1,000 ML IV PRN (08:34)
[2019-07-04] MEDS ORDERED: Zolpidem Tartrate 5 MG TAB PO PRN (08:34)
[2019-07-04] MEDS ORDERED: Non-Formulary Item 1 EACH (Sitagliptin Phos/Metformin Hcl [Janumet] 1 TABLET) PO SCH (09:00)
[2019-07-04] MEDS ORDERED: INSULIN DETEMIR 38 UNIT SQ SCH (09:00)
--- NOTE | 2019-07-04 09:09 | HP ---
PRIMARY CARE PHYSICIAN: Israel Mendes MD HISTORY OF PRESENT ILLNESS: [facility] sepsis and cellulitis. The patient was seen and interviewed. He complains of fever for 2 days, not documented, pain in his left calf with redness in his left calf, some ataxia, some confusion, dizziness. He presented to the emergency room and was referred to the [email or web address] Service for cellulitis of left lower extremity and sepsis syndrome. PAST MEDICAL HISTORY: Pertinent for coronary artery disease post coronary artery bypass graft in the past, diabetes mellitus type 2, hypertension, pacemaker implantation, and lumbar spine surgery. CURRENT MEDICINES: 1. Levemir 38 units subcutaneous twice a day. 2. Levothyroxine 100 mcg a day. 3. Imdur 30 mg a day. 4. Proscar 5 mg a day. 5. Metoprolol 75 mg twice a day. 6. Lipitor 20 mg a day. 7. Aspirin 81 mg a day. 8. Lasix 80 mg a day. 9. Potassium chloride 20 mEq twice a day. 10. Sitagliptin metformin twice a day. 11. Flomax 0.4 mg a day. ALLERGIES: PENICILLINS. SOCIAL HISTORY: . at bedside. Full code status. , next of kin. No tobacco. No alcohol in decades. FAMILY HISTORY: No inheritable diseases. REVIEW OF SYSTEMS: CONSTITUTIONAL: Some dizziness with present illness. No fainting. No sweats or chills. He has had fever. EYES: No double vision, blurred vision, or flashing lights. EAR, NOSE AND THROAT: No ear pain or drainage. No nasal bleeding. No trouble swallowing. CARDIAC: No chest pain, orthopnea or paroxysmal nocturnal dyspnea. RESPIRATIONS: No cough, wheezing or asthma. GASTROINTESTINAL: No nausea, vomiting, diarrhea, constipation, or abdominal pain. GENITOURINARY: No hematuria or dysuria. MUSCULOSKELETAL: Pain, swelling and redness in his left leg below the knee to the ankle for 2 days. NEUROLOGICAL: No strokes, seizures, or focal weakness. PSYCHIATRIC: No anxiety or depression. SKIN: Redness in the left lower leg. HEME/LYMPH: No tender or swollen lymph nodes in axilla, inguinal or cervical area. PHYSICAL EXAMINATION: GENERAL: Alert, oriented and cooperative man. VITAL SIGNS: Since admission, temperature 98.8, blood pressure 122/70, pulse 63, respirations 18. HEENT: Examination of his head, eyes, ears, nose, throat revealed pupils are equal, round, and small. Extraocular movements are intact. Sclerae are white. Tympanic membranes clear. Nose is clear. Oral mucous membranes are wet. Dental hygiene is good. NECK: No jugular venous distention, adenopathy or thyromegaly. CHEST: Clear to auscultation and percussion. HEART: Heart had regular rate and rhythm. First and second heart sounds are clear. There are no murmurs or gallops. ABDOMEN: Soft. Bowel sounds are normal. There is no hepatosplenomegaly. No mass. No rebound. EXTREMITIES: Revealed 1+ edema bilaterally. He has erythema from distal to the left knee to proximal left ankle. His pulses; carotid, radial, femoral and dorsalis pedis pulses are palpable and symmetric. HEME/LYMPH: No tender or swollen lymph nodes in axilla, inguinal or cervical area. SKIN: As mentioned before, erythema to the left lower leg. LYMPHATIC SURVEY: No tender or swollen lymph nodes in axilla, inguinal or cervical area. NEUROLOGICAL: Cranial nerves 2 through 12 are intact. Deep tendon reflexes diminished, but present. Moves all extremities. LABORATORY DATA: Comprehensive metabolic profile normal. Lactic acid 2.9, followup 1.1. CBC; white count of 17.5 with absolute neutrophilia, hemoglobin 13.1, platelet count 200. Urine is clear. No EKG or chest x-ray has been presented. ADMITTING DIAGNOSES: 1. Sepsis. 2. Cellulitis, left lower leg. 3. Coronary artery disease. 4. Diabetes mellitus type 2, insulin dependent. 5. Hypertension. 6. Lactic acidosis. PLAN: 1. Cultures have been drawn. 2. IV antibiotics, Rocephin 2 g daily. 3. Reinstitute home medicines. 4. Accu-Cheks and sliding scale moderate. 5. Suspect the patient will need 3 days in the hospital for clearance of his cellulitis and sepsis syndrome. Job ID: [id number]
[2019-07-04] MEDS: Finasteride 5 MG TAB PO SCH (09:40)
[2019-07-04] MEDS: Alogliptin 6.25 MG TAB PO SCH ×2 (09:40→20:45)
[2019-07-04] MEDS: Atorvastatin Calcium 20 MG TAB PO SCH (09:41)
[2019-07-04] MEDS: Levothyroxine Sodium 100 MCG TAB PO SCH (09:41)
[2019-07-04] MEDS: Potassium Chloride 20 MEQ TAB PO SCH ×2 (09:41→20:45)
[2019-07-04] MEDS: Aspirin 81 mg Enteric Coated Tablet PO SCH (09:41)
[2019-07-04] MEDS: Metoprolol Tartrate 50 MG TAB PO SCH ×2 (09:41→20:45)
[2019-07-04] MEDS: metFORMIN 500 MG TAB PO SCH ×2 (09:41→20:45)
[2019-07-04] MEDS: Furosemide 80 MG TAB PO SCH (09:42)
[2019-07-04] MEDS: Tamsulosin HCl 0.4 MG CAP PO SCH (09:42)
[2019-07-04] MEDS: Enoxaparin Sodium 40 MG/0.4 ML SYRINGE SC SCH (09:42)
[2019-07-04] MEDS: cefTRIAXone\\ROCEPHIN 2 GM in Sodium Chloride 0.9% 100 ML IVPB SCH (09:42)
--- NOTE | 2019-07-04 11:16 | RAD ---
CHEST 1 VIEW: Date: 07/04/19 HISTORY: Sepsis. COMPARISON: 02/08/18. FINDINGS: Cardiac silhouette is magnified and enlarged. Pulmonary vasculature is slightly engorged. Mediastinum is midline with postoperative changes and a dual lead left subclavian cardiac electronic device. No lobar consolidation or evidence of pneumothorax. IMPRESSION: 1. Stable radiographic appearance of the chest. Cardiomegaly with borderline pulmonary vascular valdemar estion. 2. No infiltrate is evident. POS: TPC
[2019-07-04] MEDS: Insulin Glargine 38 UNITS in Pre-Filled Syringe 1 EACH SC SCH ×2 (12:30→20:45)
[2019-07-04 13:38] LABS: Lactic Acid 3.1 mmol/L (0.5-2.2)
--- NOTE | 2019-07-04 14:51 | PDOC.EVN ---
Event Note - Event Note Event Note: EKG, dual chamber pacemaker with AV pacing. CXR, no infiltrate or CHF. both reviewed personally
--- NOTE | 2019-07-04 16:59 | EKG ---
Test Reason : Blood Pressure : / mmHG Vent. Rate : 060 BPM Atrial Rate : 357 BPM P-R Int : 000 ms QRS Dur : 100 ms QT Int : 430 ms P-R-T Axes : 000 -44 016 degrees QTc Int : 430 ms Electronic atrial pacemaker Left axis deviation Abnormal ECG Confirmed by SANJAY MORELOS ([id number]) on 07/04/2019 4:58:52 PM Referred By: KHRIS Confirmed By:SANJAY MORELOS
[2019-07-05 06:22] LABS: #Basophils 0.1 thou/uL (0.0-0.2); #Eosinphils 0.1 thou/uL (0.0-0.7); #Monocytes 0.9 thou/uL (0.11-0.59); #Neutrophils 8.1 thou/uL (1.40-6.50); %Basophils 1.2 % (0.0-1.0); %Eosinophils 0.8 % (0.0-10.0); %Lymphocytes 9.4 % (21.0-51.0); %Monocytes 8.9 % (0.0-10.0); %Neutrophils 79.7 % (42.0-75.0); Mean Corpuscular HGB CONC 33.5 g/dL (32.0-36.0); Mean Corpuscular Hemoglobin 30.6 pg (27.0-31.0); Mean Corpuscular Volume 91.4 fL (78.0-98.0); Mean Platelet Volume 8.2 fL (7.4-10.4); Platelet Count 177 thou/uL (130-400); RBC Distribution Width 14.2 % (11.5-14.5); Red Blood Cell (RBC) Count 3.91 mill/uL (4.70-6.10); White Blood Cell (WBC) Count 10.2 thou/uL (4.8-10.8)
[2019-07-05 06:43] LABS: Anion Gap 11 mmol/L (10-20); BUN (Urea Nitrogen) 17 mg/dL (8.4-25.7); Calc. Creatinine Clearance 99 mL/min (70-130); Calcium 8.7 mg/dL (7.8-10.44); Carbon Dioxide 29 mmol/L (23-31); Chloride 104 mmol/L (98-107); Estimated GFR-MDRD Greater than 90; Glucose 70 mg/dL (83-110); Potassium 3.6 mmol/L (3.5-5.1); Sodium 140 mmol/L (136-145)
[2019-07-05] MEDS: Insulin Glargine 38 UNITS in Pre-Filled Syringe 1 EACH SC SCH ×2 (08:43→21:50)
[2019-07-05] MEDS: cefTRIAXone\\ROCEPHIN 2 GM in Sodium Chloride 0.9% 100 ML IVPB SCH (08:43)
[2019-07-05] MEDS: Metoprolol Tartrate 50 MG TAB PO SCH ×2 (08:44→21:49)
[2019-07-05] MEDS: Tamsulosin HCl 0.4 MG CAP PO SCH (08:44)
[2019-07-05] MEDS: Finasteride 5 MG TAB PO SCH (08:44)
[2019-07-05] MEDS: Levothyroxine Sodium 100 MCG TAB PO SCH (08:45)
[2019-07-05] MEDS: Potassium Chloride 20 MEQ TAB PO SCH ×2 (08:45→21:50)
[2019-07-05] MEDS: Aspirin 81 mg Enteric Coated Tablet PO SCH (08:45)
[2019-07-05] MEDS: Furosemide 80 MG TAB PO SCH (08:45)
[2019-07-05] MEDS: Alogliptin 6.25 MG TAB PO SCH ×2 (08:45→21:49)
[2019-07-05] MEDS: metFORMIN 500 MG TAB PO SCH ×2 (08:45→21:48)
[2019-07-05] MEDS: Atorvastatin Calcium 20 MG TAB PO SCH (08:45)
[2019-07-05] MEDS: Enoxaparin Sodium 40 MG/0.4 ML SYRINGE SC SCH (08:46)
--- NOTE | 2019-07-05 14:49 | PDOC.HOSPP ---
- Subjective Encounter Date: 07/05/19 Encounter Time: 09:00 Subjective: Pt seen for followup re: cellulitis. Feels better. No fevers. - Objective Vital Signs & Weight: Vital Signs (12 hours) Temp Pulse Resp BP Pulse Ox 07/05/19 12:00 98.3 F 82 18 172/69 H 96 07/05/19 11:00 98.4 F 61 20 143/75 H 94 L 07/05/19 08:00 96 07/05/19 07:44 98.3 F 82 18 172/69 H 96 07/05/19 04:00 98.5 F 72 18 142/63 H 96 Weight Weight 208 lb I&O: 07/04/19 07/05/19 07/06/19 06:59 06:59 06:59 Intake Total 200 1280 480 Balance 200 1280 480 Result Diagrams: 07/05/19 05:44 07/05/19 05:44 Additional Labs: Accuchecks 07/05/19 07/05/19 07/04/19 11:36 04:39 19:37 POC Glucose 99 70 105 07/04/19 17:24 POC Glucose 126 H Labs and MARs reviewed by mt Hospitalist ROS - Review of Systems Respiratory: denies: cough, shortness of breath, SOB with excertion, pleuritic pain, wheezing Cardiovascular: denies: chest pain, palpitations, orthopnea, paroxysmal noc. dyspnea, edema, light headedness Musculoskeletal: reports: leg pain Skin: reports: rash - Medication Medications: Active Medications Generic Name Dose Route Start Last Admin Trade Name Freq PRN Reason Stop Dose Admin Hydrocodone Bitart/Acetaminophen 1 tab 07/04/19 08:34 07/05/19 09:03 [place] 5/325 PO 1 tab Q4H PRN Administration Moderate Pain (4-6) Alogliptin Benzoate 12.5 mg 07/04/19 09:00 07/05/19 08:45 Alogliptin PO 12.5 mg BID PATITO Administration Aspirin 81 mg 07/04/19 09:00 07/05/19 08:45 Ecotrin PO 81 mg DAILY PATITO Administration Atorvastatin Calcium 20 mg 07/04/19 09:00 07/05/19 08:45 Lipitor PO 20 mg DAILY PATITO Administration Enoxaparin Sodium 40 mg 07/04/19 09:00 07/05/19 08:46 Lovenox SC 40 mg 0900 PATITO Administration Finasteride 5 mg 07/04/19 09:00 07/05/19 08:44 Proscar PO 5 mg DAILY PATITO Administration Furosemide 80 mg 07/04/19 09:00 07/05/19 08:45 Lasix PO 80 mg DAILY PATITO Administration Ceftriaxone Sodium 2 gm/ 100 mls @ 200 mls/hr 07/04/19 09:00 07/05/19 08:43 Sodium Chloride IVPB 100 mls 0900 PATITO Administration Insulin Glargine 38 units/ 0.38 mls @ 0 mls/hr 07/04/19 21:00 07/04/19 20:45 Miscellaneous Medication SC 0.38 mls HS PATITO Administration Insulin Glargine 38 units/ 0.38 mls @ 0 mls/hr 07/04/19 09:00 07/05/19 08:43 Miscellaneous Medication SC 0.38 mls QAM PATITO Administration Isosorbide Mononitrate 60 mg 07/04/19 09:00 07/05/19 08:45 Imdur PO 60 mg DAILY PATITO Administration Levothyroxine Sodium 100 mcg 07/04/19 09:00 07/05/19 08:45 Synthroid PO 100 mcg DAILY PATITO Administration Metformin HCl 1,000 mg 07/04/19 09:00 07/05/19 08:45 Glucophage PO 1,000 mg BID PATITO Administration Metoprolol Tartrate 75 mg 07/04/19 09:00 07/05/19 08:44 Lopressor PO 75 mg BID PATITO Administration Potassium Chloride 20 meq 07/04/19 09:00 07/05/19 08:45 K-Dur PO 20 meq BID PATITO Administration Tamsulosin HCl 0.4 mg 07/04/19 09:00 07/05/19 08:44 Flomax PO 0.4 mg DAILY PATITO Administration - Exam General - other findings: Obese Eye: anicteric sclera ENT: moist mucosa Neck: supple Heart: RRR Respiratory: CTAB Gastrointestinal: soft, non-tender Extremities: no clubbing Skin - other findings: L leg cellulitis improving Psychiatric: normal affect, normal behavior Hosp A/P (1) Cellulitis Code(s): L03.90 - CELLULITIS, UNSPECIFIED Status: Acute (2) Chronic a-fib Code(s): I48.2 - CHRONIC ATRIAL FIBRILLATION * DO NOT USE * Status: Chronic (3) Chronic obstructive lung disease Code(s): J44.9 - CHRONIC OBSTRUCTIVE PULMONARY DISEASE, UNSPECIFIED Status: Chronic (4) HTN (hypertension) Code(s): I10 - ESSENTIAL (PRIMARY) HYPERTENSION Status: Chronic (5) Hypothyroidism Code(s): E03.9 - HYPOTHYROIDISM, UNSPECIFIED Status: Chronic Qualifiers: Hypothyroidism type: unspecified Qualified Code(s): E03.9 - Hypothyroidism , unspecified (6) Obesity (BMI 30-39.9) Code(s): E66.9 - OBESITY, UNSPECIFIED Status: Chronic (7) Sepsis Code(s): A41.9 - SEPSIS, UNSPECIFIED ORGANISM Status: Resolved - Plan plan discussed w/ family, continue antibiotics, out of bed/ambulate continue IV ceftriaxone, follow cultures. Pt had GI bleed in 2018. Unsure if this is why he is not on anticoagulation. Continue Lipitor. Continue Proscare. Continue synthroid.
[2019-07-06] MEDS: Atorvastatin Calcium 20 MG TAB PO SCH (07:42)
[2019-07-06] MEDS: cefTRIAXone\\ROCEPHIN 2 GM in Sodium Chloride 0.9% 100 ML IVPB SCH (07:42)
[2019-07-06] MEDS: Metoprolol Tartrate 50 MG TAB PO SCH ×2 (07:42→20:23)
[2019-07-06] MEDS: Aspirin 81 mg Enteric Coated Tablet PO SCH (07:43)
[2019-07-06] MEDS: Finasteride 5 MG TAB PO SCH (07:43)
[2019-07-06] MEDS: metFORMIN 500 MG TAB PO SCH ×2 (07:43→20:23)
[2019-07-06] MEDS: Levothyroxine Sodium 100 MCG TAB PO SCH (07:43)
[2019-07-06] MEDS: Tamsulosin HCl 0.4 MG CAP PO SCH (07:44)
[2019-07-06] MEDS: Enoxaparin Sodium 40 MG/0.4 ML SYRINGE SC SCH (07:44)
[2019-07-06] MEDS: Alogliptin 6.25 MG TAB PO SCH ×2 (07:44→20:21)
[2019-07-06] MEDS: Potassium Chloride 20 MEQ TAB PO SCH ×2 (07:44→20:23)
[2019-07-06] MEDS: Furosemide 80 MG TAB PO SCH (07:44)
[2019-07-06] MEDS: Insulin Glargine 38 UNITS in Pre-Filled Syringe 1 EACH SC SCH ×2 (08:27→21:22)
--- NOTE | 2019-07-06 14:25 | PDOC.HOSPP ---
- Subjective Encounter Date: 07/06/19 Encounter Time: 10:00 Subjective: Left leg discomfort.. - Objective Vital Signs & Weight: Vital Signs (12 hours) Temp Pulse Resp BP BP Pulse Ox 07/06/19 08:00 94 L 07/06/19 07:40 98.5 F 72 20 159/65 H 94 L 07/06/19 04:00 98.5 F 74 18 148/78 H 96 Weight Weight 208 lb I&O: 07/05/19 07/06/19 07/07/19 06:59 06:59 06:59 Intake Total 1280 1280 600 Balance 1280 1280 600 Result Diagrams: 07/05/19 05:44 07/05/19 05:44 Additional Labs: Accuchecks 07/06/19 07/06/19 07/05/19 11:34 05:17 19:20 POC Glucose 148 H 91 144 H 07/05/19 16:20 POC Glucose 145 H Hospitalist ROS - Medication Medications: Active Medications Generic Name Dose Route Start Last Admin Trade Name Freq PRN Reason Stop Dose Admin Hydrocodone Bitart/Acetaminophen 1 tab 07/04/19 08:34 07/05/19 09:03 [place] 5/325 PO 1 tab Q4H PRN Administration Moderate Pain (4-6) Alogliptin Benzoate 12.5 mg 07/04/19 09:00 07/06/19 07:44 Alogliptin PO 12.5 mg BID PATITO Administration Aspirin 81 mg 07/04/19 09:00 07/06/19 07:43 Ecotrin PO 81 mg DAILY PATITO Administration Atorvastatin Calcium 20 mg 07/04/19 09:00 07/06/19 07:42 Lipitor PO 20 mg DAILY PATITO Administration Enoxaparin Sodium 40 mg 07/04/19 09:00 07/06/19 07:44 Lovenox SC 40 mg 0900 PATITO Administration Finasteride 5 mg 07/04/19 09:00 07/06/19 07:43 Proscar PO 5 mg DAILY PATITO Administration Furosemide 80 mg 07/04/19 09:00 07/06/19 07:44 Lasix PO 80 mg DAILY PATITO Administration Ceftriaxone Sodium 2 gm/ 100 mls @ 200 mls/hr 07/04/19 09:00 07/06/19 07:42 Sodium Chloride IVPB 100 mls 0900 PATITO Administration Insulin Glargine 38 units/ 0.38 mls @ 0 mls/hr 07/04/19 21:00 07/05/19 21:50 Miscellaneous Medication SC 0.38 mls HS PATITO Administration Insulin Glargine 38 units/ 0.38 mls @ 0 mls/hr 07/04/19 09:00 07/06/19 08:27 Miscellaneous Medication SC 0.38 mls QAM PATITO Administration Isosorbide Mononitrate 60 mg 07/04/19 09:00 07/06/19 07:44 Imdur PO 60 mg DAILY PATITO Administration Levothyroxine Sodium 100 mcg 07/04/19 09:00 07/06/19 07:43 Synthroid PO 100 mcg DAILY PATITO Administration Metformin HCl 1,000 mg 07/04/19 09:00 07/06/19 07:43 Glucophage PO 1,000 mg BID PATITO Administration Metoprolol Tartrate 75 mg 07/04/19 09:00 07/06/19 07:42 Lopressor PO 75 mg BID PATITO Administration Potassium Chloride 20 meq 07/04/19 09:00 07/06/19 07:44 K-Dur PO 20 meq BID PATITO Administration Tamsulosin HCl 0.4 mg 07/04/19 09:00 07/06/19 07:44 Flomax PO 0.4 mg DAILY PATITO Administration - Exam General Appearance: NAD Neck: supple Heart: irregular Respiratory: CTAB Gastrointestinal: soft Extremities: 1+ LE edema (of left leg + redness..) Neurological: no weakness Hosp A/P (1) Atrial fibrillation Code(s): I48.91 - UNSPECIFIED ATRIAL FIBRILLATION Status: Acute Plan: Chronic. Rate controlled. (2) COPD (chronic obstructive pulmonary disease) Status: Acute Plan: Stable.. (3) Cellulitis Code(s): L03.90 - CELLULITIS, UNSPECIFIED Status: Acute Plan: Continue antibiotics,.. Check doppler to r/o DVT.. (4) Sepsis Code(s): A41.9 - SEPSIS, UNSPECIFIED ORGANISM Status: Resolved Plan: BxC negative so far.. (5) HTN (hypertension) Code(s): I10 - ESSENTIAL (PRIMARY) HYPERTENSION Status: Chronic Plan: Controlled.. - Plan Continue current therapy..
[2019-07-07] MEDS: cefTRIAXone\\ROCEPHIN 2 GM in Sodium Chloride 0.9% 100 ML IVPB SCH (07:57)
[2019-07-07] MEDS: Alogliptin 6.25 MG TAB PO SCH ×2 (08:01→21:17)
[2019-07-07] MEDS: Insulin Glargine 38 UNITS in Pre-Filled Syringe 1 EACH SC SCH ×2 (08:01→21:20)
[2019-07-07] MEDS: Metoprolol Tartrate 50 MG TAB PO SCH ×2 (08:01→21:18)
[2019-07-07] MEDS: metFORMIN 500 MG TAB PO SCH ×2 (08:02→21:18)
[2019-07-07] MEDS: Tamsulosin HCl 0.4 MG CAP PO SCH (08:02)
[2019-07-07] MEDS: Finasteride 5 MG TAB PO SCH (08:02)
[2019-07-07] MEDS: Furosemide 80 MG TAB PO SCH (08:02)
[2019-07-07] MEDS: Potassium Chloride 20 MEQ TAB PO SCH ×2 (08:02→21:19)
[2019-07-07] MEDS: Atorvastatin Calcium 20 MG TAB PO SCH (08:03)
[2019-07-07] MEDS: Aspirin 81 mg Enteric Coated Tablet PO SCH (08:03)
[2019-07-07] MEDS: Enoxaparin Sodium 40 MG/0.4 ML SYRINGE SC SCH (08:03)
[2019-07-07] MEDS: Levothyroxine Sodium 100 MCG TAB PO SCH (08:03)
--- NOTE | 2019-07-07 11:01 | ULT ---
EXAM: Left lower extremity venous duplex: Deep veins evaluated with color Doppler, spectral analysis, and compression. INDICATIONS: Left lower extremity pain and edema. FINDINGS: Deep veins interrogated include common femoral vein, femoral vein, popliteal vein, and post erior tibial vein. These veins show normal compression and blood flow. No evidence of DVT. IMPRESSION: Negative Left venous duplex exam.
--- NOTE | 2019-07-07 12:18 | PDOC.HOSPP ---
- Subjective Encounter Date: 07/07/19 Encounter Time: 10:00 Subjective: Feels better. - Objective Vital Signs & Weight: Vital Signs (12 hours) Temp Pulse Resp BP Pulse Ox 07/07/19 08:00 97 07/07/19 07:33 97.8 F 66 18 138/71 97 Weight Weight 208 lb I&O: 07/06/19 07/07/19 07/08/19 06:59 06:59 05:59 Intake Total 1280 1420 240 Balance 1280 1420 240 Result Diagrams: 07/05/19 05:44 07/05/19 05:44 Additional Labs: Accuchecks 07/07/19 07/06/19 07/06/19 05:03 20:19 16:25 POC Glucose 61 L 111 H 108 Hospitalist ROS - Medication Medications: Active Medications Generic Name Dose Route Start Last Admin Trade Name Freq PRN Reason Stop Dose Admin Hydrocodone Bitart/Acetaminophen 1 tab 07/04/19 08:34 07/05/19 09:03 [place] 5/325 PO 1 tab Q4H PRN Administration Moderate Pain (4-6) Alogliptin Benzoate 12.5 mg 07/04/19 09:00 07/07/19 08:01 Alogliptin PO 12.5 mg BID PATITO Administration Aspirin 81 mg 07/04/19 09:00 07/07/19 08:03 Ecotrin PO 81 mg DAILY PATITO Administration Atorvastatin Calcium 20 mg 07/04/19 09:00 07/07/19 08:03 Lipitor PO 20 mg DAILY PATITO Administration Enoxaparin Sodium 40 mg 07/04/19 09:00 07/07/19 08:03 Lovenox SC 40 mg 0900 PATITO Administration Finasteride 5 mg 07/04/19 09:00 07/07/19 08:02 Proscar PO 5 mg DAILY PATITO Administration Furosemide 80 mg 07/04/19 09:00 07/07/19 08:02 Lasix PO 80 mg DAILY PATITO Administration Ceftriaxone Sodium 2 gm/ 100 mls @ 200 mls/hr 07/04/19 09:00 07/07/19 07:57 Sodium Chloride IVPB 100 mls 0900 PATITO Administration Insulin Glargine 38 units/ 0.38 mls @ 0 mls/hr 07/04/19 21:00 07/06/19 21:22 Miscellaneous Medication SC Not Given HS [facility] Insulin Glargine 38 units/ 0.38 mls @ 0 mls/hr 07/04/19 09:00 07/07/19 08:01 Miscellaneous Medication SC 0.38 mls QAM PATITO Administration Isosorbide Mononitrate 60 mg 07/04/19 09:00 07/07/19 08:03 Imdur PO 60 mg DAILY PATITO Administration Levothyroxine Sodium 100 mcg 07/04/19 09:00 07/07/19 08:03 Synthroid PO 100 mcg DAILY PATITO Administration Metformin HCl 1,000 mg 07/04/19 09:00 07/07/19 08:02 Glucophage PO 1,000 mg BID PATITO Administration Metoprolol Tartrate 75 mg 07/04/19 09:00 07/07/19 08:01 Lopressor PO 75 mg BID PATITO Administration Potassium Chloride 20 meq 07/04/19 09:00 07/07/19 08:02 K-Dur PO 20 meq BID PATITO Administration Tamsulosin HCl 0.4 mg 07/04/19 09:00 07/07/19 08:02 Flomax PO 0.4 mg DAILY PATITO Administration - Exam General Appearance: NAD Neck: no JVD Heart: RRR Respiratory: CTAB Gastrointestinal: soft Extremities - other findings: Edema of left leg + redness. Neurological: no weakness Hosp A/P (1) Atrial fibrillation Code(s): I48.91 - UNSPECIFIED ATRIAL FIBRILLATION Status: Chronic Plan: Chronic, rate controlled.. (2) COPD (chronic obstructive pulmonary disease) Status: Acute Plan: stable.. (3) Cellulitis Code(s): L03.90 - CELLULITIS, UNSPECIFIED Status: Acute Plan: Improving.. (4) Sepsis Code(s): A41.9 - SEPSIS, UNSPECIFIED ORGANISM Status: Resolved Plan: BxC negative.. (5) HTN (hypertension) Code(s): I10 - ESSENTIAL (PRIMARY) HYPERTENSION Status: Chronic Plan: Controlled. - Plan Continue current therapy.. Possible discharge tomorrow.
[2019-07-08 07:11] VITALS: BP 177/73; TEMP 98
[2019-07-08] MEDS: Enoxaparin Sodium 40 MG/0.4 ML SYRINGE SC SCH (07:34)
[2019-07-08] MEDS: Insulin Glargine 38 UNITS in Pre-Filled Syringe 1 EACH SC SCH (07:34)
[2019-07-08] MEDS: Potassium Chloride 20 MEQ TAB PO SCH (07:35)
[2019-07-08] MEDS: Alogliptin 6.25 MG TAB PO SCH (07:35)
[2019-07-08] MEDS: cefTRIAXone\\ROCEPHIN 2 GM in Sodium Chloride 0.9% 100 ML IVPB SCH (07:35)
[2019-07-08] MEDS: Finasteride 5 MG TAB PO SCH (07:35)
[2019-07-08] MEDS: Levothyroxine Sodium 100 MCG TAB PO SCH (07:36)
[2019-07-08] MEDS: Atorvastatin Calcium 20 MG TAB PO SCH (07:36)
[2019-07-08] MEDS: Furosemide 80 MG TAB PO SCH (07:36)
[2019-07-08] MEDS: Metoprolol Tartrate 50 MG TAB PO SCH (07:36)
[2019-07-08] MEDS: Tamsulosin HCl 0.4 MG CAP PO SCH (07:37)
[2019-07-08] MEDS: metFORMIN 500 MG TAB PO SCH (07:37)
[2019-07-08] MEDS: Aspirin 81 mg Enteric Coated Tablet PO SCH (07:37)
--- NOTE | 2019-07-09 08:40 | DIS ---
DATE OF ADMISSION: 07/04/2019 DATE OF DISCHARGE: 07/08/2019 ADMITTING DIAGNOSES: Primary diagnosis: Left leg cellulitis with sepsis. Secondary diagnosis: Hypertension, diabetes mellitus, coronary artery disease. DISCHARGE DIAGNOSES: Primary diagnosis: Left leg cellulitis with sepsis. Secondary diagnoses: Hypertension, diabetes mellitus, coronary artery disease. SAND SIFTER: None. PROCEDURE PERFORMED: Chest x-ray, EKG, and venous Doppler of the lower extremities. COURSE OF HOSPITALIZATION: Uncomplicated, responded well to management. The patient is clinically stable at this time being discharged home. DISCHARGE MEDICATIONS: Please see discharge medication reconciliation sheet. The patient is to follow up with his primary care physician. PHYSICAL EXAMINATION: GENERAL: Today, the patient is alert, responsive, cooperative, present in no distress. LATEST VITAL SIGNS: Show a temperature of 98, pulse rate 61, respiratory rate 17, blood pressure 177/72. HEENT: His head and neck examination is normal. HEART: He has regular S1 and S2. LUNGS: Clear. ABDOMEN: Benign. EXTREMITIES: He has some edema of the left leg. Redness of the left leg has completely disappeared. As mentioned above earlier, he is to follow up with his primary care physician. DISCHARGE TIME: 32 minutes. Job ID: [id number]
== END 2019-07-08 11:10 | disposition home or self-care (01) | DRG 872 ==
LOC: ERS 00:49 → T4-A 02:30
PROVIDERS: ADMIT Family Medicine; ATTEND Family Medicine
DX: A41.9 Sepsis, unspecified organism (principal); L03.116 Cellulitis of left lower limb; E87.2 Acidosis; I48.20 Chronic atrial fibrillation, unspecified; I10 Essential (primary) hypertension; E11.9 Type 2 diabetes mellitus without complications; E03.9 Hypothyroidism, unspecified; E66.9 Obesity, unspecified; J44.9 Chronic obstructive pulmonary disease, unspecified; I25.10 Atherosclerotic heart disease of native coronary artery without angina pectoris; Z79.899 Other long term (current) drug therapy; Z79.890 Hormone replacement therapy; Z79.4 Long term (current) use of insulin; Z95.0 Presence of cardiac pacemaker; Z68.39 Body mass index [BMI] 39.0-39.9, adult; Z88.0 Allergy status to penicillin; Z79.82 Long term (current) use of aspirin; Z95.1 Presence of aortocoronary bypass graft
CPT/HCPCS: 36415; 36416; 71045; 80048; 80053; 81003; 81015; 83605; 85025; 87040; 93005; 93010; 96365; 96367; 96375; J0692; J0696; J1650; J1815; J3370; J3490; J7050

== ENCOUNTER 2019-09-03 08:43 | Emergency (ER) | payer MEDICARE ==
[2019-09-03 09:37] LABS: Bilirubin Negative (Negative); Blood, Urine Negative (Negative); Clarity Clear (Clear); Glucose, Urine (Dipstick) Normal (Negative); Leukocyte Negative Leu/uL (Negative); Nitrite Negative (Negative); Protein, Urine (Dipstick) Negative (Neg-Trace); Urobilinogen Normal mg/dL (Less than 2)
[2019-09-03 09:42] LABS: #Eosinphils 0.4 thou/uL (0.0-0.7); #Lymphocytes 1.5 thou/uL (1.20-3.40); #Monocytes 0.8 thou/uL (0.11-0.59); #Neutrophils 6.1 thou/uL (1.40-6.50); %Basophils 0.5 % (0.0-1.0); %Eosinophils 4.4 % (0.0-10.0); %Lymphocytes 17.1 % (21.0-51.0); %Monocytes 8.6 % (0.0-10.0); %Neutrophils 69.5 % (42.0-75.0); Mean Corpuscular HGB CONC 33.7 g/dL (32.0-36.0); Mean Corpuscular Hemoglobin 30.3 pg (27.0-31.0); Mean Corpuscular Volume 89.9 fL (78.0-98.0); Mean Platelet Volume 7.7 fL (7.4-10.4); Platelet Count 312 thou/uL (130-400); White Blood Cell (WBC) Count 8.8 thou/uL (4.8-10.8)
[2019-09-03 09:56] LABS: ALT (SGPT) 8 U/L (8-55); AST (SGOT) 14 U/L (5-34); Alkaline Phosphatase 88 U/L (40-110); Anion Gap 12 mmol/L (10-20); BUN (Urea Nitrogen) 15 mg/dL (8.4-25.7); Bilirubin, Total 0.5 mg/dL (0.2-1.2); Calc. Creatinine Clearance 0 mL/min (70-130); Calcium 9.3 mg/dL (7.8-10.44); Carbon Dioxide 28 mmol/L (23-31); Chloride 107 mmol/L (98-107); Estimated GFR-MDRD Greater than 90; Glucose 93 mg/dL (83-110); Potassium 3.8 mmol/L (3.5-5.1); Sodium 143 mmol/L (136-145)
--- NOTE | 2019-09-03 10:16 | CT ---
CT BRAIN WITHOUT CONTRAST: HISTORY: Altered mental status. COMPARISON: 09/17/2018 FINDINGS: Changes of cortical atrophy and chronic small vessel ischemic disease are again seen. Ventricular siz e is stable and the basilar cisterns are patent. No evidence of acute infarct, hemorrhage, midline sh ift or abnormal extraaxial fluid collections is seen. The bony calvarium is intact. There is mild muc osal disease in the paranasal sinuses. IMPRESSION: No CT evidence of acute intracranial process. POS: OFF
== END 2019-09-03 10:45 | disposition home or self-care (01) ==
LOC: ERS 08:43
DX: R35.0 Frequency of micturition (principal); R41.0 Disorientation, unspecified; I11.0 Hypertensive heart disease with heart failure; I50.9 Heart failure, unspecified; I48.91 Unspecified atrial fibrillation; E11.9 Type 2 diabetes mellitus without complications; J44.9 Chronic obstructive pulmonary disease, unspecified; Z87.891 Personal history of nicotine dependence; Z79.4 Long term (current) use of insulin; Z79.899 Other long term (current) drug therapy; Z79.82 Long term (current) use of aspirin
CPT/HCPCS: 36415; 70450; 80053; 81003; 85025

== ENCOUNTER 2019-09-19 15:59 | Outpatient (CLI) | payer MEDICARE ==
--- NOTE | 2019-09-19 16:51 | RAD ---
XR Knee Lt 4 View STANDARD HISTORY: Left knee pain FINDINGS: No fracture or dislocation is identified. Chondrocalcinosis is present.
== END 2019-09-19 16:00 | disposition home or self-care (01) ==
LOC: SCSRAD 15:59
PROVIDERS: ATTEND Nurse Practitioner Family
DX: M25.562 Pain in left knee (principal); M94.262 Chondromalacia, left knee

== ENCOUNTER 2019-10-13 08:34 | Observation (INO) | payer MEDICARE ==
[2019-10-13] MEDS ORDERED: Aspirin Chewable 81 MG TAB ONE (08:55)
[2019-10-13] MEDS ORDERED: Nitroglycerin 0.4 MG TAB 1 EACH ONE (08:55)
[2019-10-13] MEDS ORDERED: Nitroglycerin 2% Ointment 1 INCH/1 GM Packet ONE (08:55)
[2019-10-13 09:20] LABS: #Basophils 0.1 thou/uL (0.0-0.2); #Eosinphils 0.3 thou/uL (0.0-0.7); #Lymphocytes 1.1 thou/uL (1.20-3.40); #Monocytes 0.6 thou/uL (0.11-0.59); #Neutrophils 5.8 thou/uL (1.40-6.50); %Basophils 0.8 % (0.0-1.0); %Eosinophils 3.9 % (0.0-10.0); %Lymphocytes 13.5 % (21.0-51.0); %Monocytes 7.3 % (0.0-10.0); %Neutrophils 74.5 % (42.0-75.0); Hemoglobin 11.9 g/dL (14.0-18.0); Mean Corpuscular HGB CONC 33.7 g/dL (32.0-36.0); Mean Corpuscular Hemoglobin 30.6 pg (27.0-31.0); Mean Corpuscular Volume 90.8 fL (78.0-98.0); Mean Platelet Volume 8.4 fL (7.4-10.4); Platelet Count 253 thou/uL (130-400); RBC Distribution Width 14.6 % (11.5-14.5); Red Blood Cell (RBC) Count 3.91 mill/uL (4.70-6.10); White Blood Cell (WBC) Count 7.8 thou/uL (4.8-10.8)
--- NOTE | 2019-10-13 09:24 | RAD ---
EXAM: XR Chest 1 View Portable PROVIDED CLINICAL HISTORY: Chest pain COMPARISON: 07/04/2019 FINDINGS: Evaluation is limited by patient body habitus. The cardiac silhouette remains enlarged. Left subclavi an cardiac pacing device and median sternotomy changes are redemonstrated. Patchy bibasilar airspace disease. No pleural fluid or pneumothorax evident. IMPRESSION: Patchy bibasilar airspace disease, subsegmental atelectasis versus infiltrate. Correlate for pneumoni a. Follow-up recommended.
[2019-10-13 09:26] LABS: ALT (SGPT) 14 U/L (8-55); AST (SGOT) 19 U/L (5-34); Albumin 3.9 g/dL (3.4-4.8); Alkaline Phosphatase 81 U/L (40-110); Anion Gap 11 mmol/L (10-20); BUN (Urea Nitrogen) 15 mg/dL (8.4-25.7); Bilirubin, Total 0.9 mg/dL (0.2-1.2); CK (CPK) 106 U/L (30-200); Calc. Creatinine Clearance 0 mL/min (70-130); Calcium 8.7 mg/dL (7.8-10.44); Carbon Dioxide 26 mmol/L (23-31); Chloride 108 mmol/L (98-107); Estimated GFR-MDRD Greater than 90; Glucose 167 mg/dL (83-110); Potassium 3.6 mmol/L (3.5-5.1); Protein, Total 7.9 g/dL (5.8-8.1); Sodium 141 mmol/L (136-145)
[2019-10-13] MEDS ORDERED: Metoprolol Tartrate 50 MG TAB PO SCH ×2 (10:45→21:00)
[2019-10-13] MEDS ORDERED: Furosemide 80 MG TAB PO SCH (10:45)
[2019-10-13] MEDS ORDERED: Tamsulosin HCl 0.4 MG CAP PO SCH (10:45)
[2019-10-13] MEDS ORDERED: Dextrose 50% Abboject 50 ML SYRINGE SLOW IVP PRN (10:50)
[2019-10-13] MEDS ORDERED: HumaLOG 300 UNITS/3 ML VIAL SC PRN (10:50)
[2019-10-13] MEDS ORDERED: Dextrose 5% in Water 1,000 ML IV PRN (10:50)
--- NOTE | 2019-10-13 10:58 | PDOC.HHP ---
Hospitalist HPI - History of Present Illness Chest pain History of Present Illness: This is a pleasant 84 CM with pmx of CAD s/p CABG over 10 years ago, HTN, IDDM , and BPH who presented the hospital with chest pain started yesterday while working in the yard. He describes the pain as pressure to the center of the chest radiating to both shoulders and associated with SOB. The pain recurred this morning at 5am and was resolved with nitroglycerin in er. Hospitalist ROS - Review of Systems All other systems reviewed; all pertinent +/- noted in HPI/Subj Hospitalist History - Past Medical History Cardiac: reports: CAD, CHF, HTN Pulmonary: reports: no pertinent history Renal/: reports: Benign prostatic enlarg. - Past Surgical History Past Surgical History: reports: CABG - Family History Family History: reports: no pertinent history - Social History Smoking Status: Never smoker Alcohol: reports: None Drugs: reports: none Living Situation: With Family Activity level: independent ambulation - Exam General Appearance: awake alert Eye: PERRL, anicteric sclera ENT: normocephalic atraumatic, no oropharyngeal lesions Neck: supple, no JVD Heart: RRR, no murmur, no gallops, no rubs Respiratory: CTAB, no wheezes, no rales Gastrointestinal: soft, non-tender, normal bowel sounds Extremities: no cyanosis, no clubbing, no edema Neurological: cranial nerve grossly intact, no focal deficits Psychiatric: normal affect, A&O x 3, oriented to person Hospitalist Results - Labs Result Diagrams: 10/13/19 08:50 10/13/19 08:50 Lab results: WBC 7.8 thou/uL (4.8-10.8) 10/13/19 08:50 Hgb 11.9 g/dL (14.0-18.0) L 10/13/19 08:50 Hct 35.5 % (42.0-52.0) L 10/13/19 08:50 MCV 90.8 fL (78.0-98.0) 10/13/19 08:50 Plt Count 253 thou/uL (130-400) 10/13/19 08:50 Neutrophils % 74.5 % (42.0-75.0) 10/13/19 08:50 Sodium 141 mmol/L (136-145) 10/13/19 08:50 Potassium 3.6 mmol/L (3.5-5.1) 10/13/19 08:50 Chloride 108 mmol/L (98-107) H 10/13/19 08:50 Carbon Dioxide 26 mmol/L (23-31) 10/13/19 08:50 BUN 15 mg/dL (8.4-25.7) 10/13/19 08:50 Creatinine 0.75 mg/dL (0.7-1.3) 10/13/19 08:50 Glucose 167 mg/dL (83-110) H 10/13/19 08:50 Calcium 8.7 mg/dL (7.8-10.44) 10/13/19 08:50 Total Bilirubin 0.9 mg/dL (0.2-1.2) 10/13/19 08:50 AST 19 U/L (5-34) 10/13/19 08:50 ALT 14 U/L (8-55) 10/13/19 08:50 Alkaline Phosphatase 81 U/L (40-110) 10/13/19 08:50 Creatine Kinase 106 U/L (30-200) 10/13/19 08:50 Troponin I Less than 0.010 ng/mL (< 0.028) 10/13/19 08:50 Serum Total Protein 7.9 g/dL (5.8-8.1) 10/13/19 08:50 Albumin 3.9 g/dL (3.4-4.8) 10/13/19 08:50 - EKG Interpretation EKG: NSR, NO STEMI Hospitalist H&P A/P - Problem (1) Chest pain Code(s): R07.9 - CHEST PAIN, UNSPECIFIED Status: Acute Assessment and Plan: HEART SCORE is 6 correlating with risk of MACE of 12-16% TAY RISK SCORE is 4 correlating with 20% risk at 14 days of all cause mortality , new or recurrent ischemia or PR. ASA and atorvastatin continue Imdur and metoprolol Trend troponins and schedule a stress test if troponins are not elevated. (2) Hypertensive urgency Code(s): I16.0 - HYPERTENSIVE URGENCY Status: Acute Assessment and Plan: Patient denied taking his home medications today. Resume and monitor. (3) Obesity Code(s): E66.9 - OBESITY, UNSPECIFIED Status: Chronic Qualifiers: Obesity classification: adult class 3 (BMI >= 40) Body mass index: BMI 40.0 -44.9 (4) Diabetes mellitus Code(s): E11.9 - TYPE 2 DIABETES MELLITUS WITHOUT COMPLICATIONS Status: Chronic Assessment and Plan: Lantus 38 u bid and humolog sliding scale.
[2019-10-13 12:51] LABS: Troponin I 0.012 ng/mL (< 0.028)
[2019-10-13 12:57] VITALS: BMI 37.4
[2019-10-13 15:26] LABS: Troponin I 0.018 ng/mL (< 0.028)
[2019-10-13] MEDS: Potassium Chloride 20 MEQ TAB PO SCH (17:20)
[2019-10-13] MEDS: Metoprolol Tartrate 50 MG TAB PO SCH (20:44)
[2019-10-13] MEDS: Insulin Glargine 38 UNITS in Pre-Filled Syringe 1 EACH SC SCH (20:44)
[2019-10-13] MEDS: Atorvastatin Calcium 40 MG TAB PO SCH (20:46)
[2019-10-13] MEDS ORDERED: INSULIN DETEMIR 38 UNIT SQ SCH (21:00)
[2019-10-14 05:36] LABS: #Eosinphils 0.4 thou/uL (0.0-0.7); #Lymphocytes 1.3 thou/uL (1.20-3.40); #Monocytes 0.6 thou/uL (0.11-0.59); %Basophils 0.5 % (0.0-1.0); %Eosinophils 4.4 % (0.0-10.0); %Lymphocytes 15.4 % (21.0-51.0); %Monocytes 7.6 % (0.0-10.0); Hemoglobin 11.7 g/dL (14.0-18.0); Mean Corpuscular HGB CONC 33.4 g/dL (32.0-36.0); Mean Corpuscular Hemoglobin 30.3 pg (27.0-31.0); Mean Corpuscular Volume 90.8 fL (78.0-98.0); Mean Platelet Volume 8.1 fL (7.4-10.4); Platelet Count 255 thou/uL (130-400); RBC Distribution Width 14.7 % (11.5-14.5); Red Blood Cell (RBC) Count 3.87 mill/uL (4.70-6.10); White Blood Cell (WBC) Count 8.3 thou/uL (4.8-10.8)
[2019-10-14 05:54] LABS: Anion Gap 10 mmol/L (10-20); BUN (Urea Nitrogen) 16 mg/dL (8.4-25.7); Calc. Creatinine Clearance 105 mL/min (70-130); Calcium 8.9 mg/dL (7.8-10.44); Carbon Dioxide 27 mmol/L (23-31); Chloride 107 mmol/L (98-107); Estimated GFR-MDRD Greater than 90; Glucose 136 mg/dL (83-110); Potassium 3.4 mmol/L (3.5-5.1); Sodium 141 mmol/L (136-145)
[2019-10-14] MEDS: Levothyroxine Sodium 100 MCG TAB PO SCH (07:17)
[2019-10-14] MEDS: Insulin Glargine 38 UNITS in Pre-Filled Syringe 1 EACH SC SCH ×2 (08:53→19:58)
[2019-10-14] MEDS: Enoxaparin Sodium 40 MG/0.4 ML SYRINGE SC SCH (08:53)
[2019-10-14] MEDS ORDERED: Tamsulosin HCl 0.4 MG CAP PO SCH (09:00)
[2019-10-14] MEDS ORDERED: Furosemide 80 MG TAB PO SCH (09:00)
[2019-10-14] MEDS: Aspirin 81 mg Enteric Coated Tablet PO SCH (12:22)
[2019-10-14] MEDS: Tamsulosin HCl 0.4 MG CAP PO SCH (12:23)
[2019-10-14] MEDS: Finasteride 5 MG TAB PO SCH (12:23)
[2019-10-14] MEDS: Potassium Chloride 20 MEQ TAB PO SCH ×2 (12:23→17:54)
[2019-10-14] MEDS: Metoprolol Tartrate 50 MG TAB PO SCH ×2 (12:23→20:00)
[2019-10-14] MEDS: Furosemide 80 MG TAB PO SCH (12:24)
--- NOTE | 2019-10-14 13:47 | PDOC.HOSPP ---
- Subjective Encounter Date: 10/14/19 Encounter Time: 13:47 Subjective: The patient is chest pain free today - Objective Vital Signs & Weight: Vital Signs (12 hours) Temp Pulse Resp BP Pulse Ox 10/14/19 12:20 97.5 F L 68 18 174/74 H 94 L 10/14/19 07:40 97.3 F L 60 20 199/81 H 95 10/14/19 04:02 97.5 F L 60 17 159/67 H 95 Weight Weight 206 lb 6.4 oz I&O: 10/13/19 10/14/19 10/15/19 06:59 06:59 06:59 Intake Total 600 Balance 600 Result Diagrams: 10/14/19 05:28 10/14/19 05:28 Additional Labs: Accuchecks 10/14/19 10/13/19 10/13/19 12:27 20:47 16:45 POC Glucose 196 H 149 H 123 H Hospitalist ROS - Medication Medications: Active Medications Generic Name Dose Route Start Last Admin Trade Name Maya PRN Reason Stop Dose Admin Aspirin 81 mg 10/14/19 09:00 10/14/19 12:22 Ecotrin PO 81 mg DAILY PATITO Administration Atorvastatin Calcium 20 mg 10/13/19 21:00 10/13/19 20:46 Lipitor PO 20 mg HS PATITO Administration Enoxaparin Sodium 40 mg 10/14/19 09:00 10/14/19 08:53 Lovenox SC Not Given 0900 PATITO Finasteride 5 mg 10/14/19 09:00 10/14/19 12:23 Proscar PO 5 mg DAILY PATITO Administration Furosemide 80 mg 10/14/19 09:00 10/14/19 12:24 Lasix PO 80 mg DAILY PATITO Administration Insulin Glargine 38 units/ 0.38 mls @ 0 mls/hr 10/13/19 21:00 10/14/19 08:53 Miscellaneous Medication SC Not Given BID PATITO Isosorbide Mononitrate 60 mg 10/14/19 09:00 10/14/19 12:23 Imdur PO 60 mg DAILY PATITO Administration Levothyroxine Sodium 100 mcg 10/14/19 06:00 10/14/19 07:17 Synthroid PO 100 mcg 0600 PATITO Administration Metoprolol Tartrate 75 mg 10/13/19 21:00 10/14/19 12:23 Lopressor PO 75 mg BID PATITO Administration Potassium Chloride 20 meq 10/13/19 17:00 10/14/19 12:23 K-Dur PO 20 meq BID-WM PATITO Administration Tamsulosin HCl 0.4 mg 10/14/19 09:00 10/14/19 12:23 Flomax PO 0.4 mg DAILY PATITO Administration - Exam Eye: PERRL, anicteric sclera ENT: normocephalic atraumatic Neck: supple, no JVD Heart: RRR, no murmur, no gallops, no rubs, normal peripheral pulses Respiratory: CTAB, no wheezes, no rales, no ronchi, normal chest expansion, no tachypnea, normal percussion Gastrointestinal: soft Neurological: cranial nerve grossly intact, normal sensation to touch, no weakness, no focal deficits, no new deficit Hosp A/P (1) Chest pain Code(s): R07.9 - CHEST PAIN, UNSPECIFIED Status: Acute Plan: 10/13: HEART SCORE is 6 correlating with risk of MACE of 12-16% TAY RISK SCORE is 4 correlating with 20% risk at 14 days of all cause mortality , new or recurrent ischemia or NV. ASA and atorvastatin continue Imdur and metoprolol Trend troponins and schedule a stress test if troponins are not elevated. 10/14: Stress test results are pending. He is complaining of bilateral thigh pain with ambulation. Peripheral pulses intact. Check bilateral lower extremity venous duplex. Likely will need outpatient physical therapy. (2) Hypertensive urgency Code(s): I16.0 - HYPERTENSIVE URGENCY Status: Acute Plan: His blood pressure remains uncontrolled on his current regimen. I will add amlodipine 10 mg orally daily. (3) Obesity Code(s): E66.9 - OBESITY, UNSPECIFIED Status: Chronic Qualifiers: Obesity classification: adult class 3 (BMI >= 40) Body mass index: BMI 40.0 -44.9 (4) Diabetes mellitus Code(s): E11.9 - TYPE 2 DIABETES MELLITUS WITHOUT COMPLICATIONS Status: Chronic
[2019-10-14] MEDS ORDERED: Amlodipine 10 MG TAB PO SCH (14:00)
--- NOTE | 2019-10-14 14:42 | NM ---
MYOCARDIAL PERFUSION SCAN WITH SPECT IMAGING: HISTORY: Chest pain and shortness of breath. TECHNIQUE: This examination is performed using 29.4 millicuries 99m technetium sestamibi on the stress and 9.7 m illicuries on the resting images. FINDINGS: This shows a very tiny, fixed defect in the inferior wall of the ventricle, near the apex, which coul d represent a small scar. No ischemic change. WALL MOTION: Symmetric contractility of the ventricle is demonstrated. LEFT VENTRICULAR EJECTION FRACTION: The calculated left ventricular ejection fraction is 65%. IMPRESSION: 1. Tiny inferior apical wall scar. 2. No ischemic change. POS: DASHAWN
--- NOTE | 2019-10-14 17:03 | ULT ---
EXAM: Bilateral lower extremity venous Doppler US HISTORY: bilateral lower extremity edema and pain FINDINGS: Grayscale, color-flow, Doppler evaluation, spectral analysis of the bilateral lower extremities venou s structures is performed with 2-D imaging. The bilateral common femoral, superficial femoral, popliteal, posterior tibial, proximal greater saphenous and profunda femoral veins are imaged. There is normal luminal compressibility, flow, and augmentation in the visualized deep venous structu res of the bilateral lower extremities. IMPRESSION: No evidence of a deep vein thrombosis in either lower extremity.
[2019-10-14] MEDS: Atorvastatin Calcium 40 MG TAB PO SCH (19:59)
[2019-10-15] MEDS: Levothyroxine Sodium 100 MCG TAB PO SCH (04:52)
[2019-10-15 07:42] VITALS: TEMP 97.3
[2019-10-15] MEDS ORDERED: Amlodipine 10 MG TAB PO SCH (09:00)
[2019-10-15 09:06] VITALS: BP 160/72
[2019-10-15] MEDS: Potassium Chloride 20 MEQ TAB PO SCH (09:21)
[2019-10-15] MEDS: Furosemide 80 MG TAB PO SCH (09:22)
[2019-10-15] MEDS: Aspirin 81 mg Enteric Coated Tablet PO SCH (09:22)
[2019-10-15] MEDS: Enoxaparin Sodium 40 MG/0.4 ML SYRINGE SC SCH (09:22)
[2019-10-15] MEDS: Finasteride 5 MG TAB PO SCH (09:22)
[2019-10-15] MEDS: Insulin Glargine 38 UNITS in Pre-Filled Syringe 1 EACH SC SCH (09:23)
[2019-10-15] MEDS: Metoprolol Tartrate 50 MG TAB PO SCH (09:24)
[2019-10-15] MEDS: Tamsulosin HCl 0.4 MG CAP PO SCH (09:24)
[2019-10-15] MEDS ORDERED: Regadenoson 0.4 MG/5 ML SYRINGE ONE (09:49)
--- NOTE | 2019-10-15 21:51 | DIS ---
DATE OF ADMISSION: 10/13/2019 DATE OF DISCHARGE: 10/15/2019 HISTORY OF PRESENT ILLNESS: This is an 84-year-old male with past medical history of coronary artery disease, status post CABG over 10 years ago; hypertension; insulin-dependent diabetes mellitus; and BPH, who presented to the hospital with complains of chest pain that started yesterday while working in the yard. The patient described the pain as pressure to the center of his chest radiating to both his shoulders and associated with shortness of breath. HOSPITAL COURSE: Initial workup in the emergency department including EKG and troponin level were unremarkable. The patient was placed on observation and his troponin levels were trended with no elevation of troponin noted. He underwent a nuclear pharmacological stress test which did not show any evidence of reversible ischemia. PHYSICAL EXAMINATION: On the day of discharge; GENERAL: The patient is alert and oriented x3. HEENT: His head is normocephalic and atraumatic. NECK: Supple. CHEST: Showed clear airways bilaterally. CARDIOVASCULAR: Revealed normal S1, S2. RRR. No murmurs, rubs, or gallops. ABDOMEN: Showed soft abdomen that is nondistended and nontender with positive bowel sounds. EXTREMITIES: Showed no edema. NEUROLOGIC: Intact. DISCHARGE DIAGNOSES: 1. Chest pain. 2. Hypertensive urgency. 3. Obesity. 4. Insulin-dependent diabetes. DISCHARGE MEDICATIONS: 1. Aspirin 81 mg orally daily. 2. Atorvastatin 40 mg orally nightly. 3. Finasteride 5 mg orally daily. 4. Furosemide 80 mg orally daily. 5. Humulin 70/30 at 45 units subcu b.i.d. 6. Isosorbide mononitrate 60 mg orally daily. 7. Levothyroxine 100 mcg orally daily. 8. Metoprolol tartrate 50 mg orally 1-1/2 tablet twice daily. 9. Potassium chloride 10 mEq capsule extended release, 2 tablets orally twice daily. 10. Sitagliptin phosphate/metformin 50 mg/1000 mg one tablet orally twice daily. 11. Tamsulosin 0.4 mg orally daily. DISCHARGE INSTRUCTIONS: The patient was instructed to follow up with his family doctor within 1 week. Activity as tolerated. Diet is cardiac. Job ID: [id number]
--- NOTE | 2019-10-16 05:41 | STRESS ---
Acquisition Time: 2019-10-14 10:14:47 Total Exercise Time: 00:01:00 Test Indications: CHEST PAIN Medications: Protocol: LEXISCAN Max HR: 078 BPM 56% of Pred: 138 BPM Max BP: 152/084 mmHG Max Work Load: 1.0 METS RESTING ECG: NORMAL SINUS RHYTHM AT 60 BPM WITH LEFT AXIS DEVIATION, LEFT ANTERIOR FASCICULAR BLOCK, AND NON SPECIFIC ST AND T WAVE CHANGES SYMPTOMS: NONE NORMAL BP RESPONSE ECTOPY: NONE ECG STRESS: NO SIGNIFICANT CHANGES INTERPRETATION: INDETERMINATE ECG/AWAIT NUCLEAR IMAGES FOR DEFINITIVE DIAGNOSIS Confirmed by RADHA LE ELLEN ([id number]) on 10/16/2019 5:41:29 AM Referred By: MD Matt TOMLIN Confirmed By:REAL LE PA-C
--- NOTE | 2019-10-20 14:50 | EKG ---
Test Reason : Blood Pressure : / mmHG Vent. Rate : 064 BPM Atrial Rate : 064 BPM P-R Int : 000 ms QRS Dur : 092 ms QT Int : 452 ms P-R-T Axes : 080 -48 -40 degrees QTc Int : 466 ms Electronic atrial pacemaker Pulmonary disease pattern Left anterior fascicular block Inferior-posterior infarct , age undetermined Abnormal ECG Confirmed by RADHA VALENZUELA MD ([id number]), magazine editor MARGRET CHESTER ([id number]) on 10/20/2019 2:49:57 PM Referred By: Confirmed By:RADHA VALENZUELA MD
== END 2019-10-15 11:34 | disposition home or self-care (01) ==
LOC: ERS 08:34 → 2SW 12:29
PROVIDERS: ADMIT Internal Medicine; ATTEND Internal Medicine
DX: R07.89 Other chest pain (principal); I16.0 Hypertensive urgency; I11.0 Hypertensive heart disease with heart failure; I50.9 Heart failure, unspecified; E11.9 Type 2 diabetes mellitus without complications; I25.10 Atherosclerotic heart disease of native coronary artery without angina pectoris; N40.0 Benign prostatic hyperplasia without lower urinary tract symptoms; J44.9 Chronic obstructive pulmonary disease, unspecified; I48.91 Unspecified atrial fibrillation; E66.9 Obesity, unspecified; Z68.36 Body mass index [BMI] 36.0-36.9, adult; Z87.891 Personal history of nicotine dependence; Z79.4 Long term (current) use of insulin; Z79.82 Long term (current) use of aspirin; Z79.899 Other long term (current) drug therapy; Z88.0 Allergy status to penicillin; Z95.1 Presence of aortocoronary bypass graft
CPT/HCPCS: 71045; 78452; 80048; 80053; 82550; 82962 ×3; 84484 ×2; 85025 ×2; 93005; 93017; 93970; 96372; 97139 ×2; 99285; A9500; G0378 ×4; 36415; 36416; J1650; J1815; J2785

== ENCOUNTER 2021-06-12 08:35 | Outpatient (CLI) | payer MEDICARE ==
[2021-06-12 10:31] LABS: INR-International Normal Ratio 1.1; PTT 28.8 sec (22.0-33.0); Prothrombin Time 12.1 sec (9.5-12.1)
[2021-06-12 10:39] LABS: Anion Gap 12 mmol/L (10-20); BUN (Urea Nitrogen) 20 mg/dL (8.4-25.7); Calc. Creatinine Clearance 0 mL/min (70-130); Calcium 9.3 mg/dL (7.8-10.44); Carbon Dioxide 25 mmol/L (23-31); Chloride 107 mmol/L (98-107); Glucose 79 mg/dL (83-110); Potassium 3.8 mmol/L (3.5-5.1); Sodium 140 mmol/L (136-145)
[2021-06-12 10:47] LABS: Hemoglobin 10.5 g/dL (13.5-17.5); Mean Corpuscular HGB CONC 32.5 g/dL (32.0-36.0); Mean Corpuscular Hemoglobin 29.6 pg (27.0-33.0); Mean Platelet Volume 10.6 fl (7.4-10.4); Platelet Count 270 10x3/uL (150-450); RBC Distribution Width 14.6 % (11.5-14.5); Red Blood Cell (RBC) Count 3.55 10x6/uL (4.32-5.72); White Blood Cell (WBC) Count 7.1 10x3/uL (3.5-10.5)
[2021-06-12 17:18] LABS: SARS-CoV-2 PCR by NAA Not Detected (NotDetected)
== END 2021-06-12 08:36 | disposition home or self-care (01) ==
LOC: LABBT 08:35
PROVIDERS: ATTEND Internal Medicine Cardiovascular Disease
DX: Z01.812 Encounter for preprocedural laboratory examination (principal); Z20.822 Contact with and (suspected) exposure to COVID-19
CPT/HCPCS: 80048; 85027; 85610; 85730; U0003; U0005

== ENCOUNTER 2021-06-17 05:55 | Day surgery (SDC) | payer MEDICARE ==
[2021-06-16 11:29] VITALS: BMI 39.8
[2021-06-17] MEDS ORDERED: Fentanyl 100 MCG/2 ML VIAL ONE (06:56)
[2021-06-17] MEDS ORDERED: PROPOFOL 200 MG/20 ML VIAL ONE (07:20)
[2021-06-17] MEDS ORDERED: Lidocaine 1% PF 5 ML VIAL ONE (07:20)
== END 2021-06-17 08:40 | disposition home or self-care (01) ==
LOC: CCL 05:55
PROVIDERS: ATTEND Internal Medicine Cardiovascular Disease
PROC: B24BZZ4 Ultrasonography of Heart with Aorta, Transesophageal (ICD-10-PCS; principal; 2021-06-17)
DX: I48.91 Unspecified atrial fibrillation (principal); I27.20 Pulmonary hypertension, unspecified; I08.3 Combined rheumatic disorders of mitral, aortic and tricuspid valves; I70.0 Atherosclerosis of aorta; Z79.01 Long term (current) use of anticoagulants; Z79.4 Long term (current) use of insulin; Z79.82 Long term (current) use of aspirin; Z79.84 Long term (current) use of oral hypoglycemic drugs; Z79.899 Other long term (current) drug therapy; Z95.0 Presence of cardiac pacemaker; Z95.1 Presence of aortocoronary bypass graft; Z95.818 Presence of other cardiac implants and grafts
CPT/HCPCS: 93312; J2704; J3010

== ENCOUNTER 2021-09-29 10:23 | Outpatient (CLI) | payer MEDICARE | END 2021-09-29 10:24 | disposition home or self-care (01) | LOC: CT 10:23 | PROVIDERS: ATTEND Internal Medicine Cardiovascular Disease | DX: I48.19 Other persistent atrial fibrillation (principal); T82.898A Other specified complication of vascular prosthetic devices, implants and grafts, initial encounter | CPT/HCPCS: 71275; 82565 ==